=== PATIENT | female | born 1975 | race Caucasian/White ===

== ENCOUNTER 2019-10-22 00:09 | Emergency (ER) | payer MEDICARE, MEDICAID, SELFPAY ==
--- NOTE | 2019-10-22 00:14 | ED_ITS ---
HPI - Ear Problem General: Chief complaint: General Medical Stated complaint: LEFT EAR PAIN Time Seen by Provider: 10/22/19 00:13 Source: patient Mode of arrival: ambulatory Limitations: no limitations History of Present Illness: HPI Narrative: Patient comes in today with 2-day history of left ear pain. Patient reports a cough and cold symptoms for the last week. Patient appears mildly unwell. Patient appears in no acute distress. Patient appears in mild pain. Associated symptoms: Reports ear or mastoid pain Review of Systems General: Reports: 10 or more systems reviewed and unremarkable except in HPI and below ENMT: Reports: ear pain PFSH ED PFSH: Social History Smoking and tobacco status: current every day smoker Physical Exam Const: COMMON NORMALS: no apparent distress and oriented x3 GENERAL APPEARANCE: cooperative HENMT: COMMON NORMALS: normocephalic, external ears normal, EAC's normal and external nose normal HEAD & SCALP: normal to inspection and normocephalic FACE & SINUS: normal facial exam NOSE: external nose normal GENERAL EAR: hearing not grossly impaired EXTERNAL EAR: Yes external ears normal EXTERNAL AUDITORY CANAL: EAC's normal TYMPANIC MEMBRANE: TM abnormal TM laterality: left Details: dull and erythematous MOUTH: oral and palatal mucosa normal THROAT: posterior oropharynx normal Eye: COMMON NORMALS: PERRL and EOMs intact bilaterally PUPIL: Yes PERRL Neck/C-Spine: COMMON NORMALS: full ROM and no lymphadenopathy Lymph: LYMPHATIC: no lymphedema noted Chest: COMMONS NORMALS: inspection of chest normal and palpation of chest normal Resp: COMMON NORMALS: normal respiratory effort and clear to auscultation bilaterally AUSCULTATION: clear to auscultation bilaterally Cardio: COMMON NORMALS: regular rate and regular rhythm RATE: regular rate RHYTHM: regular rhythm GI: COMMON NORMALS: normal to inspection, nondistended, normoactive bowel sounds and non-tender : COMMON NORMALS: Yes no CVA tenderness BLADDER/KIDNEY EXAM: Yes no CVA tenderness Back/Pelvis: COMMON NORMALS: no CVA tenderness and thoracic and lumbar spine normal to inspection Extremity: COMMON NORMALS: normal to inspection GENERAL: No edema Neuro: COMMON NORMALS: oriented x3, moves all extremities and no focal motor deficits Psych: COMMON NORMALS: mental status grossly normal and cooperative Skin: COMMON NORMALS: no rashes or lesions noted GENERAL SKIN EXAM: no rashes or lesions noted Course Vital Signs: Vital signs: Vital Signs Temperature 97.5 F L 10/22/19 00:18 Pulse Rate 75 10/22/19 00:18 Respiratory Rate 18 10/22/19 00:18 Blood Pressure 134/83 10/22/19 00:18 Pulse Oximetry 96 10/22/19 00:18 MDM - Ear MDM Narrative: Medical decision making narrative: Patient comes in today with left ear pain. On exam we note cerumen in the left ear canal and tenderness with movement of the auricle of the ear. No significant canal swelling. Tympanic membrane is erythematous and dull. Differential diagnosis otitis externa, otitis media, otalgia, sinusitis, mastoiditis. Exam notes some otitis media with some cerumen in the bilateral canals. Patient will be put on amoxici llin thousand milligrams twice daily for 10 days. Patient will also be written for some carbamide peroxide drops for the ceruminosis. Patient reports understanding of care plan and need for follow-up. Discharge Plan Discharge Patient Disposition: Home, Self-Care Clinical Impression: Acute left otitis media, Excessive cerumen in left ear canal Condition: Stable Prescriptions: New Ear Drops (carbamide peroxide) 6.5 % drops 5 drp EAR-BOTH BID 4 Days Qty: 30 RF: 0 amoxicillin 500 mg capsule 1,000 mg PO BID Qty: 40 RF: 0 Discharge Orders: Discharge Order (Routine); Ordered 10/22/19 Ordered By: Awais Martel Discharge Diet: Usual diet Discharge Activity: Resume usual activity Patient Instructions: Cerumen Impaction (ED) Activity Restrictions/Additional Instructions: Acetaminophen and ibuprofen for pain Medications as directed Antibiotics as directed Follow-up with primary care in one week Case management will contact you with assistance finding primary care Coding Level of Care Code ED [employer] Operator for Snehal Hyde Exam Problem Focused
[2019-10-22 00:18] VITALS: BP 134/83; PULSE 75; RESP 18; TEMP 36.4; O2SAT 96; BMI 45.7
[2019-10-22 00:26] VITALS: BP 122/98; PULSE 73; RESP 14; O2SAT 94
[2019-10-22] MEDS: amoxicillin 500 mg Capsule 1000 MG PO (00:35)
[2019-10-22 01:14] VITALS: BP 134/92; PULSE 78; RESP 14; O2SAT 94
--- NOTE | 2019-10-27 14:05 | DCPLANNER ---
research laboratory manager had message to speak with patient about getting established with a primary care physician. research laboratory manager spoke with patient, she stated that she did want to have help in getting established with a primary care physician. research laboratory manager called [facility] [place], spoke with Mayra, patient was established and a followup appointment was scheduled for Friday, November 03, 2019 at 9:30 with TRAFFIC RATE CLERK, Carolina Raza. research laboratory manager called patient and gave patient the appointment information.
--- NOTE | 2019-11-05 17:27 | DCPLANNER ---
Patient did attend [place]19 [place] [facility] [place]
== END 2019-10-22 01:16 | disposition home or self-care (01) ==
PROVIDERS: Emergency Provider Nurse Practitioner Family
DX: H66.92 Otitis media, unspecified, left ear (principal); H61.22 Impacted cerumen, left ear; F17.200 Nicotine dependence, unspecified, uncomplicated
CPT/HCPCS: 99281; 99282

== ENCOUNTER → 2019-12-02 07:39 | Outpatient (BNVA) | payer MEDICARE, MEDICAID, SELFPAY | PROVIDERS: PCP Nurse Practitioner; Referring Provider Nurse Practitioner; Visit Provider Specialist | DX: G43.711 Chronic migraine without aura, intractable, with status migrainosus (principal); F31.9 Bipolar disorder, unspecified; F17.210 Nicotine dependence, cigarettes, uncomplicated; R73.03 Prediabetes; E03.9 Hypothyroidism, unspecified; F41.8 Other specified anxiety disorders; Z76.89 Persons encountering health services in other specified circumstances | CPT/HCPCS: 80053; 80061; 82044; 83036; 84443; 85025; 99204 ==

== ENCOUNTER 2019-12-17 08:40 | Outpatient (CLI) | payer MEDICARE, MEDICAID, SELFPAY ==
--- NOTE | 2019-12-17 09:00 | CT_ITS ---
WS: [id number] CT HEAD NONCONTRAST HISTORY: migraine TECHNIQUE: Contiguous axial imaging performed through the brain in 2.5 mm imaging. Bone and soft tiss ue windows. All CT scans at [facility] use at least one of these dose optimization techniq ues: automated exposure control; mA and/or kV adjustment per patient size (includes targeted exams wh ere dose is matched to clinical indication); or iterative reconstruction. DLP: 925.91 mGycm COMPARISON: None available. No acute intracranial hemorrhage, midline shift or mass effect. No atrophy or prior infarcts or herniation. Ventricles: Normal size with no hydrocephalus. Paranasal sinuses: As visualized are clear. Mastoid air cells: Well pneumatized. Calvarium and scalp: Skull is intact with no soft tissue edema or swelling. CT/CT head wo con* [id number] IMPRESSION: Negative head CT.
== END 2019-12-17 08:41 | disposition home or self-care (01) ==
LOC: RADWPI 08:44
PROVIDERS: PCP Nurse Practitioner; Visit Provider Specialist
DX: G43.111 Migraine with aura, intractable, with status migrainosus (principal)
CPT/HCPCS: 70450

== ENCOUNTER 2019-12-28 21:41 | Inpatient (IN) | payer MEDICARE, MEDICAID, SELFPAY ==
[2019-12-28 21:42] VITALS: BP 165/110; PULSE 93; RESP 18; TEMP 37.1; O2SAT 96
--- NOTE | 2019-12-28 21:50 | CTR_ITS ---
PROCEDURE INFORMATION: Exam: CT Head Without Contrast Exam date and time: 12/28/2019 10:21 PM Age: 44 years old Clinical indication: Altered mental status/memory loss; Additional info: AMS TECHNIQUE: Imaging protocol: Computed tomography of the head without contrast. Total DLP: 763.73 mGy-cm Radiation optimization: All CT scans at this facility use at least one of these dose optimization techniques: automated exposure control; mA and/or kV adjustment per patient size (includes targeted exams where dose is matched to clinical indication); or iterative reconstruction. COMPARISON: CT head wo con* [id number] 12/17/2019 8:59 AM FINDINGS: Brain: Normal. No hemorrhage. Unremarkable white matter. No mass effect. Ventricles: Normal. No ventriculomegaly. Bones/joints: Unremarkable. No acute fracture. Sinuses: Visualized sinuses are unremarkable. No fluid levels. Mastoid air cells: Visualized mastoid air cells are well aerated. Soft tissues: Unremarkable. CT/CT head wo con* [id number] IMPRESSION: No acute intracranial abnormality. Radiation Dose CTDIVOL = (mGy): DLP = 763.73 (mGy-cm)
--- NOTE | 2019-12-28 21:50 | XR_ITS ---
WS: [id number] CHEST XRAY TECHNIQUE: Portable chest. CLINICAL INFORMATION: ams COMPARISON: None. FINDINGS: Heart: Normal cardiac silhouette. Lungs: Lungs are clear. No consolidation or pleural effusion. Bones: Normal visualized bony structures. XR/XR chest 1V portable [id number] IMPRESSION: Normal chest
--- NOTE | 2019-12-28 21:50 | ECG_ITS ---
Measurements Intervals [place] Rate: 83 P: 52 MA: 165 QRS: 10 QRSD: 83 T: 15 QT: 403 QTc: 475 SINUS RHYTHM MINIMAL VOLTAGE CRITERIA FOR LVH, CONSIDER NORMAL VARIANT [MEETS CRITERIA IN ONE OF: R(aVL), S(V1), R(V5), R(V5/V6)+S(V1)] No previous ECG available for comparison Electronically Signed On 12-30-2019 6:38:29 CDT by Reji Spangler M.D. [email or web address]
--- NOTE | 2019-12-28 21:53 | ED_ITS ---
Documented by User: Dulce Taveras MD 12/29/19 11:03 HPI - Psych General: Chief Complaint: Psychiatric Symptoms Stated Complaint: confusion Time Seen by Provider: 12/28/19 21:45 Source: patient and EMS Mode of arrival: EMS Limitations: altered mental status History of Present Illness: HPI Narrative: 44-year-old female brought in by EMS as police were called to residents and they called EMS. Patient has a history of alcoholism. Patient here is being very avoidant and not answering questions. She did tell me the date and her name and her 's name but unable to give any history. I am unsure why police were called to residents and EMS is unsure either. Patient denies any pain and has no medical complaints. She does appear quite confused though and will only answer simple questions for me. Associated symptoms: Deny depression Review of Systems Const: Denies: fever, chills, body aches or change in appetite Eyes: Denies: blurry vision or eye discomfort ENMT: Denies: throat pain or dental pain Card: Denies: chest pain Resp: Denies: shortness of breath GI: Denies: abdominal pain, nausea, vomiting or diarrhea : Denies: painful urination Musc: Denies: neck pain or back pain Skin/Breast: Denies: rash Neuro: Denies: headache Psych: Reports: anxiety; Denies: depression Carlos Manuel/Lymph: Denies: easy bruising All/Imm: Denies: hives PFSH ED PFSH: Medical History Endometriosis Hypothyroidism IBS (irritable bowel syndrome) Migraine Surgical History S/P appendectomy S/P cholecystectomy S/P endometrial ablation S/P foot surgery S/P sinus surgery S/P tonsillectomy Family History Grandmother Dementia Stroke Cancer Mother Hypertension Father Hypertension Grandfather Diabetes Social History Smoking and tobacco status: never smoked Alcohol intake: current Alcohol intake frequency: holidays/special occasions only History of recent travel: No Female Reproductive History: Date of last menstrual period: 10/01/19 Physical Exam Const: COMMON NORMALS: oriented x3 EXAM LIMITATIONS: altered mental status GENERAL APPEARANCE: disheveled HENMT: COMMON NORMALS: normocephalic and head/scalp atraumatic HEAD & SCALP: normocephalic and atraumatic Eye: COMMON NORMALS: PERRL and EOMs intact bilaterally PUPIL: Yes PERRL Neck/C-Spine: COMMON NORMALS: full ROM and supple Chest: COMMONS NORMALS: inspection of chest normal and palpation of chest normal Resp: COMMON NORMALS: normal respiratory effort, no retractions, no use of accessory muscles and clear to auscultation bilaterally AUSCULTATION: clear to auscultation bilaterally Cardio: COMMON NORMALS: regular rate, regular rhythm and no murmurs RATE: regular rate RHYTHM: regular rhythm GI: COMMON NORMALS: normal to inspection, nondistended, normoactive bowel sounds, soft to palpation, non-tender and no masses PALPATION: Yes soft Extremity: COMMON NORMALS: normal to inspection and full ROM Neuro: COMMON NORMALS: oriented x3, moves all extremities and no focal motor deficits Psych: APPEARANCE: Yes unkempt and Yes disheveled ATTITUDE: Yes paranoid, Yes evasive and Yes guarded Skin: COMMON NORMALS: no rashes or lesions noted and no wounds GENERAL SKIN EXAM: no rashes or lesions noted MDM - Psych MDM Narrative: Medical decision making narrative: Patient's care turned over to Dr. Prieto. Patient is pending CT head along with labs. Patient appears to be acutely psychotic at this time. Lab Data: Labs: Lab Results 12/28/19 12/28/19 12/28/19 Range/Units 22:20 22:30 22:30 WBC 12.2 H (4.0-10.0) 10^3/ uL RBC 4.49 (4.1-5.3) 10^6/u L Hgb 13.4 (11.5-15.3) g/dL Hct 42.4 (37.0-47.0) % MCV 94.4 (81-99) fL MCH 29.8 (28.0-34.0) pg MCHC 31.6 (30.0-36.0) g/dL RDW 13.6 (12.1-15.1) % Plt Count 271 (130-400) 10^3/c mm MPV 11.5 H (7.4-10.4) fL Neut % (Auto) 66.6 % Lymph % (Auto) 24.7 % [facility] % (Auto) 6.8 % Eos % (Auto) 1.1 % Baso % (Auto) 0.4 % Neut # (Auto) 8.1 H (1.8-7.7) 10^3/u L Lymph # (Auto) 3.0 (0.8-4.8) 10^3/u L [facility] # (Auto) 0.8 (0.2-0.9) 10^3/u L Eos # (Auto) 0.1 (0.0-0.8) 10^3/u L Baso # (Auto) 0.1 (0.0-0.1) 10^3/u L Nucleated RBC % (a uto) 0 % Nucleated RBCs # 0.0 /100WBC Specimen Type Sample Site ABG pH (7.35-7.45) ABG pCO2 (35-45) mmHg ABG pO2 (80.0-100.0) mmH g ABG HCO3 (22-26) mmol/L ABG Base Excess (-2.0-2.0) mmol/ L Abraham Test Hematocrit (37-47) % O2 Delivery Device Psychiatric Technician ID Sodium 140 (136-145) mmol/L Potassium 4.2 (3.5-5.1) mmol/L Chloride 100 (98-107) mmol/L Carbon Dioxide 19 L (22-29) mmol/L Anion Gap 25.2 H (5-19) BUN 10 (6-20) mg/dL Creatinine 0.9 (0.5-0.9) mg/dL GFR Calculation 67.4 L (90-130) mL/min Glucose 80 (65-115) mg/dL POC Glucose 87 (70-110) mg/dL Calculated Osmolal ity 285 (285-295) mOsm/k g Calcium 9.3 (8.5-10.5) mg/dL Magnesium (1.7-2.3) mg/dL Total Bilirubin 0.4 (0.15-1.2) mg/dL AST 28 (0-32) U/L ALT 17 (0-33) U/L Alkaline Phosphata se 82 (35-105) IU/L Troponin T Baselin e (0-10) ng/mL Total Protein 7.1 (6.6-8.7) g/dL Albumin 4.2 (3.5-5.2) g/dL Globulin 2.9 (1.3-4.6) g/dL TSH 3.66 (0.27-4.20) uIU/ mL HCG, Qual (Negative) Ser , Neema i-Qnt mIU/mL Urine Color (Yellow) Urine Appearance (CLEAR) Urine pH (5-7) Ur Specific Gravit y (1.005-1.030) Urine Protein (Negative) Urine Glucose (UA) (Normal) Urine Ketones (Negative) Urine Blood (Negative) Urine Nitrate (Negative) Urine Bilirubin (NEGATIVE) Urine Urobilinogen (Negative) mg/dL Ur Leukocyte Brandee ase (Negative) Urine RBC (0-2) /hpf Urine WBC (0-5) /hpf Ur Squamous Epith Cells (0-5) Urine Bacteria (NONE) Urine Trichomonas Salicylates < 0.3 L (3-10) mg/dL Urine Opiates Scre en (Negative) ng/mL Acetaminophen < 5.0 L (10-30) ug/mL Ur Barbiturates Sc reen (Negative) ng/mL Phenytoin (10-20) ug/mL Valproic Acid (50-100) mcg/mL Carbamazepine (4.0-12.0) ug/mL Ur Phencyclidine S crn (Negative) ng/mL Ur Amphetamines Sc reen (Negative) ng/mL U Benzodiazepines Scrn (Negative) ng/mL [place] (0.6-1.2) mmol/L Urine Cocaine Scre en (Negative) ng/mL U Marijuana (THC) Screen (Negative) ng/mL Ethyl Alcohol < 10 (0-10) mg/dL Serum Ketones (Negative) 12/28/19 12/28/19 12/28/19 Range/Units 22:30 23:50 23:50 WBC (4.0-10.0) 10^3/ uL RBC (4.1-5.3) 10^6/u L Hgb (11.5-15.3) g/dL Hct (37.0-47.0) % MCV (81-99) fL MCH (28.0-34.0) pg MCHC (30.0-36.0) g/dL RDW (12.1-15.1) % Plt Count (130-400) 10^3/c mm MPV (7.4-10.4) fL Neut % (Auto) % Lymph % (Auto) % [facility] % (Auto) % Eos % (Auto) % Baso % (Auto) % Neut # (Auto) (1.8-7.7) 10^3/u L Lymph # (Auto) (0.8-4.8) 10^3/u L [facility] # (Auto) (0.2-0.9) 10^3/u L Eos # (Auto) (0.0-0.8) 10^3/u L Baso # (Auto) (0.0-0.1) 10^3/u L Nucleated RBC % (a uto) % Nucleated RBCs # /100WBC Specimen Type Sample Site ABG pH (7.35-7.45) ABG pCO2 (35-45) mmHg ABG pO2 (80.0-100.0) mmH g ABG HCO3 (22-26) mmol/L ABG Base Excess (-2.0-2.0) mmol/ L Abraham Test Hematocrit (37-47) % O2 Delivery Device Psychiatric Technician ID Sodium (136-145) mmol/L Potassium (3.5-5.1) mmol/L Chloride (98-107) mmol/L Carbon Dioxide (22-29) mmol/L Anion Gap (5-19) BUN (6-20) mg/dL Creatinine (0.5-0.9) mg/dL GFR Calculation (90-130) mL/min Glucose (65-115) mg/dL POC Glucose (70-110) mg/dL Calculated Osmolal ity (285-295) mOsm/k g Calcium (8.5-10.5) mg/dL Magnesium (1.7-2.3) mg/dL Total Bilirubin (0.15-1.2) mg/dL AST (0-32) U/L ALT (0-33) U/L Alkaline Phosphata se (35-105) IU/L Troponin T Baselin e (0-10) ng/mL Total Protein (6.6-8.7) g/dL Albumin (3.5-5.2) g/dL Globulin (1.3-4.6) g/dL TSH (0.27-4.20) uIU/ mL HCG, Qual (Negative) Ser , Neema i-Qnt 0.50 mIU/mL Urine Color Yellow (Yellow) Urine Appearance Cloudy (CLEAR) Urine pH 5 (5-7) Ur Specific Gravit y 1.030 (1.005-1.030) Urine Protein Neg (Negative) Urine Glucose (UA) Norm (Normal) Urine Ketones 3+ H (Negative) Urine Blood 2+ H (Negative) Urine Nitrate Negative (Negative) Urine Bilirubin Neg (NEGATIVE) Urine Urobilinogen Norm (Negative) mg/dL Ur Leukocyte Brandee ase 2+ H (Negative) Urine RBC 0-4 H (0-2) /hpf Urine WBC 5-10 H (0-5) /hpf Ur Squamous Epith Cells 10-15 H (0-5) Urine Bacteria 1+ H (NONE) Urine Trichomonas 1+ H Salicylates (3-10) mg/dL Urine Opiates Scre en Negative (Negative) ng/mL Acetaminophen (10-30) ug/mL Ur Barbiturates Sc reen Negative (Negative) ng/mL Phenytoin (10-20) ug/mL Valproic Acid (50-100) mcg/mL Carbamazepine (4.0-12.0) ug/mL Ur Phencyclidine S crn Negative (Negative) ng/mL Ur Amphetamines Sc reen Negative (Negative) ng/mL U Benzodiazepines Scrn Negative (Negative) ng/mL [place] (0.6-1.2) mmol/L Urine Cocaine Scre en Negative (Negative) ng/mL U Marijuana (THC) Screen Positive H (Negative) ng/mL Ethyl Alcohol (0-10) mg/dL Serum Ketones (Negative) 12/28/19 12/29/19 12/29/19 Range/Units 23:50 00:48 00:48 WBC (4.0-10.0) 10^3/ uL RBC (4.1-5.3) 10^6/u L Hgb (11.5-15.3) g/dL Hct (37.0-47.0) % MCV (81-99) fL MCH (28.0-34.0) pg MCHC (30.0-36.0) g/dL RDW (12.1-15.1) % Plt Count (130-400) 10^3/c mm MPV (7.4-10.4) fL Neut % (Auto) % Lymph % (Auto) % [facility] % (Auto) % Eos % (Auto) % Baso % (Auto) % Neut # (Auto) (1.8-7.7) 10^3/u L Lymph # (Auto) (0.8-4.8) 10^3/u L [facility] # (Auto) (0.2-0.9) 10^3/u L Eos # (Auto) (0.0-0.8) 10^3/u L Baso # (Auto) (0.0-0.1) 10^3/u L Nucleated RBC % (a uto) % Nucleated RBCs # /100WBC Specimen Type Sample Site ABG pH (7.35-7.45) ABG pCO2 (35-45) mmHg ABG pO2 (80.0-100.0) mmH g ABG HCO3 (22-26) mmol/L ABG Base Excess (-2.0-2.0) mmol/ L Abraham Test Hematocrit (37-47) % O2 Delivery Device Psychiatric Technician ID Sodium (136-145) mmol/L Potassium (3.5-5.1) mmol/L Chloride (98-107) mmol/L Carbon Dioxide (22-29) mmol/L Anion Gap (5-19) BUN (6-20) mg/dL Creatinine (0.5-0.9) mg/dL GFR Calculation (90-130) mL/min Glucose (65-115) mg/dL POC Glucose (70-110) mg/dL Calculated Osmolal ity (285-295) mOsm/k g Calcium (8.5-10.5) mg/dL Magnesium 1.9 (1.7-2.3) mg/dL Total Bilirubin (0.15-1.2) mg/dL AST (0-32) U/L ALT (0-33) U/L Alkaline Phosphata se (35-105) IU/L Troponin T Baselin e (0-10) ng/mL Total Protein (6.6-8.7) g/dL Albumin (3.5-5.2) g/dL Globulin (1.3-4.6) g/dL TSH (0.27-4.20) uIU/ mL HCG, Qual Negative (Negative) Ser , Neema i-Qnt mIU/mL Urine Color (Yellow) Urine Appearance (CLEAR) Urine pH (5-7) Ur Specific Gravit y (1.005-1.030) Urine Protein (Negative) Urine Glucose (UA) (Normal) Urine Ketones (Negative) Urine Blood (Negative) Urine Nitrate (Negative) Urine Bilirubin (NEGATIVE) Urine Urobilinogen (Negative) mg/dL Ur Leukocyte Brandee ase (Negative) Urine RBC (0-2) /hpf Urine WBC (0-5) /hpf Ur Squamous Epith Cells (0-5) Urine Bacteria (NONE) Urine Trichomonas Salicylates (3-10) mg/dL Urine Opiates Scre en (Negative) ng/mL Acetaminophen (10-30) ug/mL Ur Barbiturates Sc reen (Negative) ng/mL Phenytoin 0.8 L (10-20) ug/mL Valproic Acid 2.8 L (50-100) mcg/mL Carbamazepine 2.0 L (4.0-12.0) ug/mL Ur Phencyclidine S crn (Negative) ng/mL Ur Amphetamines Sc reen (Negative) ng/mL U Benzodiazepines Scrn (Negative) ng/mL [place] (0.6-1.2) mmol/L Urine Cocaine Scre en (Negative) ng/mL U Marijuana (THC) Screen (Negative) ng/mL Ethyl Alcohol (0-10) mg/dL Serum Ketones Negative (Negative) 12/29/19 12/29/19 12/29/19 Range/Units 00:48 00:48 00:49 WBC (4.0-10.0) 10^3/ uL RBC (4.1-5.3) 10^6/u L Hgb (11.5-15.3) g/dL Hct (37.0-47.0) % MCV (81-99) fL MCH (28.0-34.0) pg MCHC (30.0-36.0) g/dL RDW (12.1-15.1) % Plt Count (130-400) 10^3/c mm MPV (7.4-10.4) fL Neut % (Auto) % Lymph % (Auto) % [facility] % (Auto) % Eos % (Auto) % Baso % (Auto) % Neut # (Auto) (1.8-7.7) 10^3/u L Lymph # (Auto) (0.8-4.8) 10^3/u L [facility] # (Auto) (0.2-0.9) 10^3/u L Eos # (Auto) (0.0-0.8) 10^3/u L Baso # (Auto) (0.0-0.1) 10^3/u L Nucleated RBC % (a uto) % Nucleated RBCs # /100WBC Specimen Type Arterial Sample Site Radial, left ABG pH 7.35 (7.35-7.45) ABG pCO2 33.4 L (35-45) mmHg ABG pO2 92.6 (80.0-100.0) mmH g ABG HCO3 18.2 L (22-26) mmol/L ABG Base Excess -6.5 L (-2.0-2.0) mmol/ L Abraham Test N/a Hematocrit 42.2 (37-47) % O2 Delivery Device Room air Psychiatric Technician ID [email or web address] Sodium (136-145) mmol/L Potassium (3.5-5.1) mmol/L Chloride (98-107) mmol/L Carbon Dioxide (22-29) mmol/L Anion Gap (5-19) BUN (6-20) mg/dL Creatinine (0.5-0.9) mg/dL GFR Calculation (90-130) mL/min Glucose (65-115) mg/dL POC Glucose (70-110) mg/dL Calculated Osmolal ity (285-295) mOsm/k g Calcium (8.5-10.5) mg/dL Magnesium (1.7-2.3) mg/dL Total Bilirubin (0.15-1.2) mg/dL AST (0-32) U/L ALT (0-33) U/L Alkaline Phosphata se (35-105) IU/L Troponin T Baselin e 7 (0-10) ng/mL Total Protein (6.6-8.7) g/dL Albumin (3.5-5.2) g/dL Globulin (1.3-4.6) g/dL TSH (0.27-4.20) uIU/ mL HCG, Qual (Negative) Ser , Neema i-Qnt mIU/mL Urine Color (Yellow) Urine Appearance (CLEAR) Urine pH (5-7) Ur Specific Gravit y (1.005-1.030) Urine Protein (Negative) Urine Glucose (UA) (Normal) Urine Ketones (Negative) Urine Blood (Negative) Urine Nitrate (Negative) Urine Bilirubin (NEGATIVE) Urine Urobilinogen (Negative) mg/dL Ur Leukocyte Brandee ase (Negative) Urine RBC (0-2) /hpf Urine WBC (0-5) /hpf Ur Squamous Epith Cells (0-5) Urine Bacteria (NONE) Urine Trichomonas Salicylates (3-10) mg/dL Urine Opiates Scre en (Negative) ng/mL Acetaminophen (10-30) ug/mL Ur Barbiturates Sc reen (Negative) ng/mL Phenytoin (10-20) ug/mL Valproic Acid (50-100) mcg/mL Carbamazepine (4.0-12.0) ug/mL Ur Phencyclidine S crn (Negative) ng/mL Ur Amphetamines Sc reen (Negative) ng/mL U Benzodiazepines Scrn (Negative) ng/mL [place] 0.1 L (0.6-1.2) mmol/L Urine Cocaine Scre en (Negative) ng/mL U Marijuana (THC) Screen (Negative) ng/mL Ethyl Alcohol (0-10) mg/dL Serum Ketones (Negative) Discharge Plan Discharge Patient Disposition: Admitted As Inpatient Admit Provider: Ruth Gonzalez Clinical Impression: Acute psychosis Condition: Stable Referrals: Randi Raza FNP [Primary Care Provider] - Discharge Date/Time: 12/29/19 03:13 Coding Level of Care Code ED Ion Exchange Operator for Chg Fwd Exam Comprehensive Documented by User: Michelle Macdonald 12/29/19 02:09 HPI - Psych General: Chief Complaint: Psychiatric Symptoms Stated Complaint: confusion Time Seen by Provider: 12/28/19 21:45 PFSH ED PFSH: Medical History Endometriosis Hypothyroidism IBS (irritable bowel syndrome) Migraine Surgical History S/P appendectomy S/P cholecystectomy S/P endometrial ablation S/P foot surgery S/P sinus surgery S/P tonsillectomy Family History Grandmother Dementia Stroke Cancer Mother Hypertension Father Hypertension Grandfather Diabetes Social History Smoking and tobacco status: never smoked Alcohol intake: current Alcohol intake frequency: holidays/special occasions only History of recent travel: No MDM - Psych MDM Narrative: Medical decision making narrative: Case turned over to me from Dr. Taveras at change of shift. Patient will not answer questions consistently for me. She is alert to place and person but apparently does not want to answer questions about time. At times she is tearful and her responses do not make sense. She says things like I was not unresponsive , I think I am , she continues to call the nurse mother at times and appears to be having auditory hallucinations. The patient is continually tearful and responses do not make sense. I am concerned that she may be acutely psychotic. I see no sign of overdose or acute suicidal plan or gesture. The patient's labs are normal without any acute abnormality. I see no sign of sepsis, overdose, acidosis or other sign of ingestion. I reviewed the case in full with Dr. Noel who believes the patient is stable for admission to the neuropsychiatric unit. I then reviewed the case with Dr. Puga who is agreeable to accept the patient for admission. Lab Data: Attestation: I reviewed the patient's lab results. Labs: Lab Results 12/28/19 12/28/19 12/28/19 Range/Units 22:20 22:30 22:30 WBC 12.2 H (4.0-10.0) 10^3/ uL RBC 4.49 (4.1-5.3) 10^6/u L Hgb 13.4 (11.5-15.3) g/dL Hct 42.4 (37.0-47.0) % MCV 94.4 (81-99) fL MCH 29.8 (28.0-34.0) pg MCHC 31.6 (30.0-36.0) g/dL RDW 13.6 (12.1-15.1) % Plt Count 271 (130-400) 10^3/c mm MPV 11.5 H (7.4-10.4) fL Neut % (Auto) 66.6 % Lymph % (Auto) 24.7 % [facility] % (Auto) 6.8 % Eos % (Auto) 1.1 % Baso % (Auto) 0.4 % Neut # (Auto) 8.1 H (1.8-7.7) 10^3/u L Lymph # (Auto) 3.0 (0.8-4.8) 10^3/u L [facility] # (Auto) 0.8 (0.2-0.9) 10^3/u L Eos # (Auto) 0.1 (0.0-0.8) 10^3/u L Baso # (Auto) 0.1 (0.0-0.1) 10^3/u L Nucleated RBC % (a uto) 0 % Nucleated RBCs # 0.0 /100WBC Specimen Type Sample Site ABG pH (7.35-7.45) ABG pCO2 (35-45) mmHg ABG pO2 (80.0-100.0) mmH g ABG HCO3 (22-26) mmol/L ABG Base Excess (-2.0-2.0) mmol/ L Abraham Test Hematocrit (37-47) % O2 Delivery Device Psychiatric Technician ID Sodium 140 (136-145) mmol/L Potassium 4.2 (3.5-5.1) mmol/L Chloride 100 (98-107) mmol/L Carbon Dioxide 19 L (22-29) mmol/L Anion Gap 25.2 H (5-19) BUN 10 (6-20) mg/dL Creatinine 0.9 (0.5-0.9) mg/dL GFR Calculation 67.4 L (90-130) mL/min Glucose 80 (65-115) mg/dL POC Glucose 87 (70-110) mg/dL Calculated Osmolal ity 285 (285-295) mOsm/k g Calcium 9.3 (8.5-10.5) mg/dL Magnesium (1.7-2.3) mg/dL Total Bilirubin 0.4 (0.15-1.2) mg/dL AST 28 (0-32) U/L ALT 17 (0-33) U/L Alkaline Phosphata se 82 (35-105) IU/L Troponin T Baselin e (0-10) ng/mL Total Protein 7.1 (6.6-8.7) g/dL Albumin 4.2 (3.5-5.2) g/dL Globulin 2.9 (1.3-4.6) g/dL TSH 3.66 (0.27-4.20) uIU/ mL HCG, Qual (Negative) Ser , Neema i-Qnt mIU/mL Urine Color (Yellow) Urine Appearance (CLEAR) Urine pH (5-7) Ur Specific Gravit y (1.005-1.030) Urine Protein (Negative) Urine Glucose (UA) (Normal) Urine Ketones (Negative) Urine Blood (Negative) Urine Nitrate (Negative) Urine Bilirubin (NEGATIVE) Urine Urobilinogen (Negative) mg/dL Ur Leukocyte Brandee ase (Negative) Urine RBC (0-2) /hpf Urine WBC (0-5) /hpf Ur Squamous Epith Cells (0-5) Urine Bacteria (NONE) Urine Trichomonas Salicylates < 0.3 L (3-10) mg/dL Urine Opiates Scre en (Negative) ng/mL Acetaminophen < 5.0 L (10-30) ug/mL Ur Barbiturates Sc reen (Negative) ng/mL Phenytoin (10-20) ug/mL Valproic Acid (50-100) mcg/mL Carbamazepine (4.0-12.0) ug/mL Ur Phencyclidine S crn (Negative) ng/mL Ur Amphetamines Sc reen (Negative) ng/mL U Benzodiazepines Scrn (Negative) ng/mL [place] (0.6-1.2) mmol/L Urine Cocaine Scre en (Negative) ng/mL U Marijuana (THC) Screen (Negative) ng/mL Ethyl Alcohol < 10 (0-10) mg/dL Serum Ketones (Negative) 12/28/19 12/28/19 12/28/19 Range/Units 22:30 23:50 23:50 WBC (4.0-10.0) 10^3/ uL RBC (4.1-5.3) 10^6/u L Hgb (11.5-15.3) g/dL Hct (37.0-47.0) % MCV (81-99) fL MCH (28.0-34.0) pg MCHC (30.0-36.0) g/dL RDW (12.1-15.1) % Plt Count (130-400) 10^3/c mm MPV (7.4-10.4) fL Neut % (Auto) % Lymph % (Auto) % [facility] % (Auto) % Eos % (Auto) % Baso % (Auto) % Neut # (Auto) (1.8-7.7) 10^3/u L Lymph # (Auto) (0.8-4.8) 10^3/u L [facility] # (Auto) (0.2-0.9) 10^3/u L Eos # (Auto) (0.0-0.8) 10^3/u L Baso # (Auto) (0.0-0.1) 10^3/u L Nucleated RBC % (a uto) % Nucleated RBCs # /100WBC Specimen Type Sample Site ABG pH (7.35-7.45) ABG pCO2 (35-45) mmHg ABG pO2 (80.0-100.0) mmH g ABG HCO3 (22-26) mmol/L ABG Base Excess (-2.0-2.0) mmol/ L Abraham Test Hematocrit (37-47) % O2 Delivery Device Psychiatric Technician ID Sodium (136-145) mmol/L Potassium (3.5-5.1) mmol/L Chloride (98-107) mmol/L Carbon Dioxide (22-29) mmol/L Anion Gap (5-19) BUN (6-20) mg/dL Creatinine (0.5-0.9) mg/dL GFR Calculation (90-130) mL/min Glucose (65-115) mg/dL POC Glucose (70-110) mg/dL Calculated Osmolal ity (285-295) mOsm/k g Calcium (8.5-10.5) mg/dL Magnesium (1.7-2.3) mg/dL Total Bilirubin (0.15-1.2) mg/dL AST (0-32) U/L ALT (0-33) U/L Alkaline Phosphata se (35-105) IU/L Troponin T Baselin e (0-10) ng/mL Total Protein (6.6-8.7) g/dL Albumin (3.5-5.2) g/dL Globulin (1.3-4.6) g/dL TSH (0.27-4.20) uIU/ mL HCG, Qual (Negative) Ser , Neema i-Qnt 0.50 mIU/mL Urine Color Yellow (Yellow) Urine Appearance Cloudy (CLEAR) Urine pH 5 (5-7) Ur Specific Gravit y 1.030 (1.005-1.030) Urine Protein Neg (Negative) Urine Glucose (UA) Norm (Normal) Urine Ketones 3+ H (Negative) Urine Blood 2+ H (Negative) Urine Nitrate Negative (Negative) Urine Bilirubin Neg (NEGATIVE) Urine Urobilinogen Norm (Negative) mg/dL Ur Leukocyte Brandee ase 2+ H (Negative) Urine RBC 0-4 H (0-2) /hpf Urine WBC 5-10 H (0-5) /hpf Ur Squamous Epith Cells 10-15 H (0-5) Urine Bacteria 1+ H (NONE) Urine Trichomonas 1+ H Salicylates (3-10) mg/dL Urine Opiates Scre en Negative (Negative) ng/mL Acetaminophen (10-30) ug/mL Ur Barbiturates Sc reen Negative (Negative) ng/mL Phenytoin (10-20) ug/mL Valproic Acid (50-100) mcg/mL Carbamazepine (4.0-12.0) ug/mL Ur Phencyclidine S crn Negative (Negative) ng/mL Ur Amphetamines Sc reen Negative (Negative) ng/mL U Benzodiazepines Scrn Negative (Negative) ng/mL [place] (0.6-1.2) mmol/L Urine Cocaine Scre en Negative (Negative) ng/mL U Marijuana (THC) Screen Positive H (Negative) ng/mL Ethyl Alcohol (0-10) mg/dL Serum Ketones (Negative) 12/28/19 12/29/19 12/29/19 Range/Units 23:50 00:48 00:48 WBC (4.0-10.0) 10^3/ uL RBC (4.1-5.3) 10^6/u L Hgb (11.5-15.3) g/dL Hct (37.0-47.0) % MCV (81-99) fL MCH (28.0-34.0) pg MCHC (30.0-36.0) g/dL RDW (12.1-15.1) % Plt Count (130-400) 10^3/c mm MPV (7.4-10.4) fL Neut % (Auto) % Lymph % (Auto) % [facility] % (Auto) % Eos % (Auto) % Baso % (Auto) % Neut # (Auto) (1.8-7.7) 10^3/u L Lymph # (Auto) (0.8-4.8) 10^3/u L [facility] # (Auto) (0.2-0.9) 10^3/u L Eos # (Auto) (0.0-0.8) 10^3/u L Baso # (Auto) (0.0-0.1) 10^3/u L Nucleated RBC % (a uto) % Nucleated RBCs # /100WBC Specimen Type Sample Site ABG pH (7.35-7.45) ABG pCO2 (35-45) mmHg ABG pO2 (80.0-100.0) mmH g ABG HCO3 (22-26) mmol/L ABG Base Excess (-2.0-2.0) mmol/ L Abraham Test Hematocrit (37-47) % O2 Delivery Device Psychiatric Technician ID Sodium (136-145) mmol/L Potassium (3.5-5.1) mmol/L Chloride (98-107) mmol/L Carbon Dioxide (22-29) mmol/L Anion Gap (5-19) BUN (6-20) mg/dL Creatinine (0.5-0.9) mg/dL GFR Calculation (90-130) mL/min Glucose (65-115) mg/dL POC Glucose (70-110) mg/dL Calculated Osmolal ity (285-295) mOsm/k g Calcium (8.5-10.5) mg/dL Magnesium 1.9 (1.7-2.3) mg/dL Total Bilirubin (0.15-1.2) mg/dL AST (0-32) U/L ALT (0-33) U/L Alkaline Phosphata se (35-105) IU/L Troponin T Baselin e (0-10) ng/mL Total Protein (6.6-8.7) g/dL Albumin (3.5-5.2) g/dL Globulin (1.3-4.6) g/dL TSH (0.27-4.20) uIU/ mL HCG, Qual Negative (Negative) Ser , Neema i-Qnt mIU/mL Urine Color (Yellow) Urine Appearance (CLEAR) Urine pH (5-7) Ur Specific Gravit y (1.005-1.030) Urine Protein (Negative) Urine Glucose (UA) (Normal) Urine Ketones (Negative) Urine Blood (Negative) Urine Nitrate (Negative) Urine Bilirubin (NEGATIVE) Urine Urobilinogen (Negative) mg/dL Ur Leukocyte Brandee ase (Negative) Urine RBC (0-2) /hpf Urine WBC (0-5) /hpf Ur Squamous Epith Cells (0-5) Urine Bacteria (NONE) Urine Trichomonas Salicylates (3-10) mg/dL Urine Opiates Scre en (Negative) ng/mL Acetaminophen (10-30) ug/mL Ur Barbiturates Sc reen (Negative) ng/mL Phenytoin 0.8 L (10-20) ug/mL Valproic Acid 2.8 L (50-100) mcg/mL Carbamazepine 2.0 L (4.0-12.0) ug/mL Ur Phencyclidine S crn (Negative) ng/mL Ur Amphetamines Sc reen (Negative) ng/mL U Benzodiazepines Scrn (Negative) ng/mL [place] (0.6-1.2) mmol/L Urine Cocaine Scre en (Negative) ng/mL U Marijuana (THC) Screen (Negative) ng/mL Ethyl Alcohol (0-10) mg/dL Serum Ketones Negative (Negative) 12/29/19 12/29/19 12/29/19 Range/Units 00:48 00:48 00:49 WBC (4.0-10.0) 10^3/ uL RBC (4.1-5.3) 10^6/u L Hgb (11.5-15.3) g/dL Hct (37.0-47.0) % MCV (81-99) fL MCH (28.0-34.0) pg MCHC (30.0-36.0) g/dL RDW (12.1-15.1) % Plt Count (130-400) 10^3/c mm MPV (7.4-10.4) fL Neut % (Auto) % Lymph % (Auto) % [facility] % (Auto) % Eos % (Auto) % Baso % (Auto) % Neut # (Auto) (1.8-7.7) 10^3/u L Lymph # (Auto) (0.8-4.8) 10^3/u L [facility] # (Auto) (0.2-0.9) 10^3/u L Eos # (Auto) (0.0-0.8) 10^3/u L Baso # (Auto) (0.0-0.1) 10^3/u L Nucleated RBC % (a uto) % Nucleated RBCs # /100WBC Specimen Type Arterial Sample Site Radial, left ABG pH 7.35 (7.35-7.45) ABG pCO2 33.4 L (35-45) mmHg ABG pO2 92.6 (80.0-100.0) mmH g ABG HCO3 18.2 L (22-26) mmol/L ABG Base Excess -6.5 L (-2.0-2.0) mmol/ L Abraham Test N/a Hematocrit 42.2 (37-47) % O2 Delivery Device Room air Psychiatric Technician ID [email or web address] Sodium (136-145) mmol/L Potassium (3.5-5.1) mmol/L Chloride (98-107) mmol/L Carbon Dioxide (22-29) mmol/L Anion Gap (5-19) BUN (6-20) mg/dL Creatinine (0.5-0.9) mg/dL GFR Calculation (90-130) mL/min Glucose (65-115) mg/dL POC Glucose (70-110) mg/dL Calculated Osmolal ity (285-295) mOsm/k g Calcium (8.5-10.5) mg/dL Magnesium (1.7-2.3) mg/dL Total Bilirubin (0.15-1.2) mg/dL AST (0-32) U/L ALT (0-33) U/L Alkaline Phosphata se (35-105) IU/L Troponin T Baselin e 7 (0-10) ng/mL Total Protein (6.6-8.7) g/dL Albumin (3.5-5.2) g/dL Globulin (1.3-4.6) g/dL TSH (0.27-4.20) uIU/ mL HCG, Qual (Negative) Ser , Neema i-Qnt mIU/mL Urine Color (Yellow) Urine Appearance (CLEAR) Urine pH (5-7) Ur Specific Gravit y (1.005-1.030) Urine Protein (Negative) Urine Glucose (UA) (Normal) Urine Ketones (Negative) Urine Blood (Negative) Urine Nitrate (Negative) Urine Bilirubin (NEGATIVE) Urine Urobilinogen (Negative) mg/dL Ur Leukocyte Brandee ase (Negative) Urine RBC (0-2) /hpf Urine WBC (0-5) /hpf Ur Squamous Epith Cells (0-5) Urine Bacteria (NONE) Urine Trichomonas Salicylates (3-10) mg/dL Urine Opiates Scre en (Negative) ng/mL Acetaminophen (10-30) ug/mL Ur Barbiturates Sc reen (Negative) ng/mL Phenytoin (10-20) ug/mL Valproic Acid (50-100) mcg/mL Carbamazepine (4.0-12.0) ug/mL Ur Phencyclidine S crn (Negative) ng/mL Ur Amphetamines Sc reen (Negative) ng/mL U Benzodiazepines Scrn (Negative) ng/mL [place] 0.1 L (0.6-1.2) mmol/L Urine Cocaine Scre en (Negative) ng/mL U Marijuana (THC) Screen (Negative) ng/mL Ethyl Alcohol (0-10) mg/dL Serum Ketones (Negative) EKG Data^: EKG 1: Attestation: I personally reviewed and interpreted this EKG as follows: EKG interpretation date: 12/28/19 EKG interpretation time: 22:09 Interpretation: Normal sinus rhythm at 83 beats a minute, nonspecific ST and T wave changes, possible LVH. EKG 2: Attestation: I personally reviewed and interpreted this EKG as follows: EKG interpretation date: 12/29/19 EKG interpretation time: 23:56 Interpretation: Normal sinus rhythm at 73 beats a minute, no acute ST or T wave changes. Discharge Plan Discharge Patient Disposition: Admitted As Inpatient Admit Provider: Ruth Gonzalez Clinical Impression: Acute psychosis Condition: Stable Referrals: Randi Raza FNP [Primary Care Provider] - Discharge Date/Time: 12/29/19 03:13 Coding Level of Care Code ED Ion Exchange Operator for Chg Fwd Exam Comprehensive
[2019-12-28] MEDS: sodium chloride 0.9% 1,000 ML 999 ML IV (22:09)
--- NOTE | 2019-12-28 22:16 | PC.NURSE ---
To add on to original note, patient does talk to herself
[2019-12-28 22:28] LABS: Glucose Point of Care 87 mg/dL (70-110)
[2019-12-28 22:38] VITALS: BP 139/61; PULSE 81; RESP 18; O2SAT 96
[2019-12-28 22:40] LABS: Basophils # 0.1 10^3/uL (0.0-0.1); Basophils % 0.4 %; Eosinophils # 0.1 10^3/uL (0.0-0.8); Eosinophils % 1.1 %; Hematocrit 42.4 % (37.0-47.0); Hemoglobin 13.4 g/dL (11.5-15.3); Lymphocytes % 24.7 %; Mean Corpuscular HGB Conc 31.6 g/dL (30.0-36.0); Mean Corpuscular Hemoglobin 29.8 pg (28.0-34.0); Mean Corpuscular Volume 94.4 fL (81-99); Mean Platelet Volume 11.5 fL (7.4-10.4); Monocytes # 0.8 10^3/uL (0.2-0.9); Monocytes % 6.8 %; Neutrophils # 8.1 10^3/uL (1.8-7.7); Neutrophils % 66.6 %; Nucleated Red Blood Cells % 0 %; Platelet Count 271 10^3/cmm (130-400); Red Blood Count 4.49 10^6/uL (4.1-5.3); Red Cell Distribution Width 13.6 % (12.1-15.1); White Blood Count 12.2 10^3/uL (4.0-10.0)
--- NOTE | 2019-12-28 22:43 | PC.NURSE ---
DUring assessment, pt states she feels movement in her lower abdomen. When asked if she is , pt states she is, but will not provide EDC or if she had a positive test. Pt states she missed her period last month, and refused to provide any further information. notifpola
--- NOTE | 2019-12-28 22:54 | PC.NURSE ---
Patient stated that her father contacted the ambulance, and that he was worried about her hurting herself. She states that she does not intend on hurting herself.
[2019-12-28 23:00] VITALS: BP 130/83; PULSE 87; RESP 16; O2SAT 97
[2019-12-28 23:18] LABS: Acetaminophen < 5.0 ug/mL (10-30); Albumin Level 4.2 g/dL (3.5-5.2); Alcohol Level < 10 mg/dL (0-10); Alkaline Phosphatase 82 IU/L (35-105); Anion Gap 25.2 (5-19); Blood Urea Nitrogen 10 mg/dL (6-20); Calcium 9.3 mg/dL (8.5-10.5); Carbon Dioxide 19 mmol/L (22-29); Chloride 100 mmol/L (98-107); Globulin 2.9 g/dL (1.3-4.6); Glomerular Filtration Rate 67.4 mL/min (90-130); Glucose 80 mg/dL (65-115); Osmolality Calculated 285 mOsm/kg (285-295); Potassium 4.2 mmol/L (3.5-5.1); Salicylate < 0.3 mg/dL (3-10); Sodium 140 mmol/L (136-145); Thyroid Stimulating Hormone 3.66 uIU/mL (0.27-4.20); Total Bilirubin 0.4 mg/dL (0.15-1.2); Total Protein 7.1 g/dL (6.6-8.7)
[2019-12-28 23:19] LABS: Alanine Aminotransferase 17 U/L (0-33); Aspartate Amino Transferase 28 U/L (0-32)
[2019-12-28 23:31] VITALS: BP 139/79; PULSE 81; RESP 20; O2SAT 97
--- NOTE | 2019-12-28 23:32 | PC.NURSE ---
I try to help keep the patient tra when she begins to cry.
--- NOTE | 2019-12-28 23:42 | ECG_ITS ---
Measurements Intervals [place] Rate: 73 P: 46 ID: [id number] QRS: 25 QRSD: 91 T: 10 QT: 417 QTc: 460 SINUS RHYTHM NONSPECIFIC T-WAVE ABNORMALITY No previous ECG available for comparison Electronically Signed On 12-30-2019 6:38:48 CDT by Reji Spangler M.D. [id number]
--- NOTE | 2019-12-28 23:58 | PC.NURSE ---
urine was collected and sent to lab.
[2019-12-29] VITALS (10 sets, daily range): BP systolic 105–155; BP diastolic 69–95; PULSE 76–104; RESP 16–20; TEMP 36.8–37.6; O2SAT 97–98; BMI 48.4
--- NOTE | 2019-12-29 00:04 | PC.NURSE ---
Per asked me to ask the patient if she can remember or know why or how she came to the ER. Patient stated she couldn't remember or know who may have called for the ambulance and does not know why. She continues to randomly laugh and cry and be very confused. Her nurse is also aware.
--- NOTE | 2019-12-29 00:32 | PC.NURSE ---
During pt rounding, pt speaking random words and phrases, not to responding to staff that is present. Dr notified. requesting affidavit for 96h hold
--- NOTE | 2019-12-29 00:34 | PC.NURSE ---
As noted in sitter comments, I tried asking the patient as to why or how she came here to the hospital, she stated that she did not want to talk about it and grimaced at the thought as to why she is here. She shouts random things and sentences on top of her mood moving from sad/crying to happy/laughing.
[2019-12-29 00:37] LABS: Amphetamines Screen Urine Negative (Negative); Barbiturates Screen Urine Negative (Negative); Benzodiazepines Screen Urine Negative (Negative); Cocaine Screen Urine Negative (Negative); Opiate Screen Urine Negative (Negative); PCP Screen Urine Negative (Negative); THC Screen Urine Positive (Negative)
[2019-12-29 00:38] LABS: Add Urine Microscopic? YES; Bilirubin Urine Neg (NEGATIVE); Blood Urine 2+ (Negative); Glucose Urine UA Norm (Normal); Ketones Urine 3+ (Negative); Leukocyte Esterase Urine 2+ (Negative); Nitrate Urine Negative (Negative); Protein Urine Neg (Negative); RBC Urine 0-4 /hpf (0-2); Urine Appearance Cloudy (CLEAR); Urine Color Yellow (Yellow); Urobilinogen Urine Norm (Negative); pH Urine 5 (5-7)
[2019-12-29 00:39] LABS: Add Urine Culture? Yes; Bacteria Urine 1+; Trichomonas Urine 1+
[2019-12-29 00:48] LABS: HCG Qualitative Urine. Negative (Negative)
[2019-12-29] MEDS: haloperidol inj 5 mg/mL INJ 1 mL IM ×2 (00:56→01:31)
[2019-12-29 01:00] LABS: ABG PCO2 33.4 mmHg (35-45); ABG PH Result 7.35 (7.35-7.45); Arterial Blood Gas Hematocrit 42.2 % (37-47); Base Excess ABG -6.5 mmol/L (-2.0-2.0); Blood Gas Sample Site Radial, left; Blood Gas Sample Type Arterial; HCO3 ABG 18.2 mmol/L (22-26); Oxygen Device ROOM AIR; PO2 ABG 92.6 mmHg (80.0-100.0)
[2019-12-29 01:06] LABS: Ketone (Acetest) Serum Negative (Negative)
[2019-12-29 01:10] LABS: Magnesium 1.9 mg/dL (1.7-2.3); Phenytoin Dilantin 0.8 ug/mL (10-20); Valproic Acid Level 2.8 mcg/mL (50-100)
[2019-12-29 01:12] LABS: Troponin(5th) Baseline 7 ng/mL (0-10)
[2019-12-29 01:17] LABS: Lithium 0.1 mmol/L (0.6-1.2)
[2019-12-29] MEDS: sodium chloride 0.9% 1,000 ML 999 ML IV (01:32)
--- NOTE | 2019-12-29 01:53 | PC.NURSE ---
[address] completed per Dr vance
--- NOTE | 2019-12-29 01:55 | PC.NURSE ---
pt becoming extremely agitated speaking to voices not heard in room
[2019-12-29] MEDS: LORazepam 2 mg/mL INJ 1 mL IM ×2 (02:11→02:20)
--- NOTE | 2019-12-29 02:48 | PC.NURSE ---
vo obtained from for 2mg Ativan IM. Pt now resting comfortably on bed
--- NOTE | 2019-12-29 05:42 | ECG_ITS ---
Measurements Intervals [place] Rate: 107 P: 70 IN: 163 QRS: 27 QRSD: 86 T: -5 QT: 345 QTc: [address] & T-WAVE ABNORMALITY ABNORMAL RHYTHM ECG INTERPRETATION BASED ON A DEFAULT AGE OF 40 YEARS No previous ECG available for comparison Electronically Signed On 12-30-2019 6:45:09 CDT by Reji Spangler M.D. [id number]
[2019-12-29 06:33] LABS: Glucose Point of Care 94 mg/dL (70-110)
[2019-12-29 07:06] LABS: Troponin 5 6HR 6.45 ng/mL (0-10)
[2019-12-29 07:10] LABS: Troponin 5 6HR Delta -0.55 ng/L (0-12)
--- NOTE | 2019-12-29 12:00 | PM.NHP ---
Providers/Chief Complaint Admitting Physician: Ruth Gonzalez MD Primary Care Provider: HIRA Chauhan Chief Complaint: confusion HPI NPU History of Present Illness Jonna Zaidi is a 44 year old female who presents today very resistant to the interview. She was not interested in having a conversation or allowing this commercial loan underwriter to give a full evaluative process. We discussed the purpose of her visit, and she very clearly, adamantly, and angrily communicated that she brought herself here. However, we acknowledged that she is on a 96-hour hold and people have filled out affidavits. She endorsed that she needed to go home, and this commercial loan underwriter acknowledged to her that her one vehicle to go home was for her to talk with me and explain the circumstances that brought her here. I offered to her that I would be very open minded and open to the possibility of this being a quick process if the information moves us in that direction, however, she was not willing to engage in the conversation. I asked if she was interested in initiating some medication to help with whatever symptoms led to her bringing herself here, and she was resistant and rejected that approach. Meds NPU Home Medications Medication Instructions Recorded Confirmed Last Taken Type ufsxwnt-dgswnfqqyaicr-yrkqcbri 250 2 tab PO DAILY PRN tab 11/03/19 12/02/19 Unknown History mg-250 mg-65 mg tablet bupropion HCl 150 mg 24 hr tablet, 150 mg PO QAM 11/03/19 12/02/19 Unknown History extended release metformin 500 mg tablet,extended 500 mg PO DAILY 11/03/19 12/02/19 Unknown History release 24 hr topiramate 100 mg tablet 100 mg PO DAILY #30 tab 12/02/19 12/29/19 Unknown Rx levothyroxine 137 mcg capsule 137 mcg PO DAILY #30 cap 12/03/19 12/29/19 Unknown Rx Maxalt-[facility] See Rx Instructions .ROUTE 12/29/19 12/29/19 Unknown History .COMPLEX PRN MDD 3 tablets Allergies Allergy/AdvReac Type Severity Reaction Status Date / Time metronidazole [From Flagyl] Allergy ADR-Itching Verified 12/28/19 21:49 Sulfa (Sulfonamide Allergy ALGY-Bliste Verified 12/28/19 21:49 Antibiotics) r sumatriptan [From Imitrex] Allergy ALGY-Rash Verified 12/28/19 21:49 PFSH NPU PFSH: Medical History Endometriosis Hypothyroidism IBS (irritable bowel syndrome) Migraine Surgical History S/P appendectomy S/P cholecystectomy S/P endometrial ablation S/P foot surgery S/P sinus surgery S/P tonsillectomy Family History Grandmother Dementia Stroke Cancer Mother Hypertension Father Hypertension Grandfather Diabetes Social History Smoking and tobacco status: never smoked Alcohol intake: current Alcohol intake frequency: holidays/special occasions only History of recent travel: No Mental Status Exam MSE Comments: This is an obese, white female, with adequate dress, grooming, and eye contact. No abnormal movements, except for significant psychomotor retardation. Mostly uncooperative with exam in mild distress. Speech was limited and decreased rate and volume. Mood described as okay; affect depressed and irritable. Thought process, mostly organized. Thought content: patient did not respond to questions about lethality or perceptual disturbances; she did not appear to be responding to internal stimuli. Attention and concentration appeared intact, and memory was unreliable, but none were formally tested. She is alert and oriented to person and place. Insight and judgment are impaired. Vitals/I&O/Wt Last Vital Signs Temp 98.2 F 12/29/19 21:41 Pulse 97 12/29/19 21:41 Resp 17 12/29/19 21:41 BP 153/90 12/29/19 21:41 Pulse Ox 97 12/29/19 21:41 Weight last 48 hrs Weight 120.259 kg Data NPU : 12/28/19 22:30 12/28/19 22:30 A&P Assessment and plan (1) Acute psychosis: This is a 44 year old, white female, who presented on a 96-hour hold secondary to concerns for lethality and depression, who presents uncooperative with the evaluation but has been seen tearful by the staff. Continue current medication, except: Will continue to discuss possible medication changes or additions with the patient. Encourage individual and milieu therapy. Continue q-15 minute checks for safety. Will work with social work team to get collateral information on her case. Status: Acute (2) Bipolar 1 disorder, depressed: Status: Acute (3) Anxiety with depression: Status: Acute Involuntary Hold Information 96 Hour Hold: 96 Hour Involuntary Admission: Yes 96 Hour Hold Ending Date: 01/04/20 96 Hour Hold Ending Time: 01:15 Attestations NPU Medical Necessity Statement*: Inpatient hospitalization is medically necessary and the clinically appropriate intervention at this time. She will be in the hospital for over two midnights. We will monitor medications and make changes as indicated. Likely length of stay is three to five days. Coding Level of Care Code Acute Wharf Builder for [place] Fwd Diagnoses Acute psychosis F23 Bipolar 1 disorder, depressed F31.9 Anxiety with depression F41.8
--- NOTE | 2019-12-29 16:29 | PC.NURSE ---
PT NOTE: PATIENT PARENT CALLED TO CHECK ON HER, PARENTS ARE OUT OF TOWN UNTIL FRIDAY AND WILL MAKE CONTACT WHEN THEY GET HOME.
[2019-12-29 16:34] LABS: Glucose Point of Care 77 mg/dL (70-110)
--- NOTE | 2019-12-29 16:39 | PC.NURSE ---
PT. NOTE: SITTER ORDER DISCONTINUED @ 1030 PER PHYSICIAN ORDER.
[2019-12-30 06:00] VITALS: BP 137/83; PULSE 82; RESP 18; TEMP 36.8; O2SAT 97
[2019-12-30] MEDS: hyDROXYzine 25 mg Capsule 50 MG PO (06:25)
--- NOTE | 2019-12-30 06:27 | PC.NURSE ---
Hydroxyzine given to pt per request for anxiety
[2019-12-30] MEDS: levothyroxine 25 mcg Tablet PO (08:39)
[2019-12-30] MEDS: topiramate 100 mg Tablet PO (08:39)
[2019-12-30] MEDS: acetaminophen 325 mg Tablet 650 MG PO (08:39)
[2019-12-30] MEDS: levothyroxine 112 mcg Tablet PO (08:39)
[2019-12-30 13:14] VITALS: BP 146/88; PULSE 87; RESP 18; TEMP 37.3; O2SAT 97
--- NOTE | 2019-12-30 14:45 | P.PN_ITS ---
Subjective NPU Subjective: Interval history: Christines parents reached out to us and we were able to get some collateral information which was very helpful. She continues to be quite resistant to the idea of making some changes in her medication. We discussed different medications along with the risks, benefits, and alternatives, but she continues to be resistant to a trial of medication. Also, there is a part of her that feels like her parents are coming tomorrow and that she will just leave but, unfortunately, I explained that she is on a 96-hour hold, and she certainly does not appear to be ready without any medication coverage. Mental Status Exam MSE Comments: This is a morbidly obese, white female, with adequate dress, grooming, and improved eye contact. No abnormal movements except for psychomotor retardation. More cooperative with exam than yesterday, in no acute distress. Speech was more spontaneous and decreased rate and volume. Mood described as okay; affect slightly subdued. Thought process, more organized. Thought content: patient denied any suicidal or homicidal ideation, there were no delusions reported or noted, she denied any auditory or visual hallucinations. Attention and concentration appeared intact, and memory was more reliable, but none were formally tested. She is alert and oriented times person and place. Insight and judgment are impaired. Vitals/I&O/Wt Last Vital Signs Temp 98.8 F 12/30/19 20:57 Pulse 81 12/30/19 20:57 Resp 18 12/30/19 20:57 BP 127/79 12/30/19 20:57 Pulse Ox 98 12/30/19 20:57 Data NPU : 12/28/19 22:30 12/28/19 22:30 Micro: Microbiology 12/28/19 23:50 Urine Culture - Preliminary Urine,Clean Catch Microbiology 12/28/19 23:50 Urine,Clean Catch Urine Culture - Preliminary A&P Additional A&P Information (1) Acute psychosis: This is a 44 year old, white female, who presented on a 96-hour hold secondary to concerns for lethality and depression, who presents uncooperative with the evaluation but has been seen tearful by the staff. Continue current medication, except: Will continue to discuss possible medication changes or additions with the patient. Encourage individual and milieu therapy. Continue q-15 minute checks for safety. Will work with social work team to get collateral information on her case. (2) Bipolar 1 disorder, depressed: (3) Anxiety with depression: Involuntary Hold Information 96 Hour Hold: 96 Hour Involuntary Admission: Yes 96 Hour Hold Ending Date: 01/04/20 96 Hour Hold Ending Time: 01:15 Attestations NPU 2 Medical Necessity Statement*: Inpatient hospitalization is medically necessary and the clinically appropriate intervention at this time. We will monitor medic ations and make changes as indicated. Likely length of stay is 2-4 days. Coding Level of Care Code Acute Barrel Charrer for Snehal Hyde
[2019-12-30 20:57] VITALS: BP 127/79; PULSE 81; RESP 18; TEMP 37.1; O2SAT 98
[2019-12-31] MEDS: hyDROXYzine 25 mg Capsule 50 MG PO (04:09)
[2019-12-31 06:00] VITALS: BP 143/88; PULSE 73; RESP 17; TEMP 36.3; O2SAT 97
[2019-12-31] MEDS: levothyroxine 25 mcg Tablet PO (09:03)
[2019-12-31] MEDS: levothyroxine 112 mcg Tablet PO (09:03)
[2019-12-31] MEDS: topiramate 100 mg Tablet PO (09:03)
[2019-12-31] MEDS: acetaminophen 325 mg Tablet 650 MG PO (09:04)
[2019-12-31 13:10] VITALS: BP 113/73; PULSE 70; RESP 18; TEMP 36.6; O2SAT 97
--- NOTE | 2019-12-31 17:17 | P.PN_ITS ---
Subjective NPU Subjective: Interval history: The patient presents today still resistant to taking medication, but excited about the fact that her parents should be arriving any moment now. After some significant verbal wrestling, she was able to accept my concern about her being discharged without significant antipsychotic/mood stabilizer on board so that she can continue to be well, as her parents try to help her navigate her circumstances. She was agreeable to starting Invega. After discussing the risks, benefits, and alternatives, she understood and agreed to proceed as is documented in this note. Mental Status Exam MSE Comments: This is a morbidly obese, white female, with adequate dress, grooming, and eye contact. No abnormal movements except for psychomotor retardation. Mostly cooperative with exam in no acute distress. Speech was decreased rate and volume. Mood described as okay; affect subdued and odd. Thought process, mostly organized. Thought content: patient denied any suicidal or homicidal ideation, there were no delusions reported or noted, patient denied any auditory or visual hallucinations. Attention, concentration, and memory appeared intact but were not formally tested. Alert and oriented times three. Insight and judgment are limited. Vitals/I&O/Wt Last Vital Signs Temp 97.7 F 12/31/19 21:34 Pulse 76 12/31/19 21:34 Resp 19 H 12/31/19 21:34 BP 154/84 12/31/19 21:34 Pulse Ox 97 12/31/19 21:34 Data NPU : 12/28/19 22:30 12/28/19 22:30 Micro: Microbiology 12/28/19 23:50 Urine Culture - Final Urine,Clean Catch Microbiology 12/28/19 23:50 Urine,Clean Catch Urine Culture - Final A&P Additional A&P Information (1) Acute psychosis: This is a 44 year old, white female, who presented on a 96-hour hold secondary to concerns for lethality and depression, who presents more cooperati ve with treatment more open to medication trial. Continue current medication, except: Start Invega 3mg now and 6mg po qam thereafter Will continue to discuss possible medication changes or additions with the patient. Encourage individual and milieu therapy. Continue q-15 minute checks for safety. (2) Bipolar 1 disorder, depressed: (3) Anxiety with depression: Involuntary Hold Information 96 Hour Hold: 96 Hour Involuntary Admission: Yes 96 Hour Hold Ending Date: 01/04/20 96 Hour Hold Ending Time: 01:15 Attestations NPU Medical Necessity Statement*: Inpatient hospitalization is medically necessary and the clinically appropriate intervention at this time. We will monitor medications and make changes as indicated. Likely length of stay is 2-4 days. Coding Level of Care Code Acute Director Financial Planning for Snehal Hyde
[2019-12-31] MEDS: paliperidone ER 3 mg Tablet PO (17:34)
[2019-12-31 21:34] VITALS: BP 154/84; PULSE 76; RESP 19; TEMP 36.5; O2SAT 97
[2020-01-01 06:00] VITALS: BP 125/74; PULSE 74; RESP 18; TEMP 37.1; O2SAT 97
[2020-01-01] MEDS: topiramate 100 mg Tablet PO (08:30)
[2020-01-01] MEDS: levothyroxine 112 mcg Tablet PO (08:30)
[2020-01-01] MEDS: levothyroxine 25 mcg Tablet PO (08:30)
[2020-01-01] MEDS: paliperidone ER 6 mg Tablet PO (08:30)
[2020-01-01 14:00] VITALS: BP 127/81; PULSE 110; RESP 18
[2020-01-01 15:26] LABS: Add Urine Microscopic? YES; Bilirubin Urine Neg (NEGATIVE); Blood Urine 2+ (Negative); Glucose Urine UA Norm (Normal); Ketones Urine 1+ (Negative); Leukocyte Esterase Urine 2+ (Negative); Nitrate Urine Negative (Negative); Protein Urine Trace (Negative); Specific Gravity, Urine 1.015 (1.005-1.030); Urine Appearance Cloudy (CLEAR); Urine Color Yellow (Yellow); Urobilinogen Urine Norm (Negative); pH Urine 7 (5-7)
[2020-01-01 15:27] LABS: Amorphous Sediment Urine 1+; Bacteria Urine 2+; Mucus Urine 1+; Squamous Epithelial Cell Urine 25-40 (0-5); Trichomonas Urine TRACE; WBC Urine 15-25 /hpf (0-5)
[2020-01-01 15:28] LABS: Add Urine Culture? No
--- NOTE | 2020-01-01 15:33 | PC.NURSE ---
PLACED A CALL TO AFTER RECEIVING URINE LAB RESULTS ON PT. AWAITING RETURN CALL.
--- NOTE | 2020-01-01 17:00 | PC.NURSE ---
CREATIVE ART THERAPIST PLACED A CALL AGAIN TO UPDATE DR ON UA RESULTS.
--- NOTE | 2020-01-01 19:33 | P.PN_ITS ---
Subjective NPU Subjective: Interval history: The patient presents today reporting that she has been struggling with urinary incontinence. We reviewed her labs from admission and the consensus of the previous doctor was that the findings represented contamination. We agreed that we would do an additional urinalysis given this new symptom. When the results came back, it indicated that she likely had urinary tract infection. She was quick to note that she does have some allergies to medications so that was taken into consideration. She is saying the medication seems like it is helping. She is hopeful that she will be well enough to leave in the next couple of days given that her parents are in town and they cannot visit her secondary to COVID. Mental Status Exam MSE Comments: This is a morbidly obese, white female, with adequate dress, grooming, and improved eye contact. No abnormal movements except for psychomotor retardation. Cooperative with exam in no acute distress. Speech was normal rate, decreased volume. Mood described as a little better; affect still subdued and slightly odd. Thought process, organized. Thought content: patient denied any suicidal or homicidal ideation, there were no delusions reported or noted, patient denied any auditory or visual hallucinations. Attention, concentration, and memory appeared intact but were not formally tested. Alert and oriented buffy es three. Insight and judgment are limited but improving. Vitals/I&O/Wt Last Vital Signs Temp 98.7 F 01/01/20 06:00 Pulse 110 H 01/01/20 14:00 Resp 18 01/01/20 14:00 BP 127/81 01/01/20 14:00 Pulse Ox 97 01/01/20 06:00 Data NPU : 12/28/19 22:30 12/28/19 22:30 A&P Additional A&P Information (1) Acute psychosis: This is a 44 year old, white female, who presented on a 96-hour hold secondary to concerns for lethality and depression, who presents more cooperative with treatment more open to medication trial. Continue current medication. Will continue to discuss possible medication changes or additions with the patient. Encourage individual and milieu therapy. Continue q-15 minute checks for safety. Recheck urinalysis and treat appropriately with an antibiotic if indicated. (2) Bipolar 1 disorder, depressed: (3) Anxiety with depression: Involuntary Hold Information 96 Hour Hold: 96 Hour Involuntary Admission: Yes 96 Hour Hold Ending Date: 01/04/20 96 Hour Hold Ending Time: 01:15 Attestations NPU Medical Necessity Statement*: Inpatient hospitalization is medically necessary and the clinically appropriate intervention at this time. We will monitor medications and make changes as indicated. Likely length of stay is 1-3 days. Coding Level of Care Code Acute Salesperson [employer] for Snehal Hyde
[2020-01-01 22:00] VITALS: BP 124/85; PULSE 100; RESP 18; TEMP 37.1; O2SAT 97
[2020-01-02 06:00] VITALS: BP 129/79; PULSE 95; RESP 18; TEMP 36.9; O2SAT 97
[2020-01-02] MEDS: cefUROXime 250 mg Tablet PO ×2 (08:40→17:21)
[2020-01-02] MEDS: levothyroxine 112 mcg Tablet PO (08:41)
[2020-01-02] MEDS: topiramate 100 mg Tablet PO (08:41)
[2020-01-02] MEDS: paliperidone ER 6 mg Tablet PO (08:41)
[2020-01-02] MEDS: levothyroxine 25 mcg Tablet PO (08:41)
[2020-01-02 14:00] VITALS: BP 143/101; PULSE 98; RESP 18; TEMP 37.3
--- NOTE | 2020-01-02 16:30 | PM.NPN ---
Subjective NPU Subjective: Interval history: The patient presents today reporting that she is feeling better. She thinks that the medication is helping. She identifies that it is possible that some of her emotionality had to do with the fact that her period was coming and so she did start her period. She says she also feels better since the antibiotic was started for the likely UTI. She reports that her parents are in town and she looks forward to seeing them. We talked about the possibility of discharge tomorrow if she continues to appear stable and she is going to have those supports in town. Mental Status Exam MSE Comments: This is a morbidly obese, white female, with adequate dress, grooming, and eye contact. No abnormal movements except for improving mild psychomotor retardation. Cooperative with exam in no acute distress. Speech was more normal rate and volume. Mood described as better; affect congruent. Thought process, organized. Thought content: patient denied any suicidal or homicidal ideation, there were no delusions reported or noted, patient denied any auditory or visual hallucinations. Attention, concentration, and memory appeared intact but were not formally tested. Alert and oriented times three. Insight and judgment are improving. Vitals/I&O/Wt Last Vital Signs Temp 99.1 F 01/02/20 14:00 Pulse 98 01/02/20 14:00 Resp 18 01/02/20 14:00 BP 143/101 01/02/20 14:00 Pulse Ox 97 01/02/20 06:00 Weight last 48 hrs Weight 119.476 kg Data NPU : 12/28/19 22:30 12/28/19 22:30 A&P Additional A&P Information (1) Acute psychosis: This is a 44 year old, white female, who presented on a 96-hour hold secondary to concerns for lethality and depression, who presents more cooperative with treatment more open to medication trial. Continue current medication. Will continue to discuss possible medication changes or additions with the patient. Encourage individual and milieu therapy. Continue q-15 minute checks for safety. Continue ceftin for UTI (2) Bipolar 1 disorder, depressed: (3) Anxiety with depression: Involuntary Hold Information 96 Hour Hold: 96 Hour Involuntary Admission: Yes 96 Hour Hold Ending Date: 01/04/20 96 Hour Hold Ending Time: 01:15 Attestations NPU Medical Necessity Statement*: Inpatient hospitalization is medically necessary and the clinically appropriate intervention at this time. We will monitor medications and make changes as indicated. Likely length of stay is 1-3 days. Possible discharge tomorrow. Coding Level of Care Code Acute Wash Plant Operator for Snehal Hyde
[2020-01-02] MEDS: acetaminophen 325 mg Tablet 650 MG PO (17:21)
[2020-01-02] MEDS: hyDROXYzine 25 mg Capsule 50 MG PO (20:28)
[2020-01-02 22:00] VITALS: BP 125/80; PULSE 95; RESP 18; TEMP 36.6; O2SAT 98
[2020-01-03] MEDS: levothyroxine 112 mcg Tablet PO (05:51)
[2020-01-03 06:00] VITALS: BP 111/70; PULSE 84; RESP 18; TEMP 36.6; O2SAT 99
[2020-01-03] MEDS: cefUROXime 250 mg Tablet PO (08:32)
[2020-01-03] MEDS: paliperidone ER 6 mg Tablet PO (08:32)
[2020-01-03] MEDS: topiramate 100 mg Tablet PO (08:33)
--- NOTE | 2020-01-03 11:59 | PC.SOCIAL ---
Important Medicare Message Reviewed page 2 Important Medicare Message with patient. Verbalized understanding and signed page 2, she reports she is ready to go home. Original to patient and copy in chart.
--- NOTE | 2020-01-03 12:32 | PM.NDC ---
Diagnoses at Discharge Discharge Diagnosis (1) Acute psychosis: Status: Acute (2) Bipolar 1 disorder, depressed: Status: Acute (3) Anxiety with depression: Status: Acute Reason for Visit Reason for Visit: Reason For Visit: confusion Brief History: History of Present Illness Jonna Zaidi is a 44 year old female who presents today very resistant to the interview. She was not interested in having a conversation or allowing this verse writer to give a full evaluative process. We discussed the purpose of her visit, and she very clearly, adamantly, and angrily communicated that she brought herself here. However, we acknowledged that she is on a 96-hour hold and people have filled out affidavits. She endorsed that she needed to go home, and this verse writer acknowledged to her that her one vehicle to go home was for her to talk with me and explain the circumstances that brought her here. I offered to her that I would be very open minded and open to the possibility of this being a quick process if the information moves us in that direction, however, she was not willing to engage in the conversation. I asked if she was interested in initiating some medication to help with whatever symptoms led to her bringing herself here, and she was resistant and rejected that approach. Hospital Course Hospital Course Jonna presented to the emergency room with altered mental status and significant confusion not on significant medication to manage her reported and historically verified bipolar disorder. According to her parents received a call from her excited about telling them that she is which is a common way that her decompensations began. She was continued on her home medications but Invega was initiated and ultimately she accepted the first Invega Sustenna injection. She was scheduled to get the second injection on day 8 and her parents had come into town to make sure she was safe and stable while the medications are taking effect. She had a fairly marked response to the medication with significant improvement in multiple facets including ability to have a conversation. During the hospitalization she had routine laboratory studies which were within normal limits except for a few outliers. Additionally she had general medical evaluation which was also within normal limits and revealed no new acute processes. Discharge Summary At the time of discharge, she denied any lethality and was absent psychosis. Mood and anxiety were well managed and she endorsed a plan to avoid all drugs of abuse, and follow-up with the recommended post hospital services. She was evaluated and deemed to be absent credible lethality and had received the maximum benefit from an inpatient hospitalization, so was discharged. Involuntary Hold Information 96 Hour Hold: 96 Hour Involuntary Admission: Yes 96 Hour Hold Ending Date: 01/04/20 96 Hour Hold Ending Time: 01:15 Mental Status Exam MSE Comments: This is a morbidly obese, white female, with adequate dress, grooming, and eye contact. No abnormal movements except for improving mild psychomotor retardation. Cooperative with exam in no acute distress. Speech was more normal rate and volume. Mood described as much better; affect congruent. Thought process, organized. Thought content: patient denied any suicidal or homicidal ideation, there were no delusions reported or noted, patient denied any auditory or visual hallucinations. Attention, concentration, and memory appeared intact but were not formally tested. Alert and oriented times three. Insight and judgment are improving. Discharge Data Data Completed and Pending: Completed Studies During Hospitalization Category Date Time Status CT head wo con* 7 0450 Urgent Cat Scan 12/28/19 21:50 Completed XR chest 1V milind ble [id number] Urgent Exams 12/28/19 21:50 Completed Vitals: Last Vital Signs Temp 97.9 F 01/03/20 06:00 Pulse 84 01/03/20 06:00 Resp 18 01/03/20 06:00 BP 111/70 01/03/20 06:00 Pulse Ox 99 01/03/20 06:00 Discharge Plan Discharge Patient Disposition: Home, Self-Care Condition: Stable Prescriptions: New cefuroxime axetil 250 mg Tablet 250 mg PO BID 4 Days Qty: 8 RF: 0 benztropine 1 mg Tablet 1 mg PO BID 30 Days Qty: 60 RF: 1 Invega Sustenna 156 mg/mL syringe 156 mg IM Q30D Qty: 1 RF: 1 Continued Excedrin Extra Strength 250-250-65 mg tablet 2 tab PO DAILY PRNRF: 0 metformin 500 mg tablet extended release 24 hr 500 mg PO DAILY RF: 0 topiramate [Topamax] 100 mg tablet 100 mg PO DAILY Qty: 30 RF: 5 Maxalt-ELECTRONICS RESEARCH ENGINEER 10 mg tablet,disintegrating See Rx Instructions .ROUTE .COMPLEX MDD 3 tablets PRN (Reason: Migraine Headache) RF: 0 bupropion HCl 150 mg tablet extended release 24 hr 150 mg PO QAM 30 Days Qty: 30 RF: 1 levothyroxine 137 mcg capsule 137 mcg PO DAILY 30 Days Qty: 30 RF: 1 No Action hydrocodone-acetaminophen 5-325 mg tablet 1 tab PO Q6H PRN (Reason: pain) Qty: 15 RF: 0 Discharge Orders: Discharge Order (Routine); Ordered 01/03/20 Ordered By: Dewayne Puga Referrals: [facility] [Outside] - 1-3 days (Paperwork will be filled out with you while you are at the hospital. You will then be contacted by phone for an assessment. This will be done over the phone due to COVID-19 restrictions. They will likely call on 01/04/20.) Susan Florian MD [Physician] - 02/28/20 3:00 pm (Follow up) Randi Raza FNP [Primary Care Provider] - 01/19/20 1:00 pm (Follow up) Sharon Jenkins DO [Physician] - 01/10/20 2:30 pm (Follow up to the [facility] for your booster Invega Sustenna injection 156mg. Randi Raza is out of the office next week so your booster injection will be given at Dr. Jenkins's office. You will need the booster injection on 01/10/20, then be scheduled 30 days later for the next months injection, 02/02/20. The medication will be called to your pharamcy. You will need to picking table worker prior to your appointment time and bring it with you.) Discharge Diet: Regular Discharge Activity: Resume usual activity Patient Instructions: Cefuroxime (By mouth), Benztropine Mesylate (By mouth), Paliperidone (Injection), Bipolar Disorder (DC), Brief Psychotic Disorder (DC) Discharge Date/Time: 01/03/20 15:08 Discharge Attestations NPU Time Spent in Discharge Care*: less than 30 min Specific Discharge Activities: Specific discharge activities: educating patient, discussing with case packer and sealer/social workers/dc planners, documenting/other paperwork and evaluating patient/reviewing data Coding Level of Care Code Acute 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
[2020-01-03 13:16] VITALS: BP 111/70; RESP 18; TEMP 36.6; O2SAT 99
[2020-01-03] MEDS: paliperidone palmitate 234 mg Syringe IM (13:18)
== END 2020-01-03 15:08 | disposition home or self-care (01) | DRG 885 ==
LOC: ER 12-29 02:09 → NP 12-29 02:24
PROVIDERS: Emergency Medicine; Hospitalist; Admitting Provider Psychiatry & Neurology Psychiatry; Emergency Provider Emergency Medicine; PCP Nurse Practitioner; Visit Provider Psychiatry & Neurology Psychiatry
DX: F23 Brief psychotic disorder (principal); Z68.42 Body mass index [BMI] 45.0-49.9, adult; E03.9 Hypothyroidism, unspecified; K58.9 Irritable bowel syndrome, unspecified; E66.9 Obesity, unspecified; F31.9 Bipolar disorder, unspecified; F41.8 Other specified anxiety disorders
CPT/HCPCS: 12345; 36415; 36416; 36600; 70450; 71045; 80053; 80156; 80164; 80178; 80185; 80306; 80307; 81001; 81025; 82009; 82803; 82962; 83735; 84443; 84484; 84702; 85025; 87086; 93005; 96372; 99285; J1630; J2060; J7030

== ENCOUNTER 2020-01-04 08:37 | Emergency (ER) | payer MEDICARE, MEDICAID, SELFPAY ==
[2020-01-04] VITALS (20 sets, daily range): BP systolic 113–167; BP diastolic 68–106; PULSE 76–104; RESP 14–20; TEMP 36.6; O2SAT 91–100; BMI 48.4
--- NOTE | 2020-01-04 08:46 | CT_ITS ---
WS: [id number] CT HEAD NONCONTRAST HISTORY: fall TECHNIQUE: Contiguous axial imaging performed through the brain in 2.5 mm imaging. Bone and soft tiss ue windows. Sagittal and coronal reformats reviewed. All CT scans at [facility] use at ast one of these dose optimization techniques: automated exposure control; mA and/or kV adjustment pe r patient size (includes targeted exams where dose is matched to clinical indication); or iterative r econstruction. DLP: 783.23 mGy.cm COMPARISON: 12/28/2019 Significant motion artifact through the skull base and posterior fossa secondary to body habitus. No acute intracranial hemorrhage, midline shift or mass effect. No atrophy or prior infarcts or herniation. Ventricles: Normal size with no hydrocephalus. No inferior displacement of the cerebellar tonsils. Paranasal sinuses: As visualized are clear. Mastoid air cells: Well pneumatized. Calvarium and scalp: No skull fracture. Small soft tissue hematoma centered over the mid frontal brandan on. CT/CT head wo con* [id number] IMPRESSION: 1. No acute intracranial hemorrhage or edema. 2. Stable noncontrast head CT since 12/28/2019. 3. Small frontal scalp hematoma.
--- NOTE | 2020-01-04 08:47 | XR_ITS ---
WS: [id number] RIGHT SHOULDER: 3 VIEW(S) TECHNIQUE: Internal and external rotation with Y view. HISTORY: fall COMPARISON: None available. Anterior shoulder displacement. Humeral head is inferior to the glenoid. No fracture identified in th is examination. Bone detail is obscured by patient's body habitus. XR/XR shoulder RT min 2V* [id number] IMPRESSION: Anterior RIGHT shoulder dislocation.
--- NOTE | 2020-01-04 08:49 | ED_ITS ---
HPI - Fall General: Chief Complaint: Fall Stated Complaint: FALL WITH RT SHOULDER PAIN, ABRASION FOREHEAD Time Seen by Provider: 01/04/20 08:38 Review of Systems General: Reports: 10 or more systems reviewed and unremarkable except in HPI and below Musc: Reports: extremity pain, joint pain and limited range of motion PFSH ED PFSH: Medical History Endometriosis Hypothyroidism IBS (irritable bowel syndrome) Migraine Surgical History S/P appendectomy S/P cholecystectomy S/P endometrial ablation S/P foot surgery S/P sinus surgery S/P tonsillectomy Family History Grandmother Dementia Stroke Cancer Mother Hypertension Father Hypertension Grandfather Diabetes Social History Smoking and tobacco status: current every day smoker cigarettes Alcohol intake: current Alcohol intake frequency: holidays/special occasions only History of recent travel: No Female Reproductive History: Date of last menstrual period: 12/01/19 Physical Exam HENMT: COMMON NORMALS: normocephalic HEAD & SCALP: normocephalic and abrasion (right eyebrow) Extremity: RIGHT UPPER EXTREMITY: Yes shoulder joint (ttp) Procedures Orthopedic Joint Reduction Joint #1: Side: right Joint Reduction Location: shoulder Analgesia: procedural sedation Shoulder Technique Used (if applicable): traction/counter-traction Technique used: traction/counter-traction Post-reduction neuro exam: intact Post-reduction vascular: intact Post Reduction X-Ray Obtained: Yes Post Reduction X-Ray Results: reduced Splint Applied: Yes Patient Tolerated Procedure: well Course Vital Signs: Vital signs: Vital Signs Temperature 97.8 F 01/04/20 08:40 Pulse Rate 89 01/04/20 11:38 Respiratory Rate 18 01/04/20 11:38 Blood Pressure 140/68 01/04/20 11:38 Pulse Oximetry 97 01/04/20 11:38 MDM - Fall MDM Narrative: Medical decision making narrative: Anterior dislocation of the right shoulder without fractures Lab Data: Labs: Lab Results 04/28/20 04/28/20 04/28/20 Range/Units 10:08 10:08 10:08 WBC 15.0 H (4.0-10.0) 10^3/ uL RBC 4.36 (4.1-5.3) 10^6/u L Hgb 13.3 (11.5-15.3) g/dL Hct 42.0 (37.0-47.0) % MCV 96.3 (81-99) fL MCH 30.5 (28.0-34.0) pg MCHC 31.7 (30.0-36.0) g/dL RDW 13.9 (12.1-15.1) % Plt Count 256 (130-400) 10^3/c mm MPV 11.5 H (7.4-10.4) fL Neut % (Auto) 81.7 % Lymph % (Auto) 11.1 % Larimer % (Auto) 6.3 % Eos % (Auto) 0.2 % Baso % (Auto) 0.2 % Neut # (Auto) 12.2 H (1.8-7.7) 10^3/u L Lymph # (Auto) 1.7 (0.8-4.8) 10^3/u L Larimer # (Auto) 1.0 H (0.2-0.9) 10^3/u L Eos # (Auto) 0.0 (0.0-0.8) 10^3/u L Baso # (Auto) 0.0 (0.0-0.1) 10^3/u L Nucleated RBC % (a uto) 0 % Nucleated RBCs # 0.0 /100WBC Sodium 136 (136-145) mmol/L Potassium 3.9 (3.5-5.1) mmol/L Chloride 100 (98-107) mmol/L Carbon Dioxide 21 L (22-29) mmol/L Anion Gap 18.9 (5-19) BUN 15 (6-20) mg/dL Creatinine 0.8 (0.5-0.9) mg/dL GFR Calculation 77.2 L (90-130) mL/min Glucose 158 H (65-115) mg/dL Calculated Osmolal ity 282 L (285-295) mOsm/k g Lactate 2.4 H (0.5-2.2) mmol/L Calcium 9.3 (8.5-10.5) mg/dL Total Bilirubin 0.2 (0.15-1.2) mg/dL AST 27 (0-32) U/L ALT 34 H (0-33) U/L Alkaline Phosphata se 67 (35-105) IU/L Total Protein 7.3 (6.6-8.7) g/dL Albumin 3.7 (3.5-5.2) g/dL Globulin 3.6 (1.3-4.6) g/dL Discharge Plan Discharge Patient Disposition: Home, Self-Care Clinical Impression: Fall Qualifiers: Encounter type: initial encounter Qualified Code(s): W19.XXXA - Unspecified fall, initial encounter Anterior shoulder dislocation Qualifiers: Encounter type: initial encounter Laterality: right Qualified Code(s): S43.014A - Anterior dislocation of right humerus, initial encounter Fracture of head of humerus Qualifiers: Encounter type: initial encounter Fracture type: closed Laterality: right Qualified Code(s): S42.291A - Other displaced fracture of upper end of right humerus, initial encounter for closed fracture Condition: Stable Prescriptions: New hydrocodone-acetaminophen 5-325 mg tablet 1 tab PO Q6H PRN (Reason: pain) Qty: 15 RF: 0 No Action Excedrin Extra Strength 250-250-65 mg tablet 2 tab PO DAILY PRNRF: 0 metformin 500 mg tablet extended release 24 hr 500 mg PO DAILY RF: 0 topiramate [Topamax] 100 mg tablet 100 mg PO DAILY Qty: 30 RF: 5 Maxalt-SOCIAL SCIENCES LECTURER 10 mg tablet,disintegrating See Rx Instructions .ROUTE .COMPLEX MDD 3 tablets PRN (Reason: Migraine Headache) RF: 0 cefuroxime axetil 250 mg Tablet 250 mg PO BID 4 Days Qty: 8 RF: 0 benztropine 1 mg Tablet 1 mg PO BID 30 Days Qty: 60 RF: 1 Invega Sustenna 156 mg/mL syringe 156 mg IM Q30D Qty: 1 RF: 1 bupropion HCl 150 mg tablet extended release 24 hr 150 mg PO QAM 30 Days Qty: 30 RF: 1 levothyroxine 137 mcg capsule 137 mcg PO DAILY 30 Days Qty: 30 RF: 1 Referrals: Randi Raza, HIRA [Primary Care Provider] - Coding Level of Care Code ED Medical Donation Professional for Chg Fwd Exam Expanded Problem Focused
[2020-01-04] MEDS: morphine 4 mg/mL SDV 1 mL IM (08:53)
[2020-01-04] MEDS: ondansetron 4 MG Tablet PO (08:53)
--- NOTE | 2020-01-04 09:28 | PC.NURSE ---
RN called to CT for seizure like activity. Upon arrival pt was shaking her upper body, was awake and could fully answer questions and had not post ictal phase.
[2020-01-04] MEDS: fentaNYL 50 mcg/mL INJ 2mL 100 MCG IVP (09:59)
[2020-01-04 10:15] LABS: Basophils % 0.2 %; Eosinophils % 0.2 %; Hemoglobin 13.3 g/dL (11.5-15.3); Lymphocytes # 1.7 10^3/uL (0.8-4.8); Lymphocytes % 11.1 %; Mean Corpuscular HGB Conc 31.7 g/dL (30.0-36.0); Mean Corpuscular Hemoglobin 30.5 pg (28.0-34.0); Mean Corpuscular Volume 96.3 fL (81-99); Mean Platelet Volume 11.5 fL (7.4-10.4); Monocytes % 6.3 %; Neutrophils # 12.2 10^3/uL (1.8-7.7); Neutrophils % 81.7 %; Nucleated Red Blood Cells % 0 %; Platelet Count 256 10^3/cmm (130-400); Red Blood Count 4.36 10^6/uL (4.1-5.3); Red Cell Distribution Width 13.9 % (12.1-15.1)
[2020-01-04] MEDS: midazolam 1 mg/mL INJ 2 mL 4 MG IVP (10:20)
--- NOTE | 2020-01-04 10:41 | XR_ITS ---
WS: [id number] RIGHT SHOULDER: 1 VIEW(S) TECHNIQUE: AP view. HISTORY: POST REDUCTION COMPARISON: 01/04/2020. Anterior dislocation has been reduced. Humeral head now overlies the glenoid. Multiple small bony fra gments in the posterior lateral humeral head from a Hill-Sachs deformity. There are additional tiny d ensities in the glenohumeral joint space. There is a lucency extending through the radial head and ne ck. Double lucency involving the superior humeral head from an impaction fracture. No glenoid fractur e appreciated. XR/XR shoulder RT 1V [id number] IMPRESSION: 1. Satisfactory postreduction imaging. Humeral head appears appropriately posi tioned within the glenoid. 2. Multiple avulsion fractures and fragmentation involving the humeral head. A dditional impacted fracture involving the humeral head and possible linear frac ture through the humeral head. Follow-up CT evaluation may be necessary to eval uate extent of the fractures and evaluate the glenoid.
[2020-01-04 10:53] LABS: Alanine Aminotransferase 34 U/L (0-33); Albumin Level 3.7 g/dL (3.5-5.2); Alkaline Phosphatase 67 IU/L (35-105); Anion Gap 18.9 (5-19); Blood Urea Nitrogen 15 mg/dL (6-20); Calcium 9.3 mg/dL (8.5-10.5); Carbon Dioxide 21 mmol/L (22-29); Chloride 100 mmol/L (98-107); Globulin 3.6 g/dL (1.3-4.6); Glomerular Filtration Rate 77.2 mL/min (90-130); Glucose 158 mg/dL (65-115); Lactate (Lactic Acid level) 2.4 mmol/L (0.5-2.2); Osmolality Calculated 282 mOsm/kg (285-295); Potassium 3.9 mmol/L (3.5-5.1); Sodium 136 mmol/L (136-145); Total Bilirubin 0.2 mg/dL (0.15-1.2); Total Protein 7.3 g/dL (6.6-8.7)
[2020-01-04 11:03] LABS: Aspartate Amino Transferase 27 U/L (0-32)
--- NOTE | 2020-01-04 11:38 | PC.NURSE ---
Pt is awake, alert and oriented.
--- NOTE | 2020-01-04 11:45 | CT_ITS ---
WS: [id number] CT RIGHT SHOULDER, NONCONTRAST HISTORY: fx/dislocation Technique: All CT scans at [facility] use at least one of these dose optimization techniq ues: automated exposure control; mA and/or kV adjustment per patient size (includes targeted exams wh ere dose is matched to clinical indication); or iterative reconstruction. DLP: 2274.66 mGy.cm COMPARISON: Shoulder radiograph 01/04/2020. Multiple comminuted fractures involving the humeral head. Avulsion of the greater tuberosity. Fractur e line extends through the hand humeral head. Fracture does not appear to extend into the neck or pro ximal humerus. There are multiple tiny avulsion fractures along the superior and lateral humeral head . Mild impaction along the fracture site. There is mild impaction and concave defect on the posterior superior humeral head. No glenoid fractur e is appreciated. Soft tissue edema around the shoulder. AC joint remains normal. CT/CT shoulder RT wo con* [id number] IMPRESSION: 1. Multiple avulsion fractures surrounding the humeral head with avulsion of t he greater tuberosity and a Hill-Sachs deformity. 2. No glenoid fracture appreciated.
--- NOTE | 2020-01-04 12:43 | PC.NURSE ---
Pt given water to drink per ED Physician approval. No other needs at this time.
--- NOTE | 2020-01-04 12:53 | PC.NURSE ---
Pt transported to CT via veterinary surgery technician.
--- NOTE | 2020-01-04 13:10 | PC.NURSE ---
Pt returned from CT.
--- NOTE | 2020-01-04 15:57 | DCPLANNER ---
community affairs manager was asked to schedule a follow up appointment for patient with ortho. community affairs manager called the ortho clinic, spoke with Mandy, gave clinic patients information. community affairs manager was told that patients information would be printed and reviewed. Clinic will call housing case manager and patient with appointment information.
--- NOTE | 2020-01-07 12:04 | DCPLANNER ---
Patient has a follow up appointment scheduled for Saturday, January 11, 2020 at 10:15 with Margarito. Clinic will call patient with appointment information.
--- NOTE | 2020-01-25 14:58 | DCPLANNER ---
Patient did attend appointment scheduled for 01.11.20 with ortho.
== END 2020-01-04 13:47 | disposition home or self-care (01) ==
PROVIDERS: Emergency Provider Family Medicine; PCP Nurse Practitioner
DX: S43.014A Anterior dislocation of right humerus, initial encounter (principal); S42.201A Unspecified fracture of upper end of right humerus, initial encounter for closed fracture; W19.XXXA Unspecified fall, initial encounter; E03.9 Hypothyroidism, unspecified; F17.210 Nicotine dependence, cigarettes, uncomplicated
CPT/HCPCS: 12345; 23650; 70450; 73020; 73030; 73200; 80053; 83605; 85025; 96372; 96374; 96375; 99283; 99284; J2250; J2270; J3010; J3490; Q0162

== ENCOUNTER → 2020-01-11 12:01 | Outpatient (BNVA) | payer MEDICARE, MEDICAID, SELFPAY | PROVIDERS: PCP Nurse Practitioner; Visit Provider Orthopaedic Surgery | DX: S42.251A Displaced fracture of greater tuberosity of right humerus, initial encounter for closed fracture (principal) | CPT/HCPCS: 73030 ==

== ENCOUNTER 2020-01-15 11:43 | Emergency (ER) | payer MEDICARE, MEDICAID, SELFPAY ==
[2020-01-15 11:49] VITALS: BP 155/93; PULSE 83; RESP 16; TEMP 36.8; O2SAT 98; BMI 48.4
--- NOTE | 2020-01-15 12:06 | W.ED.RECABL ---
HPI - Recheck/Abnormal Lab/Rx General: Chief Complaint: Recheck/Abnormal Lab/Rx Stated Complaint: WANTS PAIN MEDS Time Seen by Provider: 01/15/20 11:58 Source: patient Mode of arrival: ambulatory Limitations: no limitations History of Present Illness: HPI narrative: Patient is a 44-year-old female patient who recently sustained a right humeral fracture. She is scheduled for surgery on Friday, however she is out of her hydrocodone/acetaminophen pain medication. She was given a prescription for 10 tablets in addition was diagnosed with a fracture and has not followed up with her primary care for refill. She saw the orthopedic surgeon but did not ask for refill at the time. She has only 1 tablet left and does not think she can last on Friday. Review of Systems General: Reports: 10 or more systems reviewed and unremarkable except in HPI and below Const: Denies: fever, chills or body aches Card: Denies: palpitations, irregular heart rhythm, edema or swelling of feet/ankles Resp: Denies: shortness of breath, productive cough or non-productive cough GI: Denies: abdominal pain, nausea or vomiting : Denies: flank pain, difficulty urinating, painful urination, urinary frequency, urinary urgency or urinary hesitancy Musc: Denies: neck pain, back pain or extremity swelling Neuro: Denies: headache, numbness in extremities or weakness in extremities PFS ED PFSH: Social History Smoking and tobacco status: current every day smoker cigarettes Packs smoked per day: 0.25 Alcohol intake: current Alcohol intake frequency: holidays/special occasions only History of recent travel: No Current gender identity: Female Female Reproductive History: Date of last menstrual period: 12/01/19 Physical Exam Const: COMMON NORMALS: no apparent distress, average body habitus, oriented x3, no limitations, healthy appearing, alert and well nourished Neck/C-Spine: COMMON NORMALS: no meningeal signs and no JVD Resp: COMMON NORMALS: normal respiratory effort, no retractions, no use of accessory muscles, clear to auscultation bilaterally and percussion normal AUSCULTATION: clear to auscultation bilaterally PERCUSSION: percussion normal Cardio: COMMON NORMALS: no JVD, regular rate, regular rhythm, S1 normal heart sound, S2 normal heart sound, no gallops, no clicks, no murmurs, no rub and peripheral pulses 2+ throughout RATE: regular rate RHYTHM: regular rhythm HEART SOUNDS: S1 normal and S2 normal PERIPHERAL PULSES: pulses 2+ throughout : COMMON NORMALS: Yes no CVA tenderness BLADDER/KIDNEY EXAM: Yes no CVA tenderness Back/Pelvis: COMMON NORMALS: no CVA tenderness Extremity: COMMON NORMALS: normal to inspection, full ROM, normal capillary refill, no calf tenderness and no pedal edema OTHER: Right upper extremity in a sling Neuro: COMMON NORMALS: oriented x3 SENSORIUM/ORIENTATION: Yes alert MENINGEAL SIGNS: Yes no meningeal signs Skin: COMMON NORMALS: no rashes or lesions noted, no wounds, skin turgor normal, no jaundice, no petechiae and no mottling GENERAL SKIN EXAM: no rashes or lesions noted and turgor normal Course Vital Signs: Vital signs: Vital Signs Temperature 98.3 F 01/15/20 11:49 Pulse Rate 81 01/15/20 12:18 Respiratory Rate 18 01/15/20 12:18 Blood Pressure 147/105 01/15/20 12:18 Pulse Oximetry 98 01/15/20 12:18 MDM - Recheck/Abnormal Lab/Rx MDM Narrative: Medical decision making narrative: Patient with a fracture of the greater tuberosity of the right humerus who is scheduled for surgery on Friday. She is out of her pain medication and came here for refill. I think it is reasonable to give her a few tablets of pain medications that would last until Friday. She was given a prescription for 10 tablets of hydrocodone. Medical Records: Attestation: I reviewed the patient's medical records. Discharge Plan Discharge Patient Disposition: Home, Self-Care Clinical Impression: Closed fracture of greater tuberosity of right humerus Qualifiers: Encounter type: subsequent encounter Fracture alignment: displaced Fracture healing: with routine healing Qualified Code(s): S42.251D - Displaced fracture of greater tuberosity of right humerus, subsequent encounter for fracture with routine healing Condition: Stable Prescriptions: New hydrocodone-acetaminophen 5-325 mg tablet 1 tab PO Q8H PRN (Reason: frature of right humerus) Qty: 10 RF: 0 Continued Excedrin Extra Strength 250-250-65 mg tablet 2 tab PO DAILY PRN (Reason: Pain) RF: 0 topiramate [Topamax] 100 mg tablet 100 mg PO DAILY Qty: 30 RF: 5 rizatriptan [Maxalt-MANAGER SALES TRAINING] 10 mg tablet,disintegrating See Rx Instructions .ROUTE .COMPLEX MDD 3 tablets PRN (Reason: Migraine Headache) RF: 0 benztropine 1 mg Tablet 1 mg PO BID 30 Days Qty: 60 RF: 1 bupropion HCl 150 mg tablet extended release 24 hr 150 mg PO QAM 30 Days Qty: 30 RF: 1 levothyroxine 137 mcg capsule 137 mcg PO DAILY 30 Days Qty: 30 RF: 1 Vitamin D3 RF: 0 ergocalciferol (vitamin D2) 1,250 mcg (50,000 unit) capsule 50,000 unit PO DAILY RF: 0 Discontinued hydrocodone-acetaminophen 5-325 mg tablet 1 tab PO Q6H PRN (Reason: pain) 3 Days Qty: 10 RF: 0 Discharge Orders: Discharge Order (Routine); Ordered 01/15/20 Ordered By: Jonatan Manuel Referrals: Randi Raza FNP [Primary Care Provider] - Jun Pimentel MD [Physician] - 01/17/20 (as scheduled for surgery) Patient Instructions: Arm Fracture in Adults (ED) Activity Restrictions/Additional Instructions: Return for any new or worsening symptoms. Follow-up with the orthopedic surgeon on Friday for surgery as scheduled. Take the medication as needed for pain. Discharge Date/Time: 01/15/20 12:21 Coding Level of Care Code ED Delivery Truck Driver for Snehal Hyde
[2020-01-15 12:18] VITALS: BP 147/105; PULSE 81; RESP 18; O2SAT 98
== END 2020-01-15 12:21 | disposition home or self-care (01) ==
PROVIDERS: Emergency Provider Family Medicine; PCP Nurse Practitioner
DX: S42.251A Displaced fracture of greater tuberosity of right humerus, initial encounter for closed fracture (principal); X58.XXXA Exposure to other specified factors, initial encounter; F17.210 Nicotine dependence, cigarettes, uncomplicated
CPT/HCPCS: 12345; 99281; 99282

== ENCOUNTER 2020-01-17 10:17 | Day surgery (SDC) | payer MEDICARE, MEDICAID, SELFPAY ==
[2020-01-14 13:53] VITALS: BMI 48.4
[2020-01-17] VITALS (8 sets, daily range): BP systolic 149–179; BP diastolic 73–104; PULSE 61–80; RESP 12–24; TEMP 36.1–36.8; O2SAT 92–100
--- NOTE | 2020-01-17 | SCC_ITS ---
Procedure Done: Open reduction open reduction and internal fixation right humerus greater tuberosity 25.6 seconds of fluoroscopic guidance, for a cumulative dose of 5.18 mGy, was provided to Dr. Pimentel by the radiology department. C-arm images of the RIGHT shoulder were saved for the patient's permanent record. [facility]
--- NOTE | 2020-01-17 | XR_ITS ---
WS: [id number] C-ARM RADIOGRAPHS RIGHT SHOULDER; 3 IMAGES HISTORY: ORIF greater tuberosity proximal humerus COMPARISON: 01/11/2020 Intraoperative screw fixation of the greater tuberosity fracture. Normal position of the avulsion fra cture. XR/XR shoulder RT min 2V* [id number] IMPRESSION: Intraoperative screw fixation greater tuberosity fracture.
[2020-01-17 10:32] LABS: OR HCG Qualitative Urine Negative (Negative)
--- NOTE | 2020-01-17 10:32 | ANES.PREANE2 ---
Pre-Anesthetic Assessment Pre-Anesthetic Assessment: Height/Weight: Height 1.57 m Weight 120.202 kg Preop Diagnosis: Fracture right humerus greater tuberosity Proposed Procedure: Operation Date: 01/17/20 11:35 Proposed Procedures p ORIF Proximal Humerus greater tuberosity 33327 S42.251A(Right) - Jun Pimentel MD Familial anesthetic complications: None Was Beta Narda taken within 24 hours: N/A Last intake: NPO > 8 hrs Meds this morning (Topamax, benztroprine bupropion) Social: Social History: Tobacco and No alcohol Packs per day: 0.5 ppd Exam: Pre-Anes Outpt Exam: alert, oriented x 3, clear to auscultation bilaterally and regular rate & rhythm Airway: Cervical ROM: WNL MP: 2 Dentition: Chipped Pulmonary: Pulmonary: None reported CV/HEM: CV/HEM: None reported : : None reported Hepatic: Hepatic: None reported GI: GI: None reported Metabolic: Metabolic: Morbid obesity and Thyroid Musc/skel: Musc/skel: None reported Comments: R prox humerus fracture Neuropsych: Neuropsych: None reported Comments: toprimate for migraines Anesthetic Plan: ASA status: 2 Anesthesia: General and Regional (specify below) Risk of > 500 ml blood loss (7ml/kg in children): No PFSH Anesthesia PFSH: Social History Smoking and tobacco status: current every day smoker cigarettes Packs smoked per day: 0.25 Alcohol intake: current Alcohol intake frequency: holidays/special occasions only History of recent travel: No Current gender identity: Female Female Reproductive History: Date of last menstrual period: 12/01/19 Data Anesthesia Other Labs: Laboratory Results - last 48 hr 01/17/20 10:26 Urine HCG, Qual Negative Cardiac Studies: No Data to Display
[2020-01-17] MEDS: sodium chloride 0.9% 1,000 ML 30 ML IV (10:57)
[2020-01-17] MEDS: fentaNYL 50 mcg/mL INJ 2mL IVP (11:17)
--- NOTE | 2020-01-17 11:46 | W.PM.OPSUD ---
Surgery/Procedure H&P Update DATE OF PROCEDURE: January 17, 2020 DATE H&P PERFORMED: 01/11/20 H&P UPDATE INFORMATION: I have reviewed H&P completed within last 30 days PREOP DIAGNOSIS: Fracture right humerus greater tuberosity PLANNED PROCEDURE: Operation Date: 01/17/20 11:35 Proposed Procedures p ORIF Proximal Humerus greater tuberosity 83167 S42.251A(Right) - Jun Pimentel MD
--- NOTE | 2020-01-17 12:28 | ANES.PROC ---
Anesthesia Procedures Procedure/Date: 01/17/20 Nerve Block ^: Nerve Block 1: Main Anesthesia: general anesthesia Time Out Performed: Yes Consent: requested by attending/covering physician, from patient, risks and benefits reviewed and patient agrees to proceed Nerve block location: interscalene (R) Anesthesia monitors applied: pulse oximetry, BP cuff and oxygen Nerve block position: semi sitting Anesthetic Used: ropivicaine 0.5% and with decadron (4 mg) Amount of anesthesia used (mL): 20 Ultrasound used to: recognize landmarks Interscalene/Femoral BLK: 2 stimuplex 22 g needle used for position and inplane approach Injection: neg aspiration of heme Patient Tolerated Procedure: well Complications: none
--- NOTE | 2020-01-17 13:53 | PM.OP ---
Operative Report Date of procedure: January 17, 2020 Pre-op Diagnosis: Fracture right humerus greater tuberosity, axillary nerve injury right shoulder Post-op diagnosis: same Post-op Findings: Patient had a comminuted fracture of the greater tuberosity with displacement posteriorly and superiorly into the subacromial space Procedure Done: Open reduction open reduction and internal fixation right humerus greater tuberosity Implants: StrykerS ASNIS 4.0 mm partially-threaded cancellous screw and washer and Butts and Nephew Q fix 1.8 mm anchors x2 Pathology: none sent Surgeon: Jun Pimentel Anesthesia: General Estimated blood loss (mL): 25 Findings: The patient had a displaced somewhat comminuted fracture of her right humeral greater tuberosity with posterior and superior displacement of the fragments into the subacromial space. Axillary nerve was not visualized Condition: stable Disposition: PACU Brief History: The patient is a 44-year-old female who sustained a right shoulder dislocation with associated greater tuberosity fracture and clinical axillary nerve palsy. She was taken to the operating room for open reduction internal fixation of the displaced greater tuberosity fragment. Procedure: The patient was given 2 g of Ancef and taken to the operating room. He was prepped and rate in the beachchair position with the right shoulder exposed. A timeout was performed. A 5 cm long incision was made from the anterior lateral acromion extending distally in line with the deltoid fibers. Dissection was carried to the deltoid fascia which was split longitudinally. This allowed visualization of the greater tuberosity defect. With a Joseline clamp the displaced greater tuberosity fragment was grasped from the posterior superior, subacromial space and brought anteriorly and distally into the defect. Guidepin and a single 4.0 mm Asnis screw measuring 40 mm in length was placed centrally in the ALT largest fragment maintaining reduction. Ultimately 2 Butts & Nephew Q fix anchors were placed, one ultimately posterior to the bicipital groove were good bone was identified in 1 more lateral and distal. That the suture anchors were then passed through the musculotendinous junction of the fragment and secured creating a tension band anteriorly and laterally. Intraoperative imaging showed satisfactory position of hardware. The wound was irrigated with saline. The deltoid was closed with 0 Vicryl. Subcutaneous tissues were closed with 2-0 Vicryl. The skin was closed with skin tamara. The patient was placed in a sling, extubated, and taken recovery room in stable condition.
--- NOTE | 2020-01-17 14:02 | SUR.PHASEI ---
1400 PATIENT TO PACU AT THIS TIME FROM OR. RR EVEN AND UNLABORED. PATIENT PLACED ON SIMPLE MASK AT 8L, SPO2 98%. DRESSING TO RIGHT SHOULDER, CDI WITH SLING IN PLACE TO RIGHT ARM. RIGHT RADIAL PULSE STRONG AND INTACT.
--- NOTE | 2020-01-17 14:24 | SUR.PHASEI ---
1421 PATIENT TO OPS AT THIS TIME FROM PACU. DENIES PAIN. RR EVEN AND UNLABORED. DRESSING TO RIGHT SHOULDER, CDI WITH SLING IN PLACE. PATIENT TOLERATING ICE CHIPS.
== END 2020-01-17 15:12 | disposition home or self-care (01) ==
PROVIDERS: PCP Nurse Practitioner; Visit Provider Orthopaedic Surgery
PROC: (CPT 23615; principal; 2020-01-17 11:25)
DX: S42.254A Nondisplaced fracture of greater tuberosity of right humerus, initial encounter for closed fracture (principal); X58.XXXA Exposure to other specified factors, initial encounter; E66.01 Morbid (severe) obesity due to excess calories; Z68.42 Body mass index [BMI] 45.0-49.9, adult; Z79.82 Long term (current) use of aspirin; E03.9 Hypothyroidism, unspecified
CPT/HCPCS: 23630; 12345; 73030; 76000; 84703; 96374; C1713; J0330; J0690; J1100; J1580; J2001; J2405; J2704; J2710; J2795; J3010; J3490; J7030

== ENCOUNTER → 2020-01-19 10:38 | Outpatient (BNVA) | payer MEDICARE, MEDICAID, SELFPAY | PROVIDERS: PCP Nurse Practitioner; Visit Provider Psychiatry & Neurology Psychiatry | DX: F31.11 Bipolar disorder, current episode manic without psychotic features, mild (principal); F06.30 Mood disorder due to known physiological condition, unspecified; E63.9 Nutritional deficiency, unspecified; K90.9 Intestinal malabsorption, unspecified | CPT/HCPCS: 99205 ==

== ENCOUNTER → 2020-01-20 14:03 | Outpatient (BNVA) | payer MEDICARE, MEDICAID, SELFPAY | PROVIDERS: PCP Nurse Practitioner; Visit Provider Family Medicine | DX: E03.9 Hypothyroidism, unspecified (principal); R60.0 Localized edema; F17.219 Nicotine dependence, cigarettes, with unspecified nicotine-induced disorders | CPT/HCPCS: 84443 ==

== ENCOUNTER → 2020-01-27 13:17 | Outpatient (BNVA) | payer MEDICARE, MEDICAID, SELFPAY | PROVIDERS: PCP Nurse Practitioner; Visit Provider Family Medicine | DX: R60.0 Localized edema (principal) | CPT/HCPCS: 80048 ==

== ENCOUNTER 2020-02-28 07:22 | Outpatient (RCR) | payer MEDICARE, MEDICAID, SELFPAY | END 2020-03-07 23:59 | disposition home or self-care (01) | LOC: SPT 07:22 | PROVIDERS: PCP Family Medicine; Referring Provider Orthopaedic Surgery; Visit Provider Orthopaedic Surgery | DX: T14.8XXD Other injury of unspecified body region, subsequent encounter (principal); X58.XXXD Exposure to other specified factors, subsequent encounter | CPT/HCPCS: 97110; 97161; 99212 ==

== ENCOUNTER → 2020-02-29 10:54 | Outpatient (BNVA) | payer MEDICARE, MEDICAID, SELFPAY | PROVIDERS: PCP Family Medicine; Visit Provider Orthopaedic Surgery | DX: G43.711 Chronic migraine without aura, intractable, with status migrainosus (principal); R55 Syncope and collapse; F17.210 Nicotine dependence, cigarettes, uncomplicated | CPT/HCPCS: 73030; 99214 ==

== ENCOUNTER → 2020-03-01 13:43 | Outpatient (BNVA) | payer MEDICARE, MEDICAID, SELFPAY | PROVIDERS: PCP Family Medicine; Visit Provider Family Medicine | DX: R60.0 Localized edema (principal) | CPT/HCPCS: 80048 ==

== ENCOUNTER 2020-03-08 06:00 | Outpatient (RCR) | payer MEDICARE, MEDICAID, SELFPAY | END 2020-04-07 23:59 | disposition home or self-care (01) | LOC: SPT 06:00 | PROVIDERS: PCP Family Medicine; Referring Provider Orthopaedic Surgery; Visit Provider Orthopaedic Surgery | DX: T14.8XXD Other injury of unspecified body region, subsequent encounter (principal); X58.XXXD Exposure to other specified factors, subsequent encounter | CPT/HCPCS: 97110 ==

== ENCOUNTER → 2020-03-27 07:45 | Outpatient (BNVA) | payer MEDICARE, MEDICAID, SELFPAY | PROVIDERS: PCP Family Medicine; Visit Provider Nurse Practitioner Psychiatric/Mental Health | DX: F31.75 Bipolar disorder, in partial remission, most recent episode depressed (principal); F41.9 Anxiety disorder, unspecified; F17.210 Nicotine dependence, cigarettes, uncomplicated | CPT/HCPCS: 99212 ==

== ENCOUNTER → 2020-05-08 10:02 | Outpatient (BNVA) | payer MEDICARE, MEDICAID, SELFPAY | PROVIDERS: PCP Family Medicine; Visit Provider Nurse Practitioner Psychiatric/Mental Health | DX: F41.9 Anxiety disorder, unspecified (principal); F31.75 Bipolar disorder, in partial remission, most recent episode depressed; F17.210 Nicotine dependence, cigarettes, uncomplicated | CPT/HCPCS: 99212 ==

== ENCOUNTER → 2020-05-16 15:37 | Outpatient (BNVA) | payer MEDICARE, MEDICAID, SELFPAY | PROVIDERS: PCP Family Medicine; Visit Provider Family Medicine | DX: E03.9 Hypothyroidism, unspecified (principal); R60.0 Localized edema; G43.711 Chronic migraine without aura, intractable, with status migrainosus; Z68.43 Body mass index [BMI] 50.0-59.9, adult; F17.219 Nicotine dependence, cigarettes, with unspecified nicotine-induced disorders | CPT/HCPCS: 80048; 84443 ==

== ENCOUNTER 2020-05-17 06:00 | Outpatient (RCR) | payer MEDICARE, MEDICAID, SELFPAY | END 2020-06-07 23:59 | disposition home or self-care (01) | LOC: SPT 06:00 | PROVIDERS: PCP Family Medicine; Referring Provider Orthopaedic Surgery; Visit Provider Orthopaedic Surgery | DX: T14.8XXD Other injury of unspecified body region, subsequent encounter (principal); X58.XXXD Exposure to other specified factors, subsequent encounter | CPT/HCPCS: 97161 ==

== ENCOUNTER → 2020-06-28 13:51 | Outpatient (BNVA) | payer MEDICARE, MEDICAID, SELFPAY | PROVIDERS: PCP Family Medicine; Visit Provider Orthopaedic Surgery | DX: Z47.89 Encounter for other orthopedic aftercare (principal); S42.251D Displaced fracture of greater tuberosity of right humerus, subsequent encounter for fracture with routine healing; X58.XXXD Exposure to other specified factors, subsequent encounter | CPT/HCPCS: 73030 ==

== ENCOUNTER → 2020-06-30 11:45 | Outpatient (BNVA) | payer MEDICARE, MEDICAID, SELFPAY | PROVIDERS: PCP Family Medicine; Visit Provider Family Medicine | DX: Z12.31 Encounter for screening mammogram for malignant neoplasm of breast (principal); Z23 Encounter for immunization; Z01.419 Encounter for gynecological examination (general) (routine) without abnormal findings | CPT/HCPCS: 88175 ==

== ENCOUNTER → 2020-07-03 08:32 | Outpatient (BNVA) | payer MEDICARE, MEDICAID, SELFPAY | PROVIDERS: PCP Family Medicine; Visit Provider Nurse Practitioner Psychiatric/Mental Health | DX: F31.75 Bipolar disorder, in partial remission, most recent episode depressed (principal); F41.9 Anxiety disorder, unspecified; F33.2 Major depressive disorder, recurrent severe without psychotic features | CPT/HCPCS: G0463 ==

== ENCOUNTER → 2020-08-30 13:38 | Outpatient (BNVA) | payer MEDICARE, MEDICAID, SELFPAY | PROVIDERS: PCP Family Medicine; Visit Provider Specialist | DX: G43.711 Chronic migraine without aura, intractable, with status migrainosus (principal); F31.9 Bipolar disorder, unspecified; F17.200 Nicotine dependence, unspecified, uncomplicated; F17.210 Nicotine dependence, cigarettes, uncomplicated | CPT/HCPCS: 99213 ==

== ENCOUNTER → 2020-09-05 14:48 | Outpatient (BNVA) | payer MEDICARE, MEDICAID, SELFPAY | PROVIDERS: PCP Family Medicine; Visit Provider Orthopaedic Surgery | DX: Z47.89 Encounter for other orthopedic aftercare (principal); S42.254K Nondisplaced fracture of greater tuberosity of right humerus, subsequent encounter for fracture with nonunion; X58.XXXD Exposure to other specified factors, subsequent encounter | CPT/HCPCS: 73030 ==

== ENCOUNTER → 2020-09-09 11:31 | Outpatient (BNVA) | payer MEDICARE, MEDICAID, SELFPAY | PROVIDERS: PCP Family Medicine; Visit Provider Orthopaedic Surgery | DX: Z20.828 Contact with and (suspected) exposure to other viral communicable diseases (principal); Z01.812 Encounter for preprocedural laboratory examination | CPT/HCPCS: 87635 ==

== ENCOUNTER 2020-09-14 11:57 | Day surgery (SDC) | payer MEDICARE, MEDICAID, SELFPAY ==
[2020-09-13 12:59] VITALS: BMI 51.7
[2020-09-14] VITALS (8 sets, daily range): BP systolic 119–139; BP diastolic 78–104; PULSE 71–83; RESP 12–18; TEMP 36.1–36.7; O2SAT 95–100; BMI 53.0
--- NOTE | 2020-09-14 12:35 | ANES.PREANE2 ---
Pre-Anesthetic Assessment Pre-Anesthetic Assessment: Height/Weight: Height 1.57 m Weight 131.542 kg Temp Pulse Resp BP Pulse Ox 98.1 F 71 18 139/104 98 09/14/20 12:25 09/14/20 12:25 09/14/20 12:25 09/14/20 12:25 09/14/20 12:25 Preop Diagnosis: Painful hardware Right shoulder Proposed Procedure: Operation Date: 09/14/20 13:35 Proposed Procedures p right Hardware Removal Shoulder [id number] s42.251a z48.89(Right) - Jun Pimentel MD s diagnotic Shoulder Arthroscopy(Not Applicable) - Jun Pimentel MD Familial anesthetic complications: None Was Beta Narda taken within 24 hours: N/A Last intake: Intake Last Liquid Date 09/13/20 Last Liquid Time 21:00 Last Solid Date 09/13/20 Last Solid Time 21:00 Social: Social History: Tobacco and No alcohol Exam: Pre-Anes Outpt Exam: alert, oriented x 3, clear to auscultation bilaterally and regular rate & rhythm Airway: Cervical ROM: WNL MP: 3 Dentition: Full CV/HEM: CV/HEM: HTN Metabolic: Metabolic: Morbid obesity and Thyroid Neuropsych: Comments: patient denies axillary nerve palsy - per surgeon she had numbness over her shoudler which resolved quickly after her surgery Anesthetic Plan: ASA status: 2 Anesthesia: MAC and Regional (specify below) Risk of > 500 ml blood loss (7ml/kg in children): No PFSH Anesthesia PFSH: Medical History Bipolar disorder, in partial remission, most recent episode depressed Endometriosis Hypothyroidism IBS (irritable bowel syndrome) Migraine Surgical History S/P appendectomy S/P cholecystectomy S/P endometrial ablation S/P foot surgery S/P sinus surgery S/P tonsillectomy Family History Grandmother Dementia Stroke Cancer Mother Hypertension Father Hypertension Grandfather Diabetes Cancer Social History Smoking and tobacco status: current every day smoker cigarettes Packs smoked per day: 0.25 and e-cigarettes E-Cigarette Details: e-cigarette E-cig/vape details: 3 puffs 3-4 times per day Quit status (tobacco): quit date established Planned quit date: 03/02/20 Second hand smoke exposure: Yes (boyfriend is quiting with her.) Alcohol intake: current Alcohol intake frequency: holidays/special occasions only Marital status: History of recent travel: Yes (travel to [place] last week ) Current gender identity: Female Female Reproductive History: Date of last menstrual period: 12/01/19 Data Anesthesia Cardiac Studies: No Data to Display
--- NOTE | 2020-09-14 12:36 | W.PM.OPSUD ---
Surgery/Procedure H&P Update DATE OF PROCEDURE: September 14, 2020 DATE H&P PERFORMED: 09/05/20 PREOP DIAGNOSIS: Painful hardware Right shoulder PLANNED PROCEDURE: Operation Date: 09/14/20 13:35 Proposed Procedures p right Hardware Removal Shoulder [id number] s42.251a z48.89(Right) - Jun Pimentel MD s diagnotic Shoulder Arthroscopy(Not Applicable) - Jun Pimentel MD
[2020-09-14] MEDS: sodium chloride 0.9% 1,000 ML 30 ML IV (12:49)
[2020-09-14] MEDS: midazolam 1 mg/mL INJ 5 ML 5 MG IVP (12:55)
[2020-09-14 12:56] LABS: OR HCG Qualitative Urine Negative (Negative)
--- NOTE | 2020-09-14 14:16 | PM.OP ---
Operative Report Date of procedure: September 14, 2020 Pre-op Diagnosis: Painful hardware Right shoulder Post-op diagnosis: same Post-op Findings: Prominent hardware right greater tuberosity, healed greater tuberosity/rotator cuff Procedure Done: Diagnostic arthroscopy right shoulder with removal hardware Pathology: none sent Anesthesia: General and Nerve Block (Interscalene block) Estimated blood loss (mL): 20 Findings: The patient had prominence of the right screw and washer beyond the remaining greater tuberosity. The rotator cuff and tuberosity appeared to be healed arthroscopically Condition: stable Disposition: PACU Brief History: Jonna underwent open reduction and internal fixation of her right shoulder greater tuberosity fracture with continued pain and stiffness. Some resorption of the greater tuberosity was noted with prominence of the screw and it was felt that the screw prominence could be limiting motion. Surgery was chosen to remove hardware and arthroscopy was utilized to assess healing of the rotator cuff/greater tuberosity fracture fragment Procedure: The patient was taken to the operating room after interscalene block was provided by anesthesia. She was given a general anesthesia. She is prepped and draped in the lateral position with her right arm in 20 pounds of traction due to its size. Initially a 3 cm long incision was made in line with the previous scar just lateral to the acromion. Dissection was carried down with a scalpel blade and Wilburn scissors to the tuberosity and the prominent screw was identified. The washer was identified and held with a hemostat. A screwdriver was used to remove the screw without difficulty. The skin was then closed with a towel clip. A posterior portal was made 2 cm and inferior and medial to the posterior corded acromion and the scope placed into the subacromial space. A probe could be placed through the lateral incision the rotator cuff was inspected and found to be healthy with no significant subacromial adhesions. Arthroscopic equipment was removed. The deltoid fascia was closed with 0 Vicryl. The subcutaneous tissue with 2-0 Vicryl. The skin was closed with running 3-0 Prolene and Steri-Strips. The posterior portal was closed with a simple 3-0 Prolene. Sterile dressings were applied. The patient was placed in a sling, extubated, and taken to recovery in stable condition.
--- NOTE | 2020-09-14 14:28 | ANES.PROC ---
Anesthesia Procedures Procedure/Date: 09/14/20 Nerve Block ^: Nerve Block 1: Main Anesthesia: general anesthesia Time Out Performed: Yes Consent: requested by attending/covering physician, from patient and risks and benefits reviewed Nerve block location: interscalene (R) Anesthesia monitors applied: pulse oximetry, EKG, BP cuff and oxygen Anesthetic Used: ropivicaine 0.5% and with decadron (3 mg) Amount of anesthesia used (mL): 20 Ultrasound used to: recognize landmarks and visualize and ID brachial plexus Nerve Stimulator Used?: No Interscalene/Femoral BLK: 2 stimuplex 22 g needle used for position and inplane approach and visualize local anesthetic spread Injection: neg aspiration of heme Patient Tolerated Procedure: well and no complications Complications: none
[2020-09-14] MEDS: oxyCODONE-APAP 5-325 mg Tablet 1 TAB PO (14:54)
--- NOTE | 2020-09-14 19:29 | ANE.PACU2 ---
Inpatient post-anesthesia follow up: Airway intact: Yes Vital signs: Temperature 98.1 F Pulse Rate 83 Respiratory Rate 18 Blood Pressure 122/80 Pulse Oximetry 96 Oxygen Delivery Me thod Room Air Oxygen Flow Rate 8 Fraction of Inspir ed Oxygen Hydration adequate: Yes Nausea and vomiting: No Pain level: 1 Mental status: Baseline
== END 2020-09-14 15:30 | disposition home or self-care (01) ==
PROVIDERS: PCP Family Medicine; Visit Provider Orthopaedic Surgery
PROC: (CPT 20680; principal; 2020-09-14 13:35)
PROC: (CPT 29805; 2020-09-14 13:35)
DX: T84.84XA Pain due to internal orthopedic prosthetic devices, implants and grafts, initial encounter (principal); I10 Essential (primary) hypertension; E66.01 Morbid (severe) obesity due to excess calories; Z68.43 Body mass index [BMI] 50.0-59.9, adult; E03.9 Hypothyroidism, unspecified; F17.210 Nicotine dependence, cigarettes, uncomplicated
CPT/HCPCS: 20680; 12345; 64415; 76942; 81025; 84703; 96374; J0330; J0690; J1100; J2250; J2405; J2704; J2710; J2795; J3010; J3490; J7030

== ENCOUNTER → 2020-09-18 08:17 | Outpatient (BNVA) | payer MEDICARE, MEDICAID, SELFPAY | PROVIDERS: PCP Family Medicine; Visit Provider Nurse Practitioner Psychiatric/Mental Health | DX: F41.9 Anxiety disorder, unspecified (principal); F31.76 Bipolar disorder, in full remission, most recent episode depressed | CPT/HCPCS: 99212 ==

== ENCOUNTER 2020-12-04 20:10 | Inpatient (IN) | payer MEDICARE, MEDICAID, SELFPAY ==
[2020-12-04 20:28] VITALS: BP 158/98; PULSE 112; RESP 22; TEMP 36.6; O2SAT 97; BMI 42.8
[2020-12-04] MEDS: LORazepam 2 mg/mL INJ 1 mL IM (20:38)
[2020-12-04] MEDS: ziprasidone 20 mg/mL SDV IM (20:39)
--- NOTE | 2020-12-04 20:39 | PC.NURSE ---
Due to pt condition 1 vial Geodon and 1 vial Ativan pulled from pyxis to administer.
--- NOTE | 2020-12-04 21:08 | XRR_ITS ---
PROCEDURE INFORMATION: Exam: XR Right Ankle Exam date and time: 12/04/2020 9:23 PM Age: 45 years old Clinical indication: Pain and injury or trauma; Other: Not specified; Blunt trauma; Ankle; Right; Additional info: Ankle pain TECHNIQUE: Imaging protocol: XR Right ankle. Views: 3 or more views. COMPARISON: No relevant prior studies available. FINDINGS: Bones/joints: Calcaneal spur. Acute fracture distal fibula with intra-articular extension. The ankle mortise is intact. Soft tissues: Normal. XR/XR ankle RT min 3V* [id number] IMPRESSION: Acute nondisplaced intra-articular fracture distal right fibula.
[2020-12-04 21:25] LABS: Basophils # 0.1 10^3/uL (0.0-0.1); Basophils % 0.4 %; Eosinophils # 0.2 10^3/uL (0.0-0.8); Eosinophils % 1.4 %; Hematocrit 43.6 % (37.0-47.0); Hemoglobin 14.2 g/dL (11.5-15.3); Lymphocytes % 33.8 %; Mean Corpuscular HGB Conc 32.6 g/dL (30.0-36.0); Mean Corpuscular Hemoglobin 28.7 pg (28.0-34.0); Mean Corpuscular Volume 88.1 fL (81-99); Mean Platelet Volume 11.2 fL (7.4-10.4); Monocytes # 0.9 10^3/uL (0.2-0.9); Monocytes % 7.2 %; Neutrophils # 6.75 10^3/uL (1.8-7.7); Neutrophils % 56.9 %; Nucleated Red Blood Cells % 0 %; Platelet Count 284 10^3/cmm (130-400); Red Blood Count 4.95 10^6/uL (4.1-5.3); Red Cell Distribution Width 13.2 % (12.1-15.1); White Blood Count 11.8 10^3/uL (4.0-10.0)
[2020-12-04 21:39] LABS: Acetaminophen < 5.0 ug/mL (10-30); Alanine Aminotransferase 17 U/L (0-33); Albumin Level 4.1 g/dL (3.5-5.2); Alcohol Level < 10 mg/dL (0-10); Alkaline Phosphatase 97 IU/L (35-105); Anion Gap 20.2 (5-19); Aspartate Amino Transferase 16 U/L (0-32); Blood Urea Nitrogen 10 mg/dL (6-20); Calcium 9.1 mg/dL (8.5-10.5); Carbon Dioxide 18 mmol/L (22-29); Chloride 105 mmol/L (98-107); Globulin 3.6 g/dL (1.3-4.6); Glomerular Filtration Rate 67.1 mL/min (90-130); Glucose 101 mg/dL (65-115); Osmolality Calculated 289 mOsm/kg (285-295); Potassium 3.2 mmol/L (3.5-5.1); Salicylate < 0.3 mg/dL (3-10); Sodium 140 mmol/L (136-145); Total Bilirubin 0.3 mg/dL (0.15-1.2); Total Protein 7.7 g/dL (6.6-8.7)
--- NOTE | 2020-12-04 23:14 | PC.NURSE ---
Walker Constance boot applied to right foot
[2020-12-04 23:55] VITALS: BP 138/87; PULSE 91; RESP 17; TEMP 36.6; O2SAT 97
[2020-12-05 00:39] VITALS: BP 131/85; PULSE 88; RESP 16; TEMP 36.5; O2SAT 97
[2020-12-05 00:49] VITALS: BP 131/85; PULSE 88; RESP 16; TEMP 36.5; O2SAT 97
--- NOTE | 2020-12-05 00:51 | W.ED.PSYCH ---
HPI - Psych General: Chief Complaint: Psychiatric Symptoms Stated Complaint: 96HR Time Seen by Provider: 12/04/20 20:22 Source: patient and police Mode of arrival: ambulatory History of Present Illness: HPI Narrative: This is a 45-year-old female who was brought in by law enforcement with a 96-hour court-ordered hold. She was brought in for psychiatric evaluation due to symptoms that appear to be manic. When I spoke to her she said she is , she has been since May and is yet to see an lining stitcher for this. She also complains of right ankle pain. She feels her ankle is broken. On arrival to the emergency department she was laughing maniacally. According to the affidavit that was brought in by the lawn care professional she had claimed that she was Shirley the mother tushar Laura. She was very loud in the emergency department, was rude to the line driver license reviewing officer that was with her, calling him an idiot. Her family states that she has been off her medications for bipolar disorder. MD complaint: altered mental status Duration: constant History of same: Yes Context: not taking psychiatric medications Associated symptoms: Reports delusions Treatments prior to arrival: placed on mental health hold Review of Systems General: Reports: 10 or more systems reviewed and unremarkable except in HPI and below PFSH ED PFSH: Medical History (Updated 12/05/20 @ 11:51 by Jonatan Manuel MD, [facility] [place]) Bipolar disorder, in partial remission, most recent episode depressed Endometriosis Hypothyroidism IBS (irritable bowel syndrome) Migraine Surgical History S/P appendectomy S/P cholecystectomy S/P endometrial ablation S/P foot surgery S/P sinus surgery S/P tonsillectomy Family History Grandmother Dementia Stroke Cancer Mother Hypertension Father Hypertension Grandfather Diabetes Cancer Social History Smoking and tobacco status: current every day smoker cigarettes Packs smoked per day: 0.25 and e-cigarettes E-Cigarette Details: e-cigarette E-cig/vape details: 3 puffs 3-4 times per day Quit status (tobacco): quit date established Planned quit date: 03/02/20 Second hand smoke exposure: Yes (boyfriend is quiting with her.) Alcohol intake: current Alcohol intake frequency: holidays/special occasions only Marital status: History of recent travel: Yes (travel to [place] last week ) Current gender identity: Female Female Reproductive History: Date of last menstrual period: 12/01/19 Physical Exam Const: COMMON NORMALS: no acute distress, average body habitus, patient oriented x3, no limitations, healthy appearing, alert and well nourished NUTRITIONAL APPEARANCE: obese morbidly obese HENMT: COMMON NORMALS: normocephalic, atraumatic and moist oral mucous membranes HEAD & SCALP: normocephalic and atraumatic Neck/C-Spine: COMMON NORMALS: no meningeal signs and no JVD Resp: COMMON NORMALS: normal respiratory effort, No retractions, No use of accessory muscles, clear to auscultation bilaterally and percussion normal AUSCULTATION: clear to auscultation bilaterally PERCUSSION: percussion normal Cardio: COMMON NORMALS: no JVD, regular rate, regular rhythm, S1 normal heart sound present, S2 normal heart sound present, No gallops present (Cardio), No clicks present (Cardio), No murmurs present (Cardio), No rub (Cardio) and Peripheral pulses 2+ throughout RATE: regular rate RHYTHM: regular rhythm HEART SOUNDS: S1 normal heart sound present and S2 normal heart sound present PERIPHERAL PULSES: Peripheral pulses 2+ throughout GI: COMMON NORMALS: Normal to inspection, nondistended, normoactive bowel sounds present, Soft to palpation, non-tender, No hepatosplenomegaly present, no masses and no bruits PALPATION: Yes Soft to palpation and Yes No hepatosplenomegaly present Extremity: COMMON NORMALS: normal to inspection, full ROM, capillary refill normal, no calf tenderness and no pedal edema RIGHT LOWER EXTREMITY: Yes foot & digits (Swollen laterally and tender to palpation.) Neuro: COMMON NORMALS: patient oriented x3 SENSORIUM/ORIENTATION: Yes alert MENINGEAL SIGNS: Yes no meningeal signs Psych: THOUGHT CONTENT: Yes delusions Skin: COMMON NORMALS: no rashes or lesions noted, no wounds, turgor normal, no jaundice, no petechiae and no mottling GENERAL SKIN EXAM: no rashes or lesions noted and turgor normal MDM - Psych MDM Narrative: Medical decision making narrative: 45-year-old female patient who presents to the emergency department with delusions and symptoms consistent with doen. At this time she is obviously psychotic and is unsafe to be discharged home. She did arrive with a court ordered 96-hour hold and will need to be evaluated by the psychiatrist. She was medically cleared and admitted to the neuropsychiatric unit for further evaluation and management. X-ray of her ankle did show a right fibular fracture that is not displaced. Medical Records: Attestation: I reviewed the patient's medical records. Lab Data: Attestation: I reviewed the patient's lab results. Labs: Lab Results 12/04/20 12/04/20 12/04/20 Range/Units 06:45 06:45 21:10 WBC 11.8 H (4.0-10.0) 10^3/ uL RBC 4.95 (4.1-5.3) 10^6/u L Hgb 14.2 (11.5-15.3) g/dL Hct 43.6 (37.0-47.0) % MCV 88.1 (81-99) fL MCH 28.7 (28.0-34.0) pg MCHC 32.6 (30.0-36.0) g/dL RDW 13.2 (12.1-15.1) % Plt Count 284 (130-400) 10^3/c mm MPV 11.2 H (7.4-10.4) fL Neut % (Auto) 56.9 % Lymph % (Auto) 33.8 % Com[place] % (Auto) 7.2 % Eos % (Auto) 1.4 % Baso % (Auto) 0.4 % Neut # (Auto) 6.75 (1.8-7.7) 10^3/u L Lymph # (Auto) 4.0 (0.8-4.8) 10^3/u L Comal # (Auto) 0.9 (0.2-0.9) 10^3/u L Eos # (Auto) 0.2 (0.0-0.8) 10^3/u L Baso # (Auto) 0.1 (0.0-0.1) 10^3/u L Nucleated RBC % (a uto) 0 % Nucleated RBCs # 0.0 /100WBC Sodium (136-145) mmol/L Potassium (3.5-5.1) mmol/L Chloride (98-107) mmol/L Carbon Dioxide (22-29) mmol/L Anion Gap (5-19) BUN (6-20) mg/dL Creatinine (0.5-0.9) mg/dL GFR Calculation (90-130) mL/min Glucose (65-115) mg/dL Calculated Osmolal ity (285-295) mOsm/k g Calcium (8.5-10.5) mg/dL Total Bilirubin (0.15-1.2) mg/dL AST (0-32) U/L ALT (0-33) U/L Alkaline Phosphata se (35-105) IU/L Total Protein (6.6-8.7) g/dL Albumin (3.5-5.2) g/dL Globulin (1.3-4.6) g/dL HCG, Qual Negative (Negative) Salicylates (3-10) mg/dL Urine Opiates Scre en Negative (Negative) ng/mL Acetaminophen (10-30) ug/mL Ur Barbiturates Sc reen Negative (Negative) ng/mL Ur Phencyclidine S crn Negative (Negative) ng/mL Ur Amphetamines Sc reen Negative (Negative) ng/mL U Benzodiazepines Scrn Positive H (Negative) ng/mL Urine Cocaine Scre en Negative (Negative) ng/mL U Marijuana (THC) Screen Positive H (Negative) ng/mL Ethyl Alcohol (0-10) mg/dL 12/04/20 Range/Units 21:10 WBC (4.0-10.0) 10^3/ uL RBC (4.1-5.3) 10^6/u L Hgb (11.5-15.3) g/dL Hct (37.0-47.0) % MCV (81-99) fL MCH (28.0-34.0) pg MCHC (30.0-36.0) g/dL RDW (12.1-15.1) % Plt Count (130-400) 10^3/c mm MPV (7.4-10.4) fL Neut % (Auto) % Lymph % (Auto) % [place] % (Auto) % Eos % (Auto) % Baso % (Auto) % Neut # (Auto) (1.8-7.7) 10^3/u L Lymph # (Auto) (0.8-4.8) 10^3/u L Comal # (Auto) (0.2-0.9) 10^3/u L Eos # (Auto) (0.0-0.8) 10^3/u L Baso # (Auto) (0.0-0.1) 10^3/u L Nucleated RBC % (a uto) % Nucleated RBCs # /100WBC Sodium 140 (136-145) mmol/L Potassium 3.2 L (3.5-5.1) mmol/L Chloride 105 (98-107) mmol/L Carbon Dioxide 18 L (22-29) mmol/L Anion Gap 20.2 H (5-19) BUN 10 (6-20) mg/dL Creatinine 0.9 (0.5-0.9) mg/dL GFR Calculation 67.1 L (90-130) mL/min Glucose 101 (65-115) mg/dL Calculated Osmolal ity 289 (285-295) mOsm/k g Calcium 9.1 (8.5-10.5) mg/dL Total Bilirubin 0.3 (0.15-1.2) mg/dL AST 16 (0-32) U/L ALT 17 (0-33) U/L Alkaline Phosphata se 97 (35-105) IU/L Total Protein 7.7 (6.6-8.7) g/dL Albumin 4.1 (3.5-5.2) g/dL Globulin 3.6 (1.3-4.6) g/dL HCG, Qual (Negative) Salicylates < 0.3 L (3-10) mg/dL Urine Opiates Scre en (Negative) ng/mL Acetaminophen < 5.0 L (10-30) ug/mL Ur Barbiturates Sc reen (Negative) ng/mL Ur Phencyclidine S crn (Negative) ng/mL Ur Amphetamines Sc reen (Negative) ng/mL U Benzodiazepines Scrn (Negative) ng/mL Urine Cocaine Scre en (Negative) ng/mL U Marijuana (THC) Screen (Negative) ng/mL Ethyl Alcohol < 10 (0-10) mg/dL Imaging Data^: Xray Ortho: Attestation: I personally reviewed and interpreted this imaging study as follows: My impression: Right ankle x-ray shows a nondisplaced fracture of the distal fibula Discharge Plan Discharge Patient Disposition: Admitted As Inpatient Admit Provider: Dewayne Puga Clinical Impression: Acute psychosis, Fracture of distal end of fibula Condition: Stable Coding Level of Care Code ED Automatic Driller And Reamer for Snehal Hyde
[2020-12-05] MEDS: ibuprofen 600 mg Tablet PO ×2 (01:27→21:13)
--- NOTE | 2020-12-05 01:47 | PC.NURSE ---
Skin assessment revealed a scrape to left knee surrounded by bruised tissue. The scrape is 1 1/2 inches across and 3 inches long. The bruised area is 4 inches across and 7 inches long. There is an old surgical scar on her left shoulder. The patient is wearing a foot immobilizer on the right foot. The patient fractured the foot 12/04/20.
[2020-12-05 06:00] VITALS: BP 149/75; PULSE 98; RESP 18; TEMP 36.1; O2SAT 98
[2020-12-05 07:22] LABS: HCG Qualitative Urine. Negative (Negative)
[2020-12-05 07:31] LABS: Add Urine Microscopic? YES; Bilirubin Urine 1+ (Negative); Blood Urine 2+ (Negative); Glucose Urine UA Norm (Normal); Ketones Urine 3+ (Negative); Leukocyte Esterase Urine 2+ (Negative); Nitrate Urine Negative (Negative); Protein Urine Neg (Negative); Specific Gravity, Urine 1.025 (1.005-1.030); Urine Appearance Cloudy (CLEAR); Urine Color Yellow (Yellow); Urobilinogen Urine 1 mg/dL (Negative); pH Urine 5 (5-7)
[2020-12-05 07:33] LABS: Bacteria Urine 3+ /hpf; WBC Urine TOO NUMEROUS TO CNT /hpf (0-5)
[2020-12-05 07:34] LABS: Mucus Urine TRACE /hpf
[2020-12-05 07:35] LABS: Add Urine Culture? Yes; Trichomonas Urine 1+ /hpf
[2020-12-05 07:36] LABS: Amphetamines Screen Urine Negative (Negative); Barbiturates Screen Urine Negative (Negative); Benzodiazepines Screen Urine Positive (Negative); Cocaine Screen Urine Negative (Negative); Opiate Screen Urine Negative (Negative); PCP Screen Urine Negative (Negative); THC Screen Urine Positive (Negative)
--- NOTE | 2020-12-05 13:06 | PM.NHP ---
Providers/Chief Complaint Admitting Physician: Dewayne Puga MD Primary Care Provider: Sharon Jenkins DO Chief Complaint: 96HR HPI NPU History of Present Illness Jonna Zaidi is a 45 year old female who presented to the emergency department the following report: Chief Complaint: Psychiatric Symptoms Stated Complaint: 96HR Time Seen by Provider: 12/04/20 20:22 Source: patient and police Mode of arrival: ambulatory History of Present Illness: HPI Narrative: This is a 45-year-old female who was brought in by law enforcement with a 96-hour court-ordered hold. She was brought in for psychiatric evaluation due to symptoms that appear to be manic. When I spoke to her she said she is , she has been since May and is yet to see an fisher seal for this. She also complains of right ankle pain. She feels her ankle is broken. On arrival to the emergency department she was laughing maniacally. According to the affidavit that was brought in by the lawyer she had claimed that she was Shirley the mother tushar Laura. She was very loud in the emergency department, was rude to the line commercial loan collection officer that was with her, calling him an idiot. Her family states that she has been off her medications for bipolar disorder. complaint: altered mental status Duration: constant History of same: Yes Context: not taking psychiatric medications Associated symptoms: Reports delusions Treatments prior to arrival: placed on mental health hold. She was admitted to the neuropsychiatric unit for definitive treatment of those issues. Today she presents quite animated and psychotic. She is remodeling her ankle and her believe that she is . 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 She is also fixated on her ankle/foot injury and wanting a crutch and not willing to accept the walker that we and PT has proposed. We a long discussion about the risks of having a crutch on the unit like this but she is not open to reason. She denies having any problems, denies any reason to be hospitalized and reports having no idea why she is been put on a 96-hour hold. As above she has multiple delusions that are fixed and has no real connection to reality at this moment, surrounding specific issues. She denies any significant changes since her last hospitalization and excerpt of her last day is included below for context. She was unwilling to answer questions reviewing her history. Her UDS was positive for cannabis and benzodiazepines. Per her 12/29/2019 [facility] inpatient eval: History of Present Illness Jonna Zaidi is a 44 year old female who presents today very resistant to the interview. She was not interested in having a conversation or allowing this database report writer to give a full evaluative process. We discussed the purpose of her visit, and she very clearly, adamantly, and angrily communicated that she brought herself here. However, we acknowledged that she is on a 96-hour hold and people have filled out affidavits. She endorsed that she needed to go home, and this database report writer acknowledged to her that her one vehicle to go home was for her to talk with me and explain the circumstances that brought her here. I offered to her that I would be very open minded and open to the possibility of this being a quick process if the information moves us in that direction, however, she was not willing to engage in the conversation. I asked if she was interested in initiating some medication to help with whatever symptoms led to her bringing herself here, and she was resistant and rejected that approach. Meds NPU Home Medications Medication Instructions Recorded Confirmed Last Taken Type fblhzrp-vrtlspkwnwilw-etpeisle 250 2 tab PO DAILY PRN tab 11/03/19 12/02/19 Unknown History mg-250 mg-65 mg tablet bupropion HCl 150 mg 24 hr tablet, 150 mg PO QAM 11/03/19 12/02/19 Unknown History extended release metformin 500 mg tablet,extended 500 mg PO DAILY 11/03/19 12/02/19 Unknown History release 24 hr topiramate 100 mg tablet 100 mg PO DAILY #30 tab 12/02/19 12/29/19 Unknown Rx levothyroxine 137 mcg capsule 137 mcg PO DAILY #30 cap 12/03/19 12/29/19 Unknown Rx Maxalt-PERSONNEL PSYCHOLOGIST See Rx Instructions .ROUTE 12/29/19 12/29/19 Unknown History .COMPLEX PRN MDD 3 tablets Allergies Allergy/AdvReac Type Severity Reaction Status Date / Time metronidazole [From Flagyl] Allergy ADR-Itching Verified 12/28/19 21:49 Sulfa (Sulfonamide Allergy ALGY-Bliste Verified 12/28/19 21:49 Antibiotics) r sumatriptan [From Imitrex] Allergy ALGY-Rash Verified 12/28/19 21:49 PFSH NPU PFSH: Medical History Endometriosis Hypothyroidism IBS (irritable bowel syndrome) Migraine Surgical History S/P appendectomy S/P cholecystectomy S/P endometrial ablation S/P foot surgery S/P sinus surgery S/P tonsillectomy Family History Grandmother Dementia Stroke Cancer Mother Hypertension Father Hypertension Grandfather Diabetes Social History Smoking and tobacco status: never smoked Alcohol intake: current Alcohol intake frequency: holidays/special occasions only History of recent travel: No Meds NPU Home Medications Medication Instructions Recorded Confirmed Last Taken Type levothyroxine 150 mcg capsule 150 mcg PO DAILY 14 Days #14 cap 07/03/20 12/05/20 09/14/20 Rx hydrochlorothiazide 25 mg tablet 25 mg PO QAM #30 tab 07/21/20 12/05/20 09/13/20 Rx bupropion HCl 150 mg tablet,12 hr 150 mg PO QAM #30 tab 09/18/20 12/05/20 Unknown Rx sustained-release hydroxyzine pamoate 50 mg capsule 50 mg PO BID PRN #60 cap 09/18/20 12/05/20 Unknown Rx topiramate 100 mg tablet 100 mg PO .qhs #30 tab 09/18/20 12/05/20 Unknown Rx topiramate 25 mg tablet 25 mg PO .qhs #30 tab 09/18/20 12/05/20 Unknown Rx levocetirizine 5 mg tablet 5 mg PO DAILY #90 tab 11/09/20 12/05/20 Unknown Rx Allergies Allergy/AdvReac Type Severity Reaction Status Date / Time codeine Allergy ADR-Heartbu Verified 12/04/20 20:36 [From Tylenol-Codeine #3] rn metronidazole [From Flagyl] Allergy ADR-Itching Verified 12/04/20 20:36 Sulfa (Sulfonamide Allergy ALGY-Bliste Verified 12/04/20 20:36 Antibiotics) r sumatriptan [From Imitrex] Allergy ALGY-Rash Verified 12/04/20 20:36 acetaminophen AdvReac Mild ADR-Heartbu Verified 12/05/20 10:04 [From Tylenol-Codeine #3] rn PFSH NPU PFS: Medical History (Updated 12/06/20 @ 11:19 by Dewayne Puga MD) Bipolar disorder, in partial remission, most recent episode depressed Endometriosis Hypothyroidism IBS (irritable bowel syndrome) Migraine Surgical History (Reviewed 12/05/20 @ 11:48 [place] Jon[place] Manuel [place] [facility] [place] S/P appendectomy S/P cholecystectomy S/P endometrial ablation S/P foot surgery S/P sinus surgery S/P tonsillectomy Family History (Reviewed 12/05/20 @ 11:48 by Jonatan Manuel [place] [facility] [place] Grandmother Dementia Stroke Cancer Mother Hypertension Father Hypertension Grandfather Diabetes Cancer Social History (Reviewed 12/05/20 @ 11:48 by Jonatan Manuel [place], [facility] [place] Smoking and tobacco status: current every day smoker cigarettes Packs smoked per day: 0.25 and e-cigarettes E-Cigarette Details: e-cigarette E-cig/vape details: 3 puffs 3-4 times per day Quit status (tobacco): quit date established Planned quit date: 03/02/20 Second hand smoke exposure: Yes (boyfriend is quiting with her.) Alcohol intake: current Alcohol intake frequency: holidays/special occasions only Marital status: History of recent travel: Yes (travel to [place] last week ) Current gender identity: Female Mental Status Exam MSE Comments: This is an obese versus morbidly obese, white female in hospital scrubs with adequate grooming and eye contact. No abnormal movements, except for significant psychomotor agitation. Mostly uncooperative with exam in moderate to severe distress. Speech was increased rate and volume. Mood described as fine I will need to be here; affect angry and irritable. Thought process, mostly organized. Thought content: She denied suicidal or homicidal ideation, there were no delusions reported but clear paranoid and somatic delusions reported including the . Attention and concentration appeared intact, and memory was unreliable, but none were formally tested. She is alert and oriented to person and place. Insight and judgment are impaired, impulse control is impaired. Vitals/I&O/Wt Last Vital Signs Temp 98.2 F 12/05/20 13:53 Pulse 92 12/05/20 13:53 Resp 18 12/05/20 13:53 BP 141/88 12/05/20 13:53 Pulse Ox 94 12/05/20 13:53 Weight last 48 hrs Weight 108.862 kg Data NPU : 12/04/20 21:10 12/04/20 21:10 A&P Assessment and plan (1) Fracture of distal end of fibula: Status: Acute Qualifiers: Encounter type: initial encounter Fracture morphology: unspecified fracture morphology Fracture type: closed Laterality: right Qualified Code(s): S82.831A - Other fracture of upper and lower end of right fibula, initial encounter for closed fracture (2) Seasonal allergies: Status: Acute (3) Nicotine dependence, cigarettes, uncomplicated: Status: Chronic (4) Anxiety: Status: Chronic (5) Syncope and collapse: Status: Acute (6) Axillary nerve palsy: Status: Acute (7) Leg edema: Status: Acute (8) Acute psychosis: Status: Acute (9) Nicotine dependence, cigarettes, with unspecified nicotine-induced disorders: Status: Acute (10) Bipolar disorder: Status: Acute (11) Hypothyroidism: Status: Acute Qualifiers: Hypothyroidism type: unspecified Qualified Code(s): E03.9 - Hypothyroidism, unspecified (12) Cannabis abuse: Status: Acute Additional A&P Information This is a 45-year-old white female with a long history of mental health issues with past diagnoses of bipolar disorder with psychosis who presents with delusions, agitation and uncooperative with the inpatient providers. 1. Continue current medication. We will speak with outpatient providers to be collateral information on previous antipsychotic medications. Unfortunately she might not cooperate to get to a 21-day hold situation. It is unclear whether this represents a general psychotic break or whether there was some substance involved i.e. the benzodiazepines or cannabis 2. Continue every 15 minute checks for safety. 3. Encourage individual, group and milieu therapies. 4. Encourage sober living treatment after discharge at the highest level of care to which he is willing to commit. Involuntary Hold Information 96 Hour Hold: 96 Hour Involuntary Admission: Yes 96 Hour Hold Ending Date: 12/08/20 96 Hour Hold Ending Time: 20:35 Attestations NPU Medical Necessity Statement*: Inpatient hospitalization is medically necessary and the clinically appropriate intervention at this time. We will monitor medications and make changes as indicated. Patient will be in the hospital for over two midnights. Likely length of stay 3 to 5 days. Coding Level of Care Code Acute Synthetic Filament Spinner for Chg Fwd Diagnoses Fracture of distal end of fibula S82.831A Encounter type: initial encounter Fracture morphology: unspecified fracture morphology Fracture type: closed Laterality: right Seasonal allergies J30.2 Nicotine dependence, cigarettes, uncomplicated F17.210 Anxiety F41.9 Syncope and collapse R55 Axillary nerve palsy G54.0 Leg edema R60.0 Acute psychosis F23 Nicotine dependence, cigarettes, with unspecified nicotine-induced disorders F17.219 Bipolar disorder F31.9 Hypothyroidism E03.9 Hypothyroidism type: unspecified Cannabis abuse F12.10
[2020-12-05 13:53] VITALS: BP 141/88; PULSE 92; RESP 18; TEMP 36.8; O2SAT 94
[2020-12-05] MEDS: acetaminophen 325 mg Tablet 650 MG PO (14:37)
[2020-12-05 21:12] VITALS: BP 152/87; PULSE 98; RESP 14; TEMP 37; O2SAT 96
[2020-12-05] MEDS: hyDROXYzine 25 mg Capsule 50 MG PO (21:12)
[2020-12-05] MEDS: topiramate 100 mg Tablet PO (21:12)
[2020-12-05] MEDS: topiramate 25 mg Tablet PO (21:13)
[2020-12-05] MEDS: trazodone 50 mg Tablet PO (21:13)
--- NOTE | 2020-12-05 21:25 | PC.NURSE ---
PT LOUDLY VOICING COMPLAINTS OF BEING HELD AGAIST MY WILL . VISTARIL 50MG PO GIVEN.
--- NOTE | 2020-12-05 22:30 | PC.NURSE ---
pt continues to be very loud despite being asked several times to lower her voice because she's waking patients. pt voiced non-concernment.
--- NOTE | 2020-12-06 02:10 | PC.NURSE ---
PM Assessment pt is accompanied with a 1:1 d/t a foot injury requiring walker, Pt states she is in pain rated a 7 on a 1-10 scale, med nurse notified, telephone supervisor administered motrin. Pt has a large bruise on her left knee cap with scrapes, pt requested nurse to put a bandage over it to keep the pants from rubbing against it. Bandage placed over the surface, no drainage or bleeding noted. While placing bandage, RN noticed foul odor from the patient's abdominal fold with very noticeable vaginal odor with a moderate amount of dark brown discharge. Physician notified of lab results of poss UTI, appearance of discharge,and escoriation beneath the abdominal fold, Physician said he would review the lab result, physician ordered nystatin powder tid,the area was cleaned by nurse, instadry sheet applied, nystatin powder applied, and pt educated regarding prevention of skin breakdown. PT is visibly upset, after physician left, pt believes she is d/t physician informing this patient that she was no longer . Pt is tearful, angry, and loudly crying, believes the doctor is lying to her, stating, I can feel that baby still moving, he is wrong, I am not fucking crazy. Pt denies SI/HI, confirms AH-voices I have mom hearing, so I am hearing what I am hearing. Pt denies HI at this time. Pt is very loud, laughs manicly at inappropriate times, throwing her head back in an animated fashion. Pt requires multiple redirection attempts, and reinforcement of behavioral expectations on this unit. She is pleasant with most interacts, however, she will approach the desk, narrow her eyes, and with anger in her voice says If I am going to be forced to stay here then I am going to walk pissed off with my boot down this hallway. Pt was reminded that this is 0300 in the morning, the level of noise needs to kept a a lower level to allow others to rest. Pt says, I have to prove what I have to prove so I can prove to that doctor that I can get out of here and take care of myself. Pt has required constant redirection from both nurses. She continues to be loud. Pt was moved to 170, to prevent disturbing other patients. She says, I am a night owl, I am not going to sleep. Pt verbalizes her desire to go home. She continually walked the hallway, pacing from dayroom to room. She remains manic, intrusive, attention seeking, and labile. Will continue to observe pt behavior.
[2020-12-06] MEDS: OLANZapine 5 mg ODT PO (03:07)
--- NOTE | 2020-12-06 03:08 | PC.NURSE ---
pt continues to exhibit anxiety concerning safety and security of her apartment, that the flower cutter wounldn't let her turn off her computer, or to even grab her glasses. Vistaril 50mg po given.
[2020-12-06] MEDS: nystatin powder 15 gm Btl 1 APPLIC TOPICAL ×4 (03:11→21:20)
[2020-12-06] MEDS: ibuprofen 600 mg Tablet PO ×2 (03:18→13:35)
[2020-12-06] MEDS: lanolin oint 7 gm 1 APPLIC TOPICAL (03:20)
[2020-12-06] MEDS: hydroCHLOROthiazide 25 mg Tablet PO (05:10)
[2020-12-06] MEDS: buPROPion SR (12 HR) 150 mg Tablet PO (05:10)
[2020-12-06] MEDS: levothyroxine 75 mcg Tablet 150 MCG PO (05:10)
--- NOTE | 2020-12-06 05:53 | PC.NURSE ---
PT HAS NOT SLEPT THIS NIGHT DESPITE BEING GIVEN VISTARIL AT 2112 AND ZYPREXA AT 0307. PT HAS PACED HALLWAY OR SAT IN DAY ROOM WATCHING TV OR SAT ON HER BED LOUDLY VOICING HER DISCONTENT AT BEING FORCED TO STAY HERE !
[2020-12-06 06:00] VITALS: BP 129/84; PULSE 78; RESP 15; TEMP 36.2; O2SAT 97
[2020-12-06] MEDS: water for injection-sterile 10 ML (10:39)
[2020-12-06] MEDS: ziprasidone 20 mg/mL SDV (10:39)
--- NOTE | 2020-12-06 10:46 | PC.NURSE ---
BEHAVIOR/GEODON INJECTION PT VERY AGITATED ABOUT NOT BEING DISCHARGED. YELLING & CURSING LOUDLY FROM HER ROOM SAYING I WANT THE FUCK OUT OF HERE AND TO GO HOME NOW! NURSING STAFF AND PHYSICIAN IN HALLWAY AND ATTEMPT TO EDUCATE PT THAT SHE WILL NOT BE DISCHARGED TODAY, PT STARTED TO SOB LOUDLY FROM HER ROOM. VERBAL ORDER GIVEN BY Suellen GARAY TO GIVE GEODON IM BID PRN FOR EXTREME AGITATION/AGGRESSION. GEODON 20 MG GIVEN IM IN LEFT DELTOID. PT TOOK SHOT WITHOUT INCIDENT. STAFF EDUCATED PT ON MED GIVEN & PT STATED LONG IT DOESN'T HURT THE BABY. PT CONT TO BE 1:1 WITH STERILE TECH AT THIS TIME.
--- NOTE | 2020-12-06 12:20 | PC.PT ---
Per nursing report, pt is ambulating w/ CAm boot and no AD. Stated she was awake all night and finally sleeping, will re-eval if necessary. Pt is going by Fely.
[2020-12-06 14:00] VITALS: BP 135/89; PULSE 88; RESP 20; TEMP 36.5; O2SAT 96
--- NOTE | 2020-12-06 16:28 | P.PN_ITS ---
Subjective NPU Subjective: Interval history: Jonna who prefers to be called Fely, presents today continuing to be resistant to considering medication, and very easily agitated and upset. She continues to maintain that she just needs to go home and that there is nothing wrong with her. She continues to hold the fixed belief that she is 7 months and is not showing secondary to being obese. She is very guarded with her delusional thinking secondary to some insight into the fact that this process description writer does not believe that she is the mother of Valentín taylor. We continue to discuss our belief that medications would assist her in her illness as she does not believe she has an illness. We discussed the fact that without medication we would not feel safe for discharge. She is aware that she is on a 96-hour hold. Mental Status Exam MSE Comments: This is an obese versus morbidly obese, white female in hospital scrubs with adequate grooming and eye contact. No abnormal movements, except for significant psychomotor agitation. Mostly uncooperative with exam in moderate to severe distress. Speech was increased rate and volume, with frequent screaming episodes where she yells obscenities about this process description writer and that she wants this process description writer to just let me go home! . Mood described as fine; affect angry and irritable. Thought process, mostly organized. Thought content: She denied suicidal or homicidal ideation, there were no delusions reported but clear paranoid and somatic delusions reported including the fact that she is (her belief). Attention and concentration appeared intact, and memory was unreliable, but none were formally tested. She is alert and oriented to person and place. Insight and judgment are impaired, impulse control is impaired. Vitals/I&O/Wt Last Vital Signs Temp 100.1 F H 12/06/20 22:00 Pulse 85 12/06/20 22:00 Resp 20 H 12/06/20 14:00 BP 130/90 12/06/20 22:00 Pulse Ox 96 12/06/20 22:00 12/06/20 14:59 Intake Total 0.017 / 0.017 Balance 0.017 / 0.017 Data NPU : 12/04/20 21:10 12/04/20 21:10 Micro: Microbiology 12/05/20 06:45 Urine Culture - Final Urine,Clean Catch Microbiology 12/05/20 06:45 Urine,Clean Catch Urine Culture - Final A&P Additional A&P Information (1) Fracture of distal end of fibula: (2) Seasonal allergies: (3) Nicotine dependence, cigarettes, uncomplicated: (4) Anxiety: (5) Syncope and collapse: (6) Axillary nerve palsy: (7) Leg edema: (8) Acute psychosis: (9) Nicotine dependence, cigarettes, with unspecified nicotine-induced disorders: (10) Bipolar disorder: (11) Hypothyroidism: (12) Cannabis abuse: Additional A&P Information This is a 45-year-old white female with a long history of mental health issues with past diagnoses of bipolar disorder with psychosis who presents with delusions, agitation and uncooperative with the inpatient providers. 1. Continue current medication. We will speak with outpatient providers to be collateral information on previous antipsychotic medications. Unfortunately she might not cooperate which will lead to a 21-day hold situation. It is unclear whether this represents a general psychotic break or whether there was some substance involved i.e. the benzodiazepines or cannabis. 2. Continue every 15 minute checks for safety. 3. Encourage individual, group and milieu therapies. 4. Encourage sober living treatment after discharge at the highest level of care to which he is willing to commit. Involuntary Hold Information 96 Hour Hold: 96 Hour Involuntary Admission: Yes 96 Hour Hold Ending Date: 12/08/20 96 Hour Hold Ending Time: 20:35 Attestations NPU Medical Necessity Statement*: Inpatient hospitalization is medically necessary and the clinically appropriate intervention at this time. We will monitor medications and make changes as indicated. Likely length of stay 3 to 5 days. Coding Level of Care Code Acute Rail Car Welder for Snehal Hyde
--- NOTE | 2020-12-06 17:30 | PC.RESP ---
Smoking Cessation information sent to patient.
[2020-12-06] MEDS: acetaminophen 325 mg Tablet 650 MG PO (20:32)
[2020-12-06] MEDS: topiramate 100 mg Tablet PO (20:32)
[2020-12-06] MEDS: topiramate 25 mg Tablet PO (20:32)
[2020-12-06 22:00] VITALS: BP 130/90; PULSE 85; TEMP 37.8; O2SAT 96
[2020-12-07] MEDS: acetaminophen 325 mg Tablet 650 MG PO ×4 (01:43→21:49)
[2020-12-07] MEDS: hyDROXYzine 25 mg Capsule 50 MG PO ×2 (01:44→22:21)
--- NOTE | 2020-12-07 01:48 | PC.NURSE ---
Vistaril 50 mg po given for complaint of insomnia.
[2020-12-07] MEDS: OLANZapine 5 mg ODT PO (02:42)
--- NOTE | 2020-12-07 04:45 | PC.NURSE ---
PM assessment Pt was pleasant early in the shift, accompanied by 1:1 sitter, patient is still delusional, states she is still , her mother does not love her, everyone failed her. she is tearful one moment, and laughing hysterically the next, med nurse provided prn medications to help with the escalation of her behavior, she is upset, wants to go home. skin under abdominal fold is still red and irritated, nystatin applied, dying sheets placed, and she is still having discharge that is brown from her vagina that has a strong odor. Pt expressed that she wants to go home, says she is going to peter this place for holding her against her will, her mood cycles rapidly, and she continues to become agitated Pt reports pain in the shoulder and her foot, elevated the foot, and put ice on it for 20 min. She stayed in her room until it came off. she is now in tears, and can be heard from the nurses station, med nurse is with her now
[2020-12-07] MEDS: haloperidol 5 mg Tablet PO (04:54)
--- NOTE | 2020-12-07 05:17 | PC.NURSE ---
At 0140 the patient reported difficulty trying to sleep. Offered Vistaril 50 mg po and the patient agreed. At 0230 the patient was shouting, restless, pacing. The patient was given Zyprexa 5 mg po. The patient has not been able to sleep. At 0430 the patient was shouting, had delusions of , crying, agitated. Haldol 5 mg po given.
[2020-12-07 05:41] VITALS: BP 141/87; PULSE 88; TEMP 36.8; O2SAT 97
[2020-12-07] MEDS: levothyroxine 150 mcg Tablet PO (06:10)
[2020-12-07] MEDS: buPROPion SR (12 HR) 150 mg Tablet PO (06:10)
[2020-12-07] MEDS: nystatin powder 15 gm Btl 1 APPLIC TOPICAL ×3 (09:44→21:11)
[2020-12-07 12:46] VITALS: BP 132/86; PULSE 96; RESP 16; TEMP 36.2; O2SAT 95
[2020-12-07] MEDS: ibuprofen 600 mg Tablet PO (13:58)
[2020-12-07] MEDS: ARIPiprazole 10 mg Tablet PO (18:10)
--- NOTE | 2020-12-07 18:47 | PM.NPN ---
Subjective NPU Subjective: Interval history: Fely presents today reporting that she is really upset because of the legacy her mother has left her. She says that her mother is bipolar and that that has been passed on to her and her siblings. She was one of her siblings because of it. She is very tearful and talking about this whole issue is her mom's well but she really could not elaborate what exactly she meant by that. She reports that she was to go home if she can sing every day. I was able to discuss with her the need for an antipsychotic specifically Abilify. We discussed the risks, benefits and alternatives of starting her on 10 mg now and starting every morning and she understood and agreed proceed as is documented in this note. Mental Status Exam MSE Comments: This is an obese versus morbidly obese, white female in hospital scrubs with adequate grooming and eye contact. No abnormal movements, except for less psychomotor agitation. More cooperative with exam in mild to moderate distress. Speech was more normal rate and volume, with irritability but no screaming episodes where she yells obscenities about this junior underwriter. Mood described as I just want to go home; affect angry and irritable, but less voracious. Thought process, mostly organized. Thought content: She denied suicidal or homicidal ideation, there were no delusions reported but clear paranoid and somatic delusions reported including the fact that she is (her belief) she tried very hard to state that she was not . Attention and concentration appeared intact, and memory was unreliable, but none were formally tested. She is alert and oriented to person and place. Insight and judgment are impaired, impulse control is impaired. Vitals/I&O/Wt Last Vital Signs Temp 98.3 F 12/07/20 21:39 Pulse 84 12/07/20 21:39 Resp 18 12/07/20 21:39 BP 142/84 12/07/20 21:39 Pulse Ox 96 12/07/20 21:39 Data NPU : 12/04/20 21:10 12/04/20 21:10 A&P Additional A&P Information (1) Fracture of distal end of fibula: (2) Seasonal allergies: (3) Nicotine dependence, cigarettes, uncomplicated: (4) Anxiety: (5) Syncope and collapse: (6) Axillary nerve palsy: (7) Leg edema: (8) Acute psychosis: (9) Nicotine dependence, cigarettes, with unspecified nicotine-induced disorders: (10) Bipolar disorder: (11) Hypothyroidism: (12) Cannabis abuse: Additional A&P Information This is a 45-year-old white female with a long history of mental health issues with past diagnoses of bipolar disorder with psychosis who presents with delusions, agitation and uncooperative with the inpatient providers. 1. Continue current medication. After significant hesitation and frustration with the request she agreed to a trial of Abilify 10 mg p.o. every morning. 2. Continue every 15 minute checks for safety. 3. Encourage individual, group and milieu therapies. 4. Encourage sober living treatment after discharge at the highest level of care to which he is willing to commit. 5. We will likely submit 21-day hold tomorrow. Involuntary Hold Information 96 Hour Hold: 96 Hour Involuntary Admission: Yes 96 Hour Hold Ending Date: 12/08/20 96 Hour Hold Ending Time: 20:35 Attestations NPU Medical Necessity Statement*: Inpatient hospitalization is medically necessary and the clinically appropriate intervention at this time. We will monitor medications and make changes as indicated. Likely length of stay 3 to 5 days. Coding Level of Care Code Acute Hvac Service Tech for Snehal Hyde
[2020-12-07] MEDS: topiramate 25 mg Tablet PO (21:10)
[2020-12-07] MEDS: topiramate 100 mg Tablet PO (21:10)
[2020-12-07 21:39] VITALS: BP 142/84; PULSE 84; RESP 18; TEMP 36.8; O2SAT 96
--- NOTE | 2020-12-07 22:24 | PC.NURSE ---
Patient requested Visteril 50mg for anxiety and to help with her seasonal allergies. 50 mg Visteril given.
[2020-12-08] MEDS: buPROPion SR (12 HR) 150 mg Tablet PO (05:06)
[2020-12-08] MEDS: levothyroxine 150 mcg Tablet PO (05:06)
[2020-12-08] MEDS: ibuprofen 600 mg Tablet PO ×3 (05:09→22:23)
[2020-12-08 06:00] VITALS: BP 169/83; PULSE 90; RESP 18; TEMP 36.8; O2SAT 95
[2020-12-08] MEDS: nystatin powder 15 gm Btl 1 APPLIC TOPICAL ×2 (08:20→14:37)
[2020-12-08] MEDS: ARIPiprazole 10 mg Tablet PO (08:20)
--- NOTE | 2020-12-08 09:23 | PC.SOCIAL ---
*IMM* No IMM needed she will be on a 21 day hold, was on a 96 hr hold.
[2020-12-08] MEDS: acetaminophen 325 mg Tablet 650 MG PO ×2 (11:46→19:10)
[2020-12-08 14:00] VITALS: BP 144/89; PULSE 83; RESP 16; TEMP 36.7; O2SAT 95
--- NOTE | 2020-12-08 14:57 | PM.NPN ---
Subjective NPU Subjective: Interval history: Fely presented today reporting that she is doing well medication and staff reporting that she is showing some increased restraint in situations where she is annoyed. She presents expressing a desire to leave and is frustrated by our conversation about wanting to see her stable on the medication a little longer given her presentation she reports that she is taking the medication and she plans to take it however this is only her been a compliant to medication. We discussed signs of improvement and the possibility for discharge in the future would likely the change demonstrated Mental Status Exam MSE Comments: This is an obese versus morbidly obese, white female in hospital scrubs with adequate grooming and eye contact. No abnormal movements, except for less psychomotor agitation. More cooperative with exam in mild distress. Speech was more normal rate and volume. Mood described as I just want to go home; affect frustrated. Thought process, mostly organized. Thought content: She denied suicidal or homicidal ideation, there were no delusions reported but she is seeming to be more open about her somatic delusional thinking able to hear about concerns about her thinking she is . Attention and concentration appeared intact, and memory was unreliable, but none were formally tested. She is alert and oriented to person and place. Insight and judgment are improving, impulse control is improving. Vitals/I&O/Wt Last Vital Signs Temp 98.1 F 12/08/20 14:00 Pulse 83 12/08/20 14:00 Resp 16 12/08/20 14:00 BP 144/89 12/08/20 14:00 Pulse Ox 95 12/08/20 14:00 Data NPU : 12/04/20 21:10 12/04/20 21:10 A&P Additional A&P Information (1) Fracture of distal end of fibula: (2) Seasonal allergies: (3) Nicotine dependence, cigarettes, uncomplicated: (4) Anxiety: (5) Syncope and collapse: (6) Axillary nerve palsy: (7) Leg edema: (8) Acute psychosis: (9) Nicotine dependence, cigarettes, with unspecified nicotine-induced disorders: (10) Bipolar disorder: (11) Hypothyroidism: (12) Cannabis abuse: Additional A&P Information This is a 45-year-old white female with a long history of mental health issues with past diagnoses of bipolar disorder with psychosis who presents with delusions, agitation and uncooperative with the inpatient providers. 1. Continue current medication. 2. Continue every 15 minute checks for safety. 3. Encourage individual, group and milieu therapies. 4. Encourage sober living treatment after discharge at the highest level of care to which he is willing to commit. 5. 21-day hold submitted. She is showing some improvement is possible that if the antibody avoid the 21-day commitment. Involuntary Hold Information 96 Hour Hold: 96 Hour Involuntary Admission: Yes 96 Hour Hold Ending Date: 12/08/20 96 Hour Hold Ending Time: 20:35 Attestations NPU Medical Necessity Statement*: Inpatient hospitalization is medically necessary and the clinically appropriate intervention at this time. We will monitor medications and make changes as indicated. Likely length of stay 3 to 5 days. Coding Level of Care Code Acute Emergency Management Program Specialist for Snehal Hyde
[2020-12-08] MEDS: hyDROXYzine 25 mg Capsule 50 MG PO (19:54)
--- NOTE | 2020-12-08 19:54 | PC.NURSE ---
ROSAS Haley Patient at nurses station stating she will be needing something for her anxiety this evening. States it has been a day and she is really feeling it . Renétaril given - see MAR. Will follow up for effectiveness.
[2020-12-08] MEDS: topiramate 100 mg Tablet PO (20:05)
[2020-12-08] MEDS: topiramate 25 mg Tablet PO (20:05)
[2020-12-08] MEDS: trazodone 50 mg Tablet PO (20:05)
--- NOTE | 2020-12-08 20:30 | PC.NURSE ---
PRN Follow Up Patient resting in bed with eyes closed at this time. Resp even and unlabored.
[2020-12-08 22:00] VITALS: BP 159/84; PULSE 92; RESP 18; TEMP 36.7; O2SAT 95
[2020-12-08] MEDS: SUMAtriptan 25 mg Tablet 50 MG PO (22:49)
[2020-12-09] MEDS: OLANZapine 5 mg ODT PO ×2 (00:23→23:23)
--- NOTE | 2020-12-09 00:23 | PC.NURSE ---
PRN GIVEN Patient stating she feels anxious and agitated that she cannot sleep, patient up and walking halls. prn given, see MAR. will monitor for effectiveness.
[2020-12-09] MEDS: acetaminophen 325 mg Tablet 650 MG PO ×3 (01:05→21:45)
--- NOTE | 2020-12-09 01:15 | PC.NURSE ---
PRN FOLLOW UP Patient lying in bed with eyes closed. Resp even and unlabored.
[2020-12-09] MEDS: ibuprofen 600 mg Tablet PO ×3 (03:41→19:30)
[2020-12-09] MEDS: buPROPion SR (12 HR) 150 mg Tablet PO (05:12)
[2020-12-09] MEDS: levothyroxine 150 mcg Tablet PO (05:12)
[2020-12-09 06:00] VITALS: BP 134/85; PULSE 79; RESP 18; TEMP 37; O2SAT 95
[2020-12-09] MEDS: ARIPiprazole 10 mg Tablet PO (08:08)
[2020-12-09] MEDS: nystatin powder 15 gm Btl 1 APPLIC TOPICAL ×2 (08:09→21:09)
[2020-12-09 13:24] VITALS: BP 134/86; PULSE 79; RESP 18; TEMP 37.1
--- NOTE | 2020-12-09 14:33 | PC.NURSE ---
refused scheduled Nystatin powder
[2020-12-09] MEDS: ARIPiprazole Maintena 400 MG IM (15:49)
--- NOTE | 2020-12-09 15:49 | PC.NURSE ---
ABIALEM MAINTENA 400 MG GIVEN IM ORDERED BY PHYSICIAN. INJECTION GIVEN IN RIGHT DELTOID. PT EDUCATED ON MED GIVEN & VERBALIZED UNDERSTANDING. LOT [id number] EXP OCT 2022
--- NOTE | 2020-12-09 16:13 | PM.NPN ---
Subjective NPU Subjective: Interval history: Jonna presents today reporting that she is feeling better. She continues to be able to talk about the without getting worked up but is not able to completely stay in reality in relation to it. She reports that she had a miscarriage last night because of something in the toilet when she went to urinate. She denies any blood or large material and when I challenged the fact that that would be impossible if she was 7 months she then changed the narrative and said that the dates were wrong and she actually must have gotten in September. We did discuss the risk-benefit and alternatives of starting Abilify Maintena so that we would have adherence to medication and she understood and agreed to proceed as is documented in this note. Mental Status Exam MSE Comments: This is an obese versus morbidly obese, white female in hospital scrubs with adequate grooming and eye contact. No abnormal movements, except for less psychomotor agitation. More cooperative with exam in no acute distress. Speech was more normal rate and volume. Mood described as I am okay; affect more calm. Thought process, mostly organized. Thought content: She denied suicidal or homicidal ideation, there were no delusions reported but she is seeming to be more open about her somatic delusional thinking able to hear about concerns about her thinking she is . Attention and concentration appeared intact, and memory was unreliable, but none were formally tested. She is alert and oriented to person and place. Insight and judgment are improving, impulse control is improving. Vitals/I&O/Wt Last Vital Signs Temp 98.2 F 12/09/20 22:00 Pulse 87 12/09/20 22:00 Resp 18 12/09/20 22:00 BP 153/94 12/09/20 22:00 Pulse Ox 95 12/09/20 22:00 Data NPU : 12/04/20 21:10 12/04/20 21:10 A&P Additional A&P Information (1) Fracture of distal end of fibula: (2) Seasonal allergies: (3) Nicotine dependence, cigarettes, uncomplicated: (4) Anxiety: (5) Syncope and collapse: (6) Axillary nerve palsy: (7) Leg edema: (8) Acute psychosis: (9) Nicotine dependence, cigarettes, with unspecified nicotine-induced disorders: (10) Bipolar disorder: (11) Hypothyroidism: (12) Cannabis abuse: Additional A&P Information This is a 45-year-old white female with a long history of mental health issues with past diagnoses of bipolar disorder with psychosis who presents with delusions, agitation and uncooperative with the inpatient providers. 1. Continue current medication. We will initiate the Abilify Maintena 400 mg IM injection either today or tomorrow. 2. Continue every 15 minute checks for safety. 3. Encourage individual, group and milieu therapies. 4. Encourage sober living treatment after discharge at the highest level of care to which he is willing to commit. 5. She is showing some improvement is possible that we may be able to avoid the 21-day commitment and hearing. Involuntary Hold Information 96 Hour Hold: 96 Hour Involuntary Admission: Yes 96 Hour Hold Ending Date: 12/08/20 96 Hour Hold Ending Time: 20:35 Attestations NPU Medical Necessity Statement*: Inpatient hospitalization is medically necessary and the clinically appropriate intervention at this time. We will monitor medications and make changes as indicated. Likely length of stay 2-4 days. Coding Level of Care Code Acute Senior Accountant for Snehal Hyde
[2020-12-09] MEDS: hyDROXYzine 25 mg Capsule 50 MG PO (20:58)
[2020-12-09] MEDS: topiramate 25 mg Tablet PO (20:58)
[2020-12-09] MEDS: topiramate 100 mg Tablet PO (20:58)
[2020-12-09 22:00] VITALS: BP 153/94; PULSE 87; RESP 18; TEMP 36.8; O2SAT 95
[2020-12-09] MEDS: TRAMadol 50 mg Tablet PO (23:18)
--- NOTE | 2020-12-09 23:27 | PC.NURSE ---
5mg PO Zyprexa given for increased anxiety and escalating agitation.
--- NOTE | 2020-12-09 23:29 | PC.NURSE ---
At 19:30 600 mg PO Ibuprophen given for C/O right foot and left knee pain rated at a 7/10 on a 1/10 pain scale. At 21:45 650 mg PO Tylenol given for C/O right foot and left knee pain rated at a 6/10 on a 0/10 pain scale.
--- NOTE | 2020-12-09 23:51 | PC.NURSE ---
At 20:58 Visteril 50 mg PO given, per patient request for anxiety.
--- NOTE | 2020-12-10 00:10 | PC.NURSE ---
At 23:18 Patient was given Tramadol 50mg PO for right foot, left knee pain rated at 7/10 on a 0/10 pain scale. Pain reassessed at 23:48 rated at 2/10 on a 0/10 pain scale.
--- NOTE | 2020-12-10 00:15 | PC.NURSE ---
agitation/increased activity pt is visiting nurses station often, reports need for increased medication to sleep d/t agitation, irritability increasing, she is becoming more agitated. She reports a decrease in pain since receiving ultram.
[2020-12-10] MEDS: trazodone 50 mg Tablet PO (00:41)
[2020-12-10] MEDS: ibuprofen 600 mg Tablet PO ×2 (03:35→15:01)
--- NOTE | 2020-12-10 03:35 | PC.NURSE ---
600 mg Ibuprofen PO given for right foot pain and left knee pain. Also bag of Ice wrapped in a towel to apply to painful areas.
--- NOTE | 2020-12-10 04:00 | PC.NURSE ---
PRN Motrin/ice pack 0335-Pt given motrin for headache rated 8, pain right foot rated 3, both on 1-10 pain scale. pt reports sensitivity to light, and sitting right on top of her head. Ice placed on her foot for 20 min. 0402-pt reports decrease in foot pain to a 1 with the headache easing some. No other medication available to this patient on her MAR at this time, given ice pack for her head. which she kept on 5 min. Reporting small improvement
[2020-12-10] MEDS: acetaminophen 325 mg Tablet 650 MG PO ×3 (05:12→19:57)
[2020-12-10] MEDS: levothyroxine 150 mcg Tablet PO (05:13)
[2020-12-10] MEDS: buPROPion SR (12 HR) 150 mg Tablet PO (05:13)
[2020-12-10] MEDS: hydroCHLOROthiazide 25 mg Tablet PO (05:13)
[2020-12-10 05:36] VITALS: BMI 42.8
--- NOTE | 2020-12-10 05:36 | PC.NURSE ---
650mg Tylenol PO given for C/O migraine headache rated 6/10 on 0/10 pain scale.
--- NOTE | 2020-12-10 05:46 | PC.NURSE ---
At 00:41 patient given 50mg Trazadone for Insomnia.
[2020-12-10 06:00] VITALS: BP 144/88; PULSE 72; RESP 18; TEMP 36.8; O2SAT 91
[2020-12-10] MEDS: nystatin powder 15 gm Btl 1 APPLIC TOPICAL ×3 (08:12→21:04)
[2020-12-10] MEDS: ARIPiprazole 10 mg Tablet PO (08:12)
[2020-12-10] MEDS: TRAMadol 50 mg Tablet PO ×2 (08:16→16:17)
[2020-12-10 14:00] VITALS: BP 167/101; PULSE 88; RESP 16; TEMP 36.5; O2SAT 96
--- NOTE | 2020-12-10 16:25 | PM.NPN ---
Subjective NPU Subjective: Interval history: Jonna presents today as she has the past few days lobbying for discharge. Unfortunately she revealed today that she is planning on moving to [place] and I explained to her that he needed to arrange the injection location for follow-up as well as cross a few other t's and dot a few other i's. She then said that her plan was to be in [place] by 2021 which we discussed with a fairly long time from now into stage I is here stable here. She also is requesting a crutch or cane and a few other things prior to discharge. She had the Abilify Maintena injection he denies any issues from that. We discussed the need for her to take Abilify oral for about 12 additional days if we were to discharge her tomorrow. Mental Status Exam MSE Comments: This is an obese versus morbidly obese, white female in hospital scrubs with adequate grooming and eye contact. No abnormal movements except for mild gait instability with her boot. More cooperative with exam in no acute distress. Speech was normal rate and volume. Mood described as pretty good; affect euthymic. Thought process, mostly organized. Thought content: She denied suicidal or homicidal ideation, there were no delusions reported but she is seeming to be more open about her somatic delusional thinking able to hear about concerns about her thinking she is . Attention and concentration appeared intact, and memory was unreliable, but none were formally tested. She is alert and oriented to person and place. Insight and judgment are improving, impulse control is improving. Vitals/I&O/Wt Last Vital Signs Temp 98.1 F 12/10/20 21:30 Pulse 91 12/10/20 21:30 Resp 16 12/10/20 21:30 BP 135/88 12/10/20 21:30 Pulse Ox 96 12/10/20 21:30 Weight last 48 hrs Weight 108.862 kg Data NPU : 12/04/20 21:10 12/04/20 21:10 A&P Additional A&P Information (1) Fracture of distal end of fibula: (2) Seasonal allergies: (3) Nicotine dependence, cigarettes, uncomplicated: (4) Anxiety: (5) Syncope and collapse: (6) Axillary nerve palsy: (7) Leg edema: (8) Acute psychosis: (9) Nicotine dependence, cigarettes, with unspecified nicotine-induced disorders: (10) Bipolar disorder: (11) Hypothyroidism: (12) Cannabis abuse: Additional A&P Information This is a 45-year-old white female with a long history of mental health issues with past diagnoses of bipolar disorder with psychosis who presents with delusions, agitation and uncooperative with the inpatient providers. 1. Continue current medication. She did fine with the Abilify Maintena 400 mg IM injection yesterday at. 2. Continue every 15 minute checks for safety. 3. Encourage individual, group and milieu therapies. 4. Encourage sober living treatment after discharge at the highest level of care to which he is willing to commit. 5. She is showing some improvement is possible that we may be able to avoid the 21-day commitment and hearing. Involuntary Hold Information 96 Hour Hold: 96 Hour Involuntary Admission: Yes 96 Hour Hold Ending Date: 12/08/20 96 Hour Hold Ending Time: 20:35 Attestations NPU Medical Necessity Statement*: Inpatient hospitalization is medically necessary and the clinically appropriate intervention at this time. We will monitor medications and make changes as indicated. Likely length of stay 1-3 days. Coding Level of Care Code Acute Automation Controls Specialist for Snehal Hyde
--- NOTE | 2020-12-10 20:02 | PC.NURSE ---
PRN MED PT GIVEN 650MG TYLENOL FOR RIGHT KNEE PAIN RATED AT AN 8, WILL CONTINUE TO MONITOR.
--- NOTE | 2020-12-10 20:50 | PC.NURSE ---
PRN MED MED EFFECTIVE O S/S OF PAIN, WILL CONTINUE TO MONITOR.
[2020-12-10] MEDS: topiramate 100 mg Tablet PO (21:04)
[2020-12-10] MEDS: topiramate 25 mg Tablet PO (21:04)
[2020-12-10] MEDS: hyDROXYzine 25 mg Capsule 50 MG PO (21:11)
--- NOTE | 2020-12-10 21:13 | PC.NURSE ---
PRN MED PT GIVEN 50MG VISTARIL FOR ANXIETY, 0 S/S OF ANXIETY, WILL CONTINUE TO MONITOR.
[2020-12-10 21:30] VITALS: BP 135/88; PULSE 91; RESP 16; TEMP 36.7; O2SAT 96
--- NOTE | 2020-12-10 22:22 | PC.NURSE ---
PRN MED PT WITH O S/S OF ANXIETY, WILL CONTINUE TO MONITOR.
[2020-12-11] MEDS: trazodone 50 mg Tablet PO ×2 (00:18→01:07)
--- NOTE | 2020-12-11 00:20 | PC.NURSE ---
PRN MED PT GIVEN 50MG TRAZODONE FOR INSOMNIA, WILL CONTINUE TO MONITOR
[2020-12-11] MEDS: TRAMadol 50 mg Tablet PO (01:06)
[2020-12-11] MEDS: OLANZapine 5 mg ODT PO (01:07)
--- NOTE | 2020-12-11 01:08 | PC.NURSE ---
Addendum entered by Erica Bowman RN 12/11/20 01:51: PRN followup pt is resting in her bed, reports decrease of pain to a 3, she appear less agitated/anxious. Original Note: PRN'S GIVEN 2ND DOSE OF TRAZODONE 50MG PO, GIVEN TO HELP PATIENT REST, ULTRAM 50MG PO FOR PAIN OF 7 IN FX FOOT, AND ZYPREXA ZYDIS 5MG PO GIVEN FOR AGITATION WILL CONTINUE TO OBSERVE
--- NOTE | 2020-12-11 01:30 | PC.NURSE ---
Ice pack applied Removed walking boot, elevated patient's foot, applied ice pack, to help reduce minor swelling and relieve pain. will continue to observe patient
--- NOTE | 2020-12-11 01:53 | PC.NURSE ---
PM assessment Pt was pleasant early in the shift, however, as the evening progressed the patient experiences mood changes, she is tearful one moment, and laughing the next, med nurse provided prn medications to help with the escalation of her behavior.Pt says I am going home tomorrow and now I can not sleep. Trazodone 50 mg po has been given 2 times. No sleep resulted to this point. skin under abdominal fold is clear, intact, no redness noted,, nystatin applied, dying sheets placed to prevent skin breakdown. She has been to the nurses station repeatedly for medication, to request labels for her items, guillotine trimmer to help write her grocery list anything to get the attention of the nurses to the point of being intrusive. Clear, hard, expectations have to be set with this patient. When patient has to wait for her needs to be met, her mood escalates to irritability, she finds another reason to hit the call light, sending FIBER GLASS WORKER out of the room demanding nurse to wipe her butt when getting up off the toilet, rather than take care of her needs herself. Pt reports constant pain in her foot, medication, rest, ice, and elevation have been used. Pt reports some relief at this time. will continue to observe.
[2020-12-11] MEDS: buPROPion SR (12 HR) 150 mg Tablet PO (05:39)
[2020-12-11] MEDS: levothyroxine 150 mcg Tablet PO (05:39)
[2020-12-11 05:52] VITALS: BP 151/98; PULSE 89; RESP 18; TEMP 36.3; O2SAT 94
[2020-12-11] MEDS: ARIPiprazole 10 mg Tablet PO (07:52)
--- NOTE | 2020-12-11 07:52 | PC.NURSE ---
REFUSED SCHEDULED NYSTATIN POWDER THIS MORNING, PT STATED I GOT IT LAST NIGHT, I JUST WANT TO GO HOME.
[2020-12-11 10:36] VITALS: BP 151/98; PULSE 89; RESP 18; TEMP 36.3; O2SAT 94
--- NOTE | 2020-12-11 10:44 | PC.SOCIAL ---
Important Medicare Message Reviewed previously signed Important Medicare Message with patient. Verbalized understanding and notated updates. Copy to chart and original to patient.
--- NOTE | 2020-12-11 13:42 | PM.NDC ---
Diagnoses at Discharge Discharge Diagnosis (1) Fracture of distal end of fibula: Status: Acute Qualifiers: Encounter type: initial encounter Fracture morphology: unspecified fracture morphology Fracture type: closed Laterality: right Qualified Code(s): S82.831A - Other fracture of upper and lower end of right fibula, initial encounter for closed fracture (2) Seasonal allergies: Status: Acute (3) Nicotine dependence, cigarettes, uncomplicated: Status: Chronic (4) Anxiety: Status: Chronic (5) Syncope and collapse: Status: Acute (6) Axillary nerve palsy: Status: Acute (7) Leg edema: Status: Acute (8) Acute psychosis: Status: Resolved (9) Nicotine dependence, cigarettes, with unspecified nicotine-induced disorders: Status: Acute (10) Bipolar disorder: Status: Acute (11) Hypothyroidism: Status: Acute Qualifiers: Hypothyroidism type: unspecified Qualified Code(s): E03.9 - Hypothyroidism, unspecified (12) Cannabis abuse: Status: Acute Reason for Visit Reason for Visit: 96HR Brief History: History of Present Illness Jonna Zaidi is a 45 year old female who presented to the emergency department the following report: Chief Complaint: Psychiatric Symptoms Stated Complaint: 96HR Time Seen by Provider: 12/04/20 20:22 Source: patient and police Mode of arrival: ambulatory History of Present Illness: HPI Narrative: This is a 45-year-old female who was brought in by law enforcement with a 96-hour court-ordered hold. She was brought in for psychiatric evaluation due to symptoms that appear to be manic. When I spoke to her she said she is , she has been since May and is yet to see an loft worker apprentice for this. She also complains of right ankle pain. She feels her ankle is broken. On arrival to the emergency department she was laughing maniacally. According to the affidavit that was brought in by the professor of law she had claimed that she was Shirley the mother tushar Laura. She was very loud in the emergency department, was rude to the line control officer that was with her, calling him an idiot. Her family states that she has been off her medications for bipolar disorder. MD complaint: altered mental status Duration: constant History of same: Yes Context: not taking psychiatric medications Associated symptoms: Reports delusions Treatments prior to arrival: placed on mental health hold. She was admitted to the neuropsychiatric unit for definitive treatment of those issues. Today she presents quite animated and psychotic. She is remodeling her ankle and her believe that she is . 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 She is also fixated on her ankle/foot injury and wanting a crutch and not willing to accept the walker that we and PT has proposed. We a long discussion about the risks of having a crutch on the unit like this but she is not open to reason. She denies having any problems, denies any reason to be hospitalized and reports having no idea why she is been put on a 96-hour hold. As above she has multiple delusions that are fixed and has no real connection to reality at this moment, surrounding specific issues. She denies any significant changes since her last hospitalization and excerpt of her last day is included below for context. She was unwilling to answer questions reviewing her history. Her UDS was positive for cannabis and benzodiazepines. Per her 12/29/2019 [facility] inpatient eval: History of Present Illness Jonna Zaidi is a 44 year old female who presents today very resistant to the interview. She was not interested in having a conversation or allowing this database report writer to give a full evaluative process. We discussed the purpose of her visit, and she very clearly, adamantly, and angrily communicated that she brought herself here. However, we acknowledged that she is on a 96-hour hold and people have filled out affidavits. She endorsed that she needed to go home, and this database report writer acknowledged to her that her one vehicle to go home was for her to talk with me and explain the circumstances that brought her here. I offered to her that I would be very open minded and open to the possibility of this being a quick process if the information moves us in that direction, however, she was not willing to engage in the conversation. I asked if she was interested in initiating some medication to help with whatever symptoms led to her bringing herself here, and she was resistant and rejected that approach. Meds NPU Home Medications Medication Instructions Recorded Confirmed Last Taken Type jyhdfvj-hqjzjhijgbpja-pzcnmsik 250 2 tab PO DAILY PRN tab 11/03/19 12/02/19 Unknown History mg-250 mg-65 mg tablet bupropion HCl 150 mg 24 hr tablet, 150 mg PO QAM 11/03/19 12/02/19 Unknown History extended release metformin 500 mg tablet,extended 500 mg PO DAILY 11/03/19 12/02/19 Unknown History release 24 hr topiramate 100 mg tablet 100 mg PO DAILY #30 tab 12/02/19 12/29/19 Unknown Rx levothyroxine 137 mcg capsule 137 mcg PO DAILY #30 cap 12/03/19 12/29/19 Unknown Rx Maxalt-[employer] See Rx Instructions .ROUTE 12/29/19 12/29/19 Unknown History .COMPLEX PRN MDD 3 tablets Allergies Allergy/AdvReac Type Severity Reaction Status Date / Time metronidazole [From Flagyl] Allergy ADR-Itching Verified 12/28/19 21:49 Sulfa (Sulfonamide Allergy ALGY-Bliste Verified 12/28/19 21:49 Antibiotics) r sumatriptan [From Imitrex] Allergy ALGY-Rash Verified 12/28/19 21:49 PFSH NPU PFSH: Medical History Endometriosis Hypothyroidism IBS (irritable bowel syndrome) Migraine Surgical History S/P appendectomy S/P cholecystectomy S/P endometrial ablation S/P foot surgery S/P sinus surgery S/P tonsillectomy Family History Grandmother Dementia Stroke Cancer Mother Hypertension Father Hypertension Grandfather Diabetes Social History Smoking and tobacco status: never smoked Alcohol intake: current Alcohol intake frequency: holidays/special occasions only History of recent travel: No Meds NPU Home Medications Medication Instructions Recorded Confirmed Last Taken Type levothyroxine 150 mcg capsule 150 mcg PO DAILY 14 Days #14 cap 07/03/20 12/05/20 09/14/20 Rx hydrochlorothiazide 25 mg tablet 25 mg PO QAM #30 tab 07/21/20 12/05/20 09/13/20 Rx bupropion HCl 150 mg tablet,12 hr 150 mg PO QAM #30 tab 09/18/20 12/05/20 Unknown Rx sustained-release hydroxyzine pamoate 50 mg capsule 50 mg PO BID PRN #60 cap 09/18/20 12/05/20 Unknown Rx topiramate 100 mg tablet 100 mg PO .qhs #30 tab 09/18/20 12/05/20 Unknown Rx topiramate 25 mg tablet 25 mg PO .qhs #30 tab 09/18/20 12/05/20 Unknown Rx levocetirizine 5 mg tablet 5 mg PO DAILY #90 tab 11/09/20 12/05/20 Unknown Rx Allergies Allergy/AdvReac Type Severity Reaction Status Date / Time codeine Allergy ADR-Heartbu Verified 12/04/20 20:36 [From Tylenol-Codeine #3] rn metronidazole [From Flagyl] Allergy ADR-Itching Verified 12/04/20 20:36 Sulfa (Sulfonamide Allergy ALGY-Bliste Verified 12/04/20 20:36 Antibiotics) r sumatriptan [From Imitrex] Allergy ALGY-Rash Verified 12/04/20 20:36 acetaminophen AdvReac Mild ADR-Heartbu Verified 12/05/20 10:04 [From Tylenol-Codeine #3] rn PFSH NPU PFS: Medical History (Updated 12/06/20 @ 11:19 by Dewayne Puga MD) Bipolar disorder, in partial remission, most recent episode depressed Endometriosis Hypothyroidism IBS (irritable bowel syndrome) Migraine Surgical History (Reviewed 12/05/20 @ 11:48 by Jonatan Manuel MD, [facility]) S/P appendectomy S/P cholecystectomy S/P endometrial ablation S/P foot surgery S/P sinus surgery S/P tonsillectomy Family History (Reviewed 12/05/20 @ 11:48 by Jonatan Manuel MD, [facility]) Grandmother Dementia Stroke Cancer Mother Hypertension Father Hypertension Grandfather Diabetes Cancer Social History (Reviewed 12/05/20 @ 11:48 by Jonatan Manuel MD, [facility]) Smoking and tobacco status: current every day smoker cigarettes Packs smoked per day: 0.25 and e-cigarettes E-Cigarette Details: e-cigarette E-cig/vape details: 3 puffs 3-4 times per day Quit status (tobacco): quit date established Planned quit date: 03/02/20 Second hand smoke exposure: Yes (boyfriend is quiting with her.) Alcohol intake: current Alcohol intake frequency: holidays/special occasions only Marital status: History of recent travel: Yes (travel to [place] last week ) Current gender identity: Female Hospital Course Hospital Course Jonna presented to the emergency department on a 96-hour hold with reports of mental health decompensation, concerns for lethality and psychosis. She was admitted to the neuropsychiatric unit for definitive treatment of those issues. On the unit she was fairly resistant to treatment initially and slowly acclimated to the individual, group and milieu therapies. She was started on Abilify and ultimately Abilify maintainer and given some tramadol for pain and she showed significant improvement. She was able to contract for safety at the time of discharge. During the hospitalization, patient had routine laboratory studies which were within normal limits except for few outliers. Additionally there was a general medical evaluation which was also within normal limits and revealed no new acute processes. Discharge Summary: At the time of discharge, lethality was denied and psychosis was resolving. Mood and anxiety were well managed. Patient endorsed a plan to avoid all drugs of abuse and follow-up with the aftercare recommendations of the treatment team. Patient was evaluated and deemed to be absent credible lethality, and had achieved the maximum benefit from an inpatient hospitalization, so was discharged. Involuntary Hold Information 96 Hour Hold: 96 Hour Involuntary Admission: Yes 96 Hour Hold Ending Date: 12/08/20 96 Hour Hold Ending Time: 20:35 Mental Status Exam MSE Comments: This is an obese versus morbidly obese, white female in hospital scrubs with adequate grooming and eye contact. No abnormal movements except for mild gait instability with her boot. Cooperative with exam in no acute distress. Speech was normal rate and volume. Mood described as pretty good; affect euthymic. Thought process, mostly organized. Thought content: She denied suicidal or homicidal ideation, there were no delusions reported but she is seeming to be more open about her somatic delusional thinking able to hear about concerns about her thinking she is . Attention and concentration appeared intact, and memory was unreliable, but none were formally tested. She is alert and oriented x3. Insight and judgment are improving, impulse control is improving. Discharge Data Data Completed and Pending: Completed Studies During Hospitalization Category Date Time Status XR ankle RT min 3 V* [id number] Stat Exams 12/04/20 21:08 Completed Vitals: Last Vital Signs Temp 97.3 F L 12/11/20 10:36 Pulse 89 12/11/20 10:36 Resp 18 12/11/20 10:36 BP 151/98 12/11/20 10:36 Pulse Ox 94 12/11/20 10:36 Discharge Plan Discharge Patient Disposition: Home Condition: Stable Prescriptions: New Abilify Maintena 400 mg suspension,extended rel recon 400 mg IM Q28D 28 Days Qty: 1 RF: 1 trazodone 50 mg Tablet 50 mg PO BEDTIME PRN (Reason: Insomnia) 30 Days Qty: 30 RF: 1 tramadol 50 mg Tablet 50 mg PO Q8H PRN (Reason: Moderate Pain) 15 Days Qty: 45 RF: 1 Continued Wellbutrin SR 150 mg tablet sustained-release 12 hr 150 mg PO QAM 30 Days Qty: 30 RF: 1 hydroxyzine pamoate 50 mg capsule 50 mg PO BID PRN (Reason: anxiety) 30 Days Qty: 60 RF: 1 topiramate 25 mg tablet 25 mg PO .qhs 30 Days Qty: 30 RF: 1 hydrochlorothiazide 25 mg tablet 25 mg PO QAM 30 Days Qty: 30 RF: 1 topiramate 100 mg tablet 100 mg PO .qhs 30 Days Qty: 30 RF: 1 Xyzal 5 mg tablet 5 mg PO DAILY 30 Days Qty: 90 RF: 1 levothyroxine 150 mcg capsule 150 mcg PO DAILY 30 Days Qty: 30 RF: 1 Discharge Orders: Discharge Order (Routine); Ordered 12/11/20 Ordered By: Dewayne Puga Referrals: Tammy Su APRN [Nurse Practitioner] - 01/08/21 10:15 am (Appointment with Thalia Su for monthly Abilify Maintenna 400mg Injection. Please picker packer this medication from the pharmacy and bring with you to your appointment.) Kaylen Claire MS, PLP [Therapist] - 12/18/20 1:45 pm (Appointment will be in the office.) Discharge Diet: Regular Discharge Activity: Limit activity as instructed Patient Instructions: Trazodone (By mouth), Tramadol (By mouth), Aripiprazole (Injection) Discharge Attestations NPU Time Spent in Discharge Care*: less than 30 min Specific Discharge Activities: Specific discharge activities: educating patient, discussing with case repairer/social workers/dc planners, documenting/other paperwork and evaluating patient/reviewing data Coding Level of Care Code Acute Chg FW DC note Diagnoses Fracture of distal end of fibula S82.831A Encounter type: initial encounter Fracture morphology: unspecified fracture morphology Fracture type: closed Laterality: right Seasonal allergies J30.2 Nicotine dependence, cigarettes, uncomplicated F17.210 Anxiety F41.9 Syncope and collapse R55 Axillary nerve palsy G54.0 Leg edema R60.0 Acute psychosis F23 Nicotine dependence, cigarettes, with unspecified nicotine-induced disorders F17.219 Bipolar disorder F31.9 Hypothyroidism E03.9 Hypothyroidism type: unspecified Cannabis abuse F12.10
== END 2020-12-11 11:01 | disposition home or self-care (01) | DRG 885 ==
LOC: ER 20:55 → NP 23:11
PROVIDERS: Emergency Medicine; Admitting Provider Psychiatry & Neurology Psychiatry; Emergency Provider Family Medicine; PCP Family Medicine; Visit Provider Psychiatry & Neurology Psychiatry
DX: F31.9 Bipolar disorder, unspecified (principal); Z68.41 Body mass index [BMI] 40.0-44.9, adult; E03.9 Hypothyroidism, unspecified; K58.9 Irritable bowel syndrome, unspecified; F17.210 Nicotine dependence, cigarettes, uncomplicated; E66.01 Morbid (severe) obesity due to excess calories; S82.831A Other fracture of upper and lower end of right fibula, initial encounter for closed fracture; X58.XXXA Exposure to other specified factors, initial encounter; F41.9 Anxiety disorder, unspecified; G58.8 Other specified mononeuropathies; F12.10 Cannabis abuse, uncomplicated; J30.2 Other seasonal allergic rhinitis; Z81.8 Family history of other mental and behavioral disorders
CPT/HCPCS: 73610; 80053; 80306; 80307; 81001; 81025; 85025; 87086; 96372; 97161; 97760; 99285; J2060; J3486; L4361

== ENCOUNTER → 2020-12-14 11:12 | Outpatient (BNVA) | payer OTHER, SELFPAY | PROVIDERS: PCP Family Medicine; Visit Provider Nurse Practitioner Psychiatric/Mental Health | DX: F31.75 Bipolar disorder, in partial remission, most recent episode depressed (principal) | CPT/HCPCS: 80061; 83036 ==

== ENCOUNTER → 2020-12-25 14:44 | Outpatient (BNVA) | payer MEDICARE, MEDICAID, SELFPAY ==
[2020-12-15 15:04] VITALS: BP 154/86; BMI 50.4
== END ==
PROVIDERS: PCP Family Medicine; Visit Provider Family Medicine
DX: N92.6 Irregular menstruation, unspecified (principal)
CPT/HCPCS: 81025

== ENCOUNTER → 2021-01-11 13:09 | Outpatient (BNVA) | payer MEDICARE, MEDICAID, SELFPAY ==
[2020-12-15 15:04] VITALS: BP 154/86; BMI 50.4
== END ==
PROVIDERS: PCP Family Medicine; Visit Provider Nurse Practitioner Psychiatric/Mental Health
DX: F31.2 Bipolar disorder, current episode manic severe with psychotic features (principal); F43.12 Post-traumatic stress disorder, chronic
CPT/HCPCS: 99214

== ENCOUNTER → 2021-01-15 10:24 | Outpatient (BNVA) | payer MEDICARE, MEDICAID, SELFPAY ==
[2020-12-15 15:04] VITALS: BP 154/86; BMI 50.4
== END ==
PROVIDERS: PCP Family Medicine; Visit Provider Nurse Practitioner Psychiatric/Mental Health
DX: F31.2 Bipolar disorder, current episode manic severe with psychotic features (principal); F43.12 Post-traumatic stress disorder, chronic; F31.73 Bipolar disorder, in partial remission, most recent episode manic
CPT/HCPCS: 96372; 99213

== ENCOUNTER → 2021-02-12 12:54 | Outpatient (BNVA) | payer MEDICARE, MEDICAID, SELFPAY ==
[2020-12-15 15:04] VITALS: BP 154/86; BMI 50.4
== END ==
PROVIDERS: PCP Family Medicine; Visit Provider Nurse Practitioner Psychiatric/Mental Health
DX: F31.73 Bipolar disorder, in partial remission, most recent episode manic (principal)
CPT/HCPCS: 96372; 99213

== ENCOUNTER → 2021-02-27 15:15 | Outpatient (BNVA) | payer MEDICARE, MEDICAID, SELFPAY ==
[2020-12-15 15:04] VITALS: BP 154/86; BMI 50.4
== END ==
PROVIDERS: PCP Family Medicine; Visit Provider Family Medicine
DX: E03.9 Hypothyroidism, unspecified (principal)
CPT/HCPCS: 84443

== ENCOUNTER → 2021-03-08 12:56 | Outpatient (BNVA) | payer MEDICARE, MEDICAID, SELFPAY ==
[2020-12-15 15:04] VITALS: BP 154/86; BMI 50.4
== END ==
PROVIDERS: PCP Family Medicine; Visit Provider Psychiatry & Neurology Psychiatry
DX: F31.73 Bipolar disorder, in partial remission, most recent episode manic (principal); F43.12 Post-traumatic stress disorder, chronic
CPT/HCPCS: 96372; 99213

== ENCOUNTER → 2021-04-06 08:06 | Outpatient (BNVA) | payer MEDICARE, MEDICAID, SELFPAY ==
[2020-12-15 15:04] VITALS: BP 154/86; BMI 50.4
== END ==
PROVIDERS: PCP Family Medicine; Visit Provider Psychiatry & Neurology Psychiatry
DX: F31.73 Bipolar disorder, in partial remission, most recent episode manic (principal); F43.12 Post-traumatic stress disorder, chronic
CPT/HCPCS: 96372; 99213

== ENCOUNTER → 2021-05-04 09:11 | Outpatient (BNVA) | payer MEDICARE, MEDICAID, SELFPAY ==
[2020-12-15 15:04] VITALS: BP 154/86; BMI 50.4
== END ==
PROVIDERS: PCP Family Medicine; Visit Provider Family Medicine
DX: E03.9 Hypothyroidism, unspecified (principal)
CPT/HCPCS: 84443

== ENCOUNTER → 2021-05-10 13:16 | Outpatient (BNVA) | payer MEDICARE, MEDICAID, SELFPAY ==
[2020-12-15 15:04] VITALS: BP 154/86; BMI 50.4
== END ==
PROVIDERS: PCP Family Medicine; Visit Provider Nurse Practitioner Psychiatric/Mental Health
DX: F43.12 Post-traumatic stress disorder, chronic (principal); F31.73 Bipolar disorder, in partial remission, most recent episode manic
CPT/HCPCS: 96372; 99214